=== PATIENT | female | born 1990 | race Caucasian/White ===

== ENCOUNTER 2020-02-15 10:55 | Inpatient (IN) | payer OTHER ==
[~2020-02-15] VITALS: Ht 170.2 cm; Wt 96.9 kg
[~2020-02-15 10:55] MED LIST: ABIL1TAB11 PO; AMLO25TA PO
[2020-02-15 12:14] LABS: HEMATOCRIT 44.4 % (36.0-47.0); HEMOGLOBIN 14.2 g/dl (12.0-15.5); MEAN CORPUSCULAR VOLUME 90.6 fl (80.0-96.0); PLATELET COUNT, AUTOMATED 285 10^3/uL (150-450); WHITE BLOOD COUNT 9.6 10^3/uL (4.0-10.0)
[2020-02-15 12:35] LABS: HCG, SERUM QUALITATIVE NEGATIVE (NEGATIVE)
[2020-02-15 12:53] LABS: ACETAMINOPHEN LEVEL < 2.0 UG/ML (10.0-30.0); ALT/SGPT 24 U/L (12-78); BILIRUBIN,DIRECT 0.2 MG/DL (0.0-0.2); BILIRUBIN,TOTAL 0.6 MG/DL (0.2-1.0); BLOOD UREA NITROGEN 7 MG/DL (7-18); CALCIUM LEVEL 9.6 MG/DL (8.5-10.1); CARBON DIOXIDE LEVEL 25 MEQ/L (21-32); CHLORIDE LEVEL 107 MEQ/L (98-107); CREATININE FOR GFR 0.76 MG/DL (0.55-1.30); ETHYL ALCOHOL (ETHANOL) < 0.003 % (0.000-0.010); GLOMERULAR FILTRATION RATE > 60.0 (>60); GLUCOSE, FASTING 93 MG/DL (70-100); POTASSIUM SERUM 4.1 MEQ/L (3.5-5.1); SALICYLATE LEVEL < 1.7 MG/DL (5.0-30.0); SODIUM LEVEL 141 MEQ/L (136-145); THYROID STIMULATING HORMONE 0.834 uIU/ML (0.358-3.740); TOTAL PROTEIN 7.3 GM/DL (6.4-8.2)
[2020-02-15] MEDS ORDERED: LORazepam 2 MG TAB PO STA (13:01)
[2020-02-15 14:03] LABS: AMPHETAMINES LEVEL URINE NEGATIVE (NEGATIVE); BARBITURATES URINE NEGATIVE (NEGATIVE); BENZODIAZEPINES URINE POSITIVE (NEGATIVE); CANNABINOIDS URINE POSITIVE (NEGATIVE); COCAINE METABOLITE URINE NEGATIVE (NEGATIVE); METHADONE URINE NEGATIVE (NEGATIVE); OPIATES URINE NEGATIVE (NEGATIVE); PHENCYCLIDINE URINE NEGATIVE (NEGATIVE)
[2020-02-15] MEDS ORDERED: MOM 30ML SUSPENSION UDC PO PRN (15:00)
[2020-02-15] MEDS ORDERED: MAALOX 30 ML SUSP *UDC PO PRN (15:00)
[2020-02-15] MEDS ORDERED: AMLO2.5T3 PO (15:38)
[2020-02-15] MEDS ORDERED: ABIL1TAB11 PO (15:38)
[2020-02-15 17:31] VITALS: BP 134/78
[2020-02-15] MEDS: traZODone 50 MG TAB PO PRN (21:11)
[2020-02-15] MEDS: OLANZapine ORAL DISINTEGRATING TAB 5MG PO PRN (21:11)
[2020-02-16] MEDS: OLANZapine ORAL DISINTEGRATING TAB 5MG PO PRN (07:48)
--- NOTE | 2020-02-16 10:06 | MHHPEPDOC ---
[facility] History & Physical History and Physical DATE OF ADMISSION: Feb 15, 2020 at 15:00 HPI: Patients attempted to be seen today, however, she is still quite distorted. Shes nearly catatonic and is unable to respond to many discussions. She primarily is unable to communicate in single words. She was admitted overnight after reportedly making suicidal statements, but she had poor memory of the reported events. She appears to have decompensated quite a bit. No notable history of suicide attempts. Family history unclear at this time. Social history had been living with mother. No known substance use problems at this time. Unable to obtain other information. MEDICAL HISTORY: The patient has a medical history significant for its two previous submissions last several weeks ago when she was started on Abilify for psychotic illness. Objective Speech: Broken and sparse. Slowed speaking. Repetitive words. Judgement: Poor. Insight: Poor. 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 Will discontinue Abilify, Zyprexa, and Haldol. Shes likely catatonic which could be causing her difficulties with catatonia. Well start Ativan 0.5 mg BID; recommend direct service professional provider to be cautious with neuroleptic as she resolves as it could provoke more catatonia. Low threshold for 1 to 1 sitter due to unusual behavior. Estimate length of stay is 3-5 days. Vital Signs Vital Signs Date Time Temp Pulse Resp B/P (MAP) Pulse Ox O2 Delivery O2 Flow Rate FiO2 02/15/20 17:31 97.2 86 16 134/78 (96) 97 Room Air Laboratory Data 24H Labs Laboratory Tests 2 02/15/20 11:53: Nucleated Red Blood Cells % (auto) 0.0, Anion Gap 9, Glomerular Filtration Rate > 60.0, Calcium Level 9.6, Total Bilirubin 0.6, Direct Bilirubin 0.2, Aspartate Amino Transf (AST/SGOT) 13, Alanine Aminotransferase (ALT/SGPT) 24, Alkaline Phosphatase 59, Total Protein 7.3, Albumin 4.0, Albumin/Globulin Ratio 1.2, Thyroid Stimulating Hormone (TSH) 0.834, Human Chorionic Gonadotropin, Qual NEGATIVE, Salicylates Level < 1.7L, Acetaminophen Level < 2.0L, Ethyl Alcohol Level < 0.003 02/15/20 13:21: Urine Opiates Screen NEGATIVE, Urine Methadone Screen NEGATIVE, Urine Barbiturates Screen NEGATIVE, Urine Phencyclidine Screen NEGATIVE, Urine Amphet amines Screen NEGATIVE, Urine Benzodiazepines Screen POSITIVEH, Urine Cocaine Metabolite Screen NEGATIVE, Urine Cannabinoids Screen POSITIVEH CBC/BMP Laboratory Tests 02/15/20 11:53 Medications Scheduled Amlodipine Besylate (Amlodipine Besylate) 2.5 Mg Tablet, 2.5 MG PO BID, (Reported) PATIENT STATES THIS IS MAKING HER JITTERY Aripiprazole (Abilify) 5 Mg Tablet, 5 MG PO QHS, (Reported) Allergies Coded Allergies: No Known Allergies (Verified , 06/18/04) DAYSI GAGE DO Feb 16, 2020 10:06
[2020-02-16] MEDS ORDERED: LORazepam 0.5 MG TAB PO ONE (13:45)
[2020-02-16 18:38] VITALS: BP 112/66
[2020-02-16] MEDS: LORazepam 0.5 MG TAB PO SCH (21:03)
[2020-02-17] MEDS: traZODone 50 MG TAB PO PRN ×2 (01:01→23:52)
[2020-02-17 07:06] VITALS: BP 133/84
[2020-02-17] MEDS: LORazepam 0.5 MG TAB PO SCH (09:08)
[2020-02-17] MEDS ORDERED: LORazepam 1 MG TAB PO ONE (13:00)
[2020-02-17 17:34] VITALS: BP 133/82
--- NOTE | 2020-02-17 17:45 | HPEPDOC ---
General Date of Admission Feb 15, 2020 at 15:00 Date of Service: Feb 16, 2020 Chief Complaint The patient is a 30-year-old female admitted with a reason for visit of Unspecified Psychotic Disorder. History of Present Illness Patient is a 29-year-old female with past medical history of anxiety, unspecified psychosis, hypertension [facility] for unspecified psychosis. She is being medically examined today. Patient is very anxious and suspicious and easily distracted. She was even afraid to go into the exam room. She was afraid of the stethoscope. She was continuously saying " Why do you need to know that" " Its very confusing". At one point when i asked about her mother she started crying and wanted me to call her. She would start a sentence then go to a different answer I needed to continuously cue her back to our topic. Impossible to get a relevant history. She said yes to all symptoms. She said she had congestion, and it was difficult to breathe when i asked if she had asthma she said yes. she said yes to back pain and bilateral hip pain which she said were her kidneys that were hurting. She said yes to abdominal pain but could not describe it further. She repeatedly asked to give her something to make her feel better. Home Medications Scheduled Amlodipine Besylate (Amlodipine Besylate) 2.5 Mg Tablet, 2.5 MG PO BID, (Reported) PATIENT STATES THIS IS MAKING HER JITTERY Aripiprazole (Abilify) 5 Mg Tablet, 5 MG PO QHS, (Reported) Allergies Coded Allergies: No Known Allergies (Verified , 06/18/04) Past Medical History Medical History Anxiety Unspecified psychosis hypertension Surgical History Anal fissure repair Family History Significant Family History: Renal disease father Social History * Smoker: quit less than 1 year Alcohol: Denies Drugs: marijuana A-FIB/CHADSVASC A-FIB History Current/History of A-Fib/PAF?: No Physical Examination General Exam: Positive: Alert, Cooperative, No Acute Distress, Other (Easily distracted, ) Eye Exam: Positive: PERRLA, Conjunctiva & lids normal, EOMI; Negative: Sclera icteric ENT Exam: Positive: Atraumatic, Mucous membr. moist/pink, Pharynx Normal Neck Exam: Positive: Supple; Negative: JVD, thyromegaly Chest Exam: Positive: Clear to auscultation, Normal air movement Heart Exam: Positive: Rate Normal, Regular Rhythm, Normal S1, Normal S2; Negative: Murmurs, Rubs Abdomen Exam: Positive: Normal bowel sounds, Soft; Negative: Tenderness, Hepatospenomegaly Extremity Exam: Positive: Normal pulses; Negative: Clubbing, Cyanosis, Edema Neuro Exam: Positive: Normal Speech, Strength at 5/5 X4 ext, Normal Tone Psych Exam: Positive: Anxiety Vital Signs Vital Signs Date Time Temp Pulse Resp B/P (MAP) Pulse Ox O2 Delivery O2 Flow Rate FiO2 02/16/20 18:38 97.7 86 18 112/66 (81) 02/15/20 17:31 97 Room Air Assessment/Plan Patient is a 29-year-old female with past medical history of anxiety, unspecified psychosis, hypertension was [facility] for unspecified psychosis. She is being medically examined today. Psychosis As per psychiatry No active medical issues will sign off. Plan / VTE VTE Prophylaxis Ordered?: No (freely ambulatory) SHELTON DAVIS MD Feb 17, 2020 05:49
[2020-02-17] MEDS: LORazepam 1 MG TAB PO SCH (23:52)
[2020-02-18 06:49] VITALS: BP 134/89
[2020-02-18] MEDS: LORazepam 1 MG TAB PO SCH ×3 (08:56→20:24)
[2020-02-18 18:44] VITALS: BP 118/76
[2020-02-18] MEDS: traZODone 50 MG TAB PO PRN (20:24)
[2020-02-18] MEDS: ACETAMINOPHEN TAB 650MG DOSE (2X325MG) PO PRN (21:43)
[2020-02-19 06:08] VITALS: BP 130/87
--- NOTE | 2020-02-19 07:39 | MHIPN ---
PSYCHIATRIC DATE: 02/17/2020 The patient states today "I could be doing better." She said she did not get much sleep. She is definitely confused. She told me that she has racing thoughts, and before I could say anything else she stood up and was holding her stomach and was walking toward me, and she kept repeating "Wait, wait. There is something wrong. Wait." At that point I could not get much more information from her, and staff had to help escort her out of the room, because she did not want to leave. MENTAL STATUS EXAMINATION: Unable to complete but definitely she is psychotic with poor insight and judgment. DIAGNOSIS: Unspecified psychotic disorder. TREATMENT PLAN: At this point, as I said, the patient is acutely psychotic, and I did order some Haldol 10 mg plus Ativan 1 mg dose to give the patient, because she was pretty agitated and distressed at the time, and she did take this willingly. [id number]
[2020-02-19] MEDS: LORazepam 1 MG TAB PO SCH ×3 (07:48→20:12)
[2020-02-19 16:05] VITALS: BP 126/75
[2020-02-19] MEDS ORDERED: OLANZapine ORAL DISINTEGRATING TAB 5MG PO PRN (16:45)
[2020-02-19 17:36] LABS: HEPATITIS B CORE ANTIBODY IGM NEGATIVE (NEGATIVE); HEPATITIS C VIRUS ABY INDEX 0.1 INDEX (<0.8); HIV 1&2 SCREEN CENTAUR NEGATIVE (NEGATIVE)
[2020-02-19 19:05] LABS: CHLAMYDIA DNA AMPLIFICATION NEGATIVE (NEGATIVE); GC DNA AMPLIFICATION NEGATIVE (NEGATIVE)
--- NOTE | 2020-02-19 20:11 | MHIPNPDOC ---
[facility] Progress Note Progress Note DATE OF SERVICE: 02/19/20 HISTORY: As per ED report: "Pt was brought to the ED by City Planning Aide(Aaron Freeman, ) after pt informed him today she needed help due to wanting to kill her Mother or herself. grain oilseed or pasture farm worker then took pt to the clinic where she saw a clinician and appeared confused and didn't remember making those threats. Pt has a hx of psychosis and last admitted 01/30/20 and d/c 02/08/20... Chief Complaint pt states, "I am confused and I need rest." Pt is refusing to speak to TW due to being too tired and confused. Pt appears bizarre at bedside, unable to focus. She denies hearing voices, yet is delayed in her responses. Pt is difficult to engage in conversation and mood fluctuates quite rapidly. Pt was recently admitted to [facility] on 01/29 after she was acting bizarre and running around the house naked and striking poses. Once she arrived to the ED she claimed she did not know what was going on and the ED staff was trying to kill her. Pt currently denies SI and HI, however asphalt worker is concerned pt is decompensating... VITAL SIGNS: See below. NEW TEST RESULTS: See below CURRENT MEDICATIONS: See below. MENTAL STATUS EXAMINATION: Patient is a 30-year old female, who is alert, dressed in hospital clothes, cooperative, very anxious, presents with attention seeking behavior. Speech: Is disorganized, difficult to understand, keeps repeating Wait, wait and then she tarts crying. Thought processes including: disorganized, she doesn't engage in a conversation. She cries and walks out saying she needs to use the telephone Thought content: delusional, Description of associations: loose. Description of abnormal or psychotic thoughts: she is delusional, disorganized, she denies SI/HI Judgment: poor Insight: poor. Orientation: Recent and remote memory: Unable to assess, patient is psychotic Attention span and concentration: Easily distracted Fund of knowledge: unable to assess, patient is psychotic Mood: anxious, sad, depressed Affect: congruent with mood, full, reactive. Labile DIAGNOSES: 1. Unspecified psychotic disorder ASSESSMENT: The patient was quite disorganized, she is psychotic. At one point she knelt on the floor, raised her arms as if she was praying, then she sat on the floor and safety aides came to tell her she couldn't lay on the floor, she kept saying, "No, wait, wait.... " and then she started crying just for a short period of time. When I saw her , she did not engage in a conversation with me, she was visibly upset, she kept telling me something about her and that she needed to talk to him. She was extremely anxious, she stepped out of the room and went to use the telephone, started taking to someone, I'm not sure it was her but she was very agitated on the phone. I had put orders for Abilify and Zyprexa but then, I read Dr. Pérez's notes where he says he thinks she was catatonic, therefore I discontinued the orders for Abilify and Zyprexa. She never took either one of those medications. She seems to have attention seeking behavior, she is very dramatic but she is psychotic. MANAGEMENT PLAN: As per Dr. Pérez TIME SPENT: 10 minutes. Vital Signs Vital Signs Date Time Temp Pulse Resp B/P (MAP) Pulse Ox O2 Delivery O2 Flow Rate FiO2 02/19/20 06:08 98.5 102 18 130/87 (101) 100 Room Air Current Medications Current Medications Medications (Trade) Dose Ordered Sig/Taurus Route PRN Reason Start Time Stop Time Status Last Admin Dose Admin Acetaminophen (Tylenol Tab) 650 mg Q6HP PRN PO HEADACHE or DISCOMFORT 02/15/20 15:00 02/18/20 21:43 Al Hydrox/Mg Hydrox/Simethicone (Mylanta) 30 ml Q4HP PRN PO HEARTBURN/INDIGESTION 02/15/20 15:00 Aripiprazole (AbiLIFY) 5 mg QHS PO 02/15/20 21:00 02/16/20 13:37 DC 02/15/20 20:49 Haloperidol (Haldol) 10 mg Q6HP PRN PO ANXIETY/AGITATION 02/16/20 10:15 02/16/20 13:37 DC 02/16/20 10:26 Home Med (Med Rec Complete!) ASDIRECTED XX 02/15/20 15:45 02/15/20 15:40 DC Lorazepam (Ativan) 0.5 mg BID PO 02/16/20 21:00 02/17/20 22:36 DC 02/17/20 09:08 Lorazepam (Ativan) 1 mg TID PO 02/17/20 21:00 02/19/20 15:14 Lorazepam (Ativan) 2 mg STAT STAT PO 02/15/20 13:01 02/15/20 13:02 DC 02/15/20 13:10 Magnesium Hydroxide (Milk Of Magnesia) 30 ml DAILYPRN PRN PO CONSTIPATION 02/15/20 15:00 Olanzapine (ZyPREXA ZYDIS) 5 mg Q4HP PRN PO ANXIETY/AGITATION 02/15/20 21:00 02/16/20 10:14 DC 02/16/20 07:48 Trazodone HCl (Desyrel) 50 mg QHSP PRN PO INSOMNIA 02/15/20 15:00 02/18/20 20:24 Allergies Coded Allergies: No Known Allergies (Verified , 06/18/04) JOYCE LINARES MD Feb 19, 2020 15:22
[2020-02-19] MEDS: traZODone 50 MG TAB PO PRN (20:12)
[2020-02-20] MEDS ORDERED: OLANZapine ORAL DISINTEGRATING TAB 5MG PO ONE (06:30)
[2020-02-20] MEDS ORDERED: LORazepam 1 MG TAB PO ONE (06:30)
[2020-02-20] MEDS: LORazepam 1 MG TAB PO SCH (09:06)
--- NOTE | 2020-02-20 10:40 | MHIPNPDOC ---
[facility] Progress Note Progress Note DATE OF SERVICE: 02/20/20 HPI: Carmela presents today for her psychotic disorder. She is currently sedated. She has been disorganized and aggressive through out the day, unable to be redirected. Objective Behavior: Pleasant. unable to engage. distorted. Speech: disorganized. Normal volume. poor tangible. Normal rate. Judgement: poor Affect: dysphoric Assessment F29 Unspecified psychosis not due to a substance or known physiological condition Plan Resumed 5 mg of Abilify with reduction of ativan due to reported sedation. Vital Signs Vital Signs Date Time Temp Pulse Resp B/P (MAP) Pulse Ox O2 Delivery O2 Flow Rate FiO2 02/19/20 16:05 98.0 100 20 126/75 (92) 02/19/20 06:08 100 Room Air Laboratory Data 24H Labs Laboratory Tests 2 02/19/20 15:35: Syphilis Serology NONREACTIVE, Hepatitis B Core IgM Antibody NEGATIVE, Hepatitis C Antibody Index 0.1, HIV Antigen/Antibody Combo Qual NEGATIVE 02/19/20 17:00: Chlamydia trachomatis DNA (FRANCISCO) NEGATIVE, Neisseria gonorrhoeae DNA (FRANCISCO) NEGATIVE, Trichomonas vaginalis (PCR) NOT DETECTED Current Medications Current Medications Medications (Trade) Dose Ordered Sig/Taurus Route PRN Reason Start Time Stop Time Status Last Admin Dose Admin Acetaminophen (Tylenol Tab) 650 mg Q6HP PRN PO HEADACHE or DISCOMFORT 02/15/20 15:00 02/18/20 21:43 Al Hydrox/Mg Hydrox/Simethicone (Mylanta) 30 ml Q4HP PRN PO HEARTBURN/INDIGESTION 02/15/20 15:00 Aripiprazole (AbiLIFY) 5 mg BID PO 02/19/20 21:00 Cancel Aripiprazole (AbiLIFY) 5 mg QHS PO 02/15/20 21:00 02/16/20 13:37 DC 02/15/20 20:49 Haloperidol (Haldol) 10 mg Q6HP PRN PO ANXIETY/AGITATION 02/16/20 10:15 02/16/20 13:37 DC 02/16/20 10:26 Home Med (Med Rec Complete!) ASDIRECTED XX 02/15/20 15:45 02/15/20 15:40 DC Lorazepam (Ativan) 0.5 mg BID PO 02/16/20 21:00 02/17/20 22:36 DC 02/17/20 09:08 Lorazepam (Ativan) 1 mg TID PO 02/17/20 21:00 02/20/20 09:06 Lorazepam (Ativan) 2 mg STAT STAT PO 02/15/20 13:01 02/15/20 13:02 DC 02/15/20 13:10 Magnesium Hydroxide (Milk Of Magnesia) 30 ml DAILYPRN PRN PO CONSTIPATION 02/15/20 15:00 Olanzapine (ZyPREXA ZYDIS) 5 mg Q4HP PRN PO ANXIETY/AGITATION 02/15/20 21:00 02/16/20 10:14 DC 02/16/20 07:48 Olanzapine (ZyPREXA ZYDIS) 5 mg Q6HP PRN PO ANXIETY/AGITATION 02/19/20 16:45 Cancel Trazodone HCl (Desyrel) 50 mg QHSP PRN PO INSOMNIA 02/15/20 15:00 02/19/20 20:12 Allergies Coded Allergies: No Known Allergies (Verified , 06/18/04) DAYSI GAGE DO Feb 20, 2020 10:40
[2020-02-20 16:28] VITALS: BP 114/67
[2020-02-20] MEDS: traZODone 50 MG TAB PO PRN (22:28)
[2020-02-21] VITALS (14 sets, daily range): BP systolic 138–183; BP diastolic 68–87
[2020-02-21] MEDS ORDERED: LORazepam 0.5 MG TAB PO ONE (04:15)
--- NOTE | 2020-02-21 10:38 | MHIPNPDOC ---
[facility] Progress Note Progress Note DATE OF SERVICE: 02/21/20 Subjective HPI: Patient met with multiple times throughout the day, she is quite distorted and disorganized. She was lashing out at various individuals yelling, screaming, and jumping down the hallways and throwing objects. She continues to be hysterical, running around in a fair daze state throughout the day. Objective Appearance: Hygiene fair. Thought Form: Tangential. Psychotic. Thought blocking present. Judgement: Poor. Insight: Poor. Assessment F29 Unspecified psychosis not due to a substance or known physiological cond ition Plan Continue Abilify and Ativan at this time, will likely need to increase. 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 Some treatment team members are concerned about behavioral problems, but it appears to be more the product of severe disorganization rather than a specific behavioral problem. Vital Signs Vital Signs Date Time Temp Pulse Resp B/P (MAP) Pulse Ox O2 Delivery O2 Flow Rate FiO2 02/20/20 16:28 97.9 99 18 114/67 (83) 02/19/20 06:08 100 Room Air Current Medications Current Medications Medications (Trade) Dose Ordered Sig/Taurus Route PRN Reason Start Time Stop Time Status Last Admin Dose Admin Acetaminophen (Tylenol Tab) 650 mg Q6HP PRN PO HEADACHE or DISCOMFORT 02/15/20 15:00 02/18/20 21:43 Al Hydrox/Mg Hydrox/Simethicone (Mylanta) 30 ml Q4HP PRN PO HEARTBURN/INDIGESTION 02/15/20 15:00 Aripiprazole (AbiLIFY) 5 mg BID PO 02/19/20 21:00 Cancel Aripiprazole (AbiLIFY) 5 mg QHS PO 02/20/20 21:00 02/20/20 22:28 Aripiprazole (AbiLIFY) 5 mg QHS PO 02/15/20 21:00 02/16/20 13:37 DC 02/15/20 20:49 Haloperidol (Haldol) 10 mg Q6HP PRN PO ANXIETY/AGITATION 02/16/20 10:15 02/16/20 13:37 DC 02/16/20 10:26 Home Med (Med Rec Complete!) ASDIRECTED XX 02/15/20 15:45 02/15/20 15:40 DC Lorazepam (Ativan) 0.5 mg BID PO 02/16/20 21:00 02/17/20 22:36 DC 02/17/20 09:08 Lorazepam (Ativan) 1 mg TID PO 02/17/20 21:00 02/20/20 11:45 DC 02/20/20 09:06 Lorazepam (Ativan) 2 mg STAT STAT PO 02/15/20 13:01 02/15/20 13:02 DC 02/15/20 13:10 Magnesium Hydroxide (Milk Of Magnesia) 30 ml DAILYPRN PRN PO CONSTIPATION 02/15/20 15:00 Olanzapine (ZyPREXA ZYDIS) 5 mg Q4HP PRN PO ANXIETY/AGITATION 02/15/20 21:00 02/16/20 10:14 DC 02/16/20 07:48 Olanzapine (ZyPREXA ZYDIS) 5 mg Q6HP PRN PO ANXIETY/AGITATION 02/19/20 16:45 Cancel Trazodone HCl (Desyrel) 50 mg QHSP PRN PO INSOMNIA 02/15/20 15:00 02/20/20 22:28 Allergies Coded Allergies: No Known Allergies (Verified , 06/18/04) DAYSI GAGE DO Feb 21, 2020 10:37
[2020-02-21] MEDS ORDERED: BENZTROPINE 0.5 MG TAB PO ONE (10:45)
[2020-02-21] MEDS ORDERED: diphenhydrAMINE 50MG/ML VIAL (J1200) IM STA ×2 (11:15→15:43)
[2020-02-21] MEDS ORDERED: chlorproMAZINE INJ 50MG/2ML AMP (J3230) IM STA ×2 (11:15→12:05)
--- NOTE | 2020-02-21 11:15 | MHIR ---
General Date: Feb 21, 2020 Time Initiated: 11:13 Restraint Documentation Order/Evaluation FACE TO FACE: yes PHYSICIAN ASSESSMENT: agitation, out of control REASON FOR RESTRAINT: Patient poses imminent danger of harming self or others: as above DE-ESCALATION INTERVENTIONS ATTEMPTED BEFORE USE OF RESTRAINTS:verbal and medication options [MECHANICAL AND/OR CHEMICAL] RESTRAINTS USED: 4 points and chemical sedation LENGTH OF TIME ORDERED IN RESTRAINTS: 240 minutes, less if in behavioral control WHEN TO DISCONTINUE RESTRAINTS: as above Post evaluation of restraint due in 24 hours. DAYSI GAGE DO Feb 21, 2020 11:15
[2020-02-21] MEDS ORDERED: HALOPERIDOL 5MG/ML VIAL (J1630 PER 1) IM STA (15:43)
[2020-02-21] MEDS ORDERED: LORazepam 2 MG/ML VIAL IM STA (15:43)
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
[2020-02-21 18:12] LABS: HSV IgM TYPES 1&2 <0.91 Ratio (0.00-0.90)
[2020-02-21] MEDS: traZODone 50 MG TAB PO PRN (21:27)
[2020-02-22 06:40] VITALS: BP 145/91
--- NOTE | 2020-02-22 08:15 | MHIPN ---
DATE: 02/18/2020 The patient today remains very psychotic. She has problems. She will start a sentence and will not even finish it, so cannot get much in the way of any information from her. MENTAL STATUS EXAMINATION: Unable to complete, because, as I said, you cannot really get much information from her. She is definitely psychotic, and insight and judgment are poor. DIAGNOSIS: Unspecified psychotic disorder. TREATMENT PLAN: The patient remains acutely psychotic. At this point she remains only on Ativan, as this is what she was placed on upon admission because of catatonia. When she gets really agitated, I have given her some Haldol as an as needed. JESÚS
[2020-02-22] MEDS ORDERED: OLANZapine ORAL DISINTEGRATING TAB 5MG PO ONE (10:45)
--- NOTE | 2020-02-22 11:12 | MHIPNPDOC ---
[facility] Progress Note Progress Note DATE OF SERVICE: 02/22/20 Subjective HPI: Patient met with multiple times throughout the day, she is quite distorted and disorganized. She was lashing out at various individuals yelling, screaming, and jumping down the hallways and throwing objects. She continues to be hysterical, running around in a fair daze state throughout the day. Objective Appearance: Hygiene fair. Thought Form: Tangential. Psychotic. Thought blocking present. Judgement: Poor. Insight: Poor. Assessment F29 Unspecified psychosis not due to a substance or known physiological cond ition Plan Continue Abilify and Ativan at this time, will likely need to increase. 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 Some treatment team members are concerned about behavioral problems, but it appears to be more the product of severe disorganization rather than a specific behavioral problem. Vital Signs Vital Signs Date Time Temp Pulse Resp B/P (MAP) Pulse Ox O2 Delivery O2 Flow Rate FiO2 02/22/20 06:40 98.0 100 18 145/91 (109) 97 Room Air Current Medications Current Medications Medications (Trade) Dose Ordered Sig/Taurus Route PRN Reason Start Time Stop Time Status Last Admin Dose Admin Acetaminophen (Tylenol Tab) 650 mg Q6HP PRN PO HEADACHE or DISCOMFORT 02/15/20 15:00 02/18/20 21:43 Al Hydrox/Mg Hydrox/Simethicone (Mylanta) 30 ml Q4HP PRN PO HEARTBURN/INDIGESTION 02/15/20 15:00 Aripiprazole (AbiLIFY) 5 mg BID PO 02/19/20 21:00 Cancel Aripiprazole (AbiLIFY) 5 mg QHS PO 02/20/20 21:00 02/21/20 21:27 Aripiprazole (AbiLIFY) 5 mg QHS PO 02/15/20 21:00 02/16/20 13:37 DC 02/15/20 20:49 Chlorpromazine HCl (Thorazine) 50 mg STAT STAT IM 02/21/20 11:15 02/21/20 11:17 DC 02/21/20 11:22 Chlorpromazine HCl (Thorazine) 100 mg STAT STAT IM 02/21/20 12:05 02/21/20 12:09 DC 02/21/20 12:12 Diphenhydramine HCl (Benadryl) 25 mg STAT STAT IM 02/21/20 11:15 02/21/20 11:17 DC 02/21/20 11:22 Diphenhydramine HCl (Benadryl) 50 mg STAT STAT IM 02/21/20 15:43 02/21/20 15:46 DC 02/21/20 15:49 Haloperidol (Haldol) 10 mg Q6HP PRN PO ANXIETY/AGITATION 02/16/20 10:15 02/16/20 13:37 DC 02/16/20 10:26 Haloperidol (Haldol) 10 mg STAT STAT IM 02/21/20 15:43 02/21/20 15:46 DC 02/21/20 15:49 Home Med (Med Rec Complete!) ASDIRECTED XX 02/15/20 15:45 02/15/20 15:40 DC Lorazepam (Ativan) 0.5 mg BID PO 02/16/20 21:00 02/17/20 22:36 DC 02/17/20 09:08 Lorazepam (Ativan) 1 mg TID PO 02/17/20 21:00 02/20/20 11:45 DC 02/20/20 09:06 Lorazepam (Ativan) 2 mg STAT STAT IM 02/21/20 15:43 02/21/20 15:46 DC 02/21/20 15:48 Lorazepam (Ativan) 2 mg STAT STAT PO 02/15/20 13:01 02/15/20 13:02 DC 02/15/20 13:10 Magnesium Hydroxide (Milk Of Magnesia) 30 ml DAILYPRN PRN PO CONSTIPATION 02/15/20 15:00 Olanzapine (ZyPREXA ZYDIS) 5 mg Q4HP PRN PO ANXIETY/AGITATION 02/15/20 21:00 02/16/20 10:14 DC 02/16/20 07:48 Olanzapine (ZyPREXA ZYDIS) 5 mg Q6HP PRN PO ANXIETY/AGITATION 02/19/20 16:45 Cancel Trazodone HCl (Desyrel) 50 mg QHSP PRN PO INSOMNIA 02/15/20 15:00 02/21/20 21:27 Allergies Coded Allergies: No Known Allergies (Verified , 06/18/04) DAYSI GAGE DO Feb 22, 2020 11:12
[2020-02-22 17:23] VITALS: BP 133/90
[2020-02-22] MEDS: traZODone 50 MG TAB PO PRN (21:07)
[2020-02-23 06:39] VITALS: BP 137/71
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
[2020-02-23] MEDS: haloperidoL 5 MG TAB PO SCH ×2 (10:33→20:51)
[2020-02-23 16:05] VITALS: BP 138/88
[2020-02-23] MEDS: traZODone 50 MG TAB PO PRN (20:51)
[2020-02-24] MEDS ORDERED: LORazepam 1 MG TAB PO STA (01:42)
[2020-02-24] MEDS ORDERED: OLANZapine ORAL DISINTEGRATING TAB 5MG PO STA (01:42)
[2020-02-24 05:59] VITALS: BP 143/81
[2020-02-24] MEDS: haloperidoL 5 MG TAB PO SCH ×2 (09:12→20:11)
[2020-02-24] MEDS: OLANZapine ORAL DISINTEGRATING TAB 5MG PO PRN (10:02)
[2020-02-24] MEDS: ACETAMINOPHEN TAB 650MG DOSE (2X325MG) PO PRN (10:06)
[2020-02-24 10:15] VITALS: BP 135/74
[2020-02-24] MEDS ORDERED: HALOPERIDOL 5MG/ML VIAL (J1630 PER 1) IM STA (10:21)
[2020-02-24] MEDS ORDERED: LORazepam 2 MG/ML VIAL IM STA (10:21)
[2020-02-24] MEDS ORDERED: diphenhydrAMINE 50MG/ML VIAL (J1200) IM STA (10:21)
[2020-02-24 10:30] VITALS: BP 129/70
--- NOTE | 2020-02-24 10:32 | MHIR ---
General Date: Feb 24, 2020 Time Initiated: 10:15 Restraint Documentation Order/Evaluation FACE TO FACE: Yes. PHYSICIAN ASSESSMENT: Pulling on restraints, agitated, manipulative as she was changing answers and then saying she was lying REASON FOR RESTRAINT: Patient poses imminent danger of harming self or others: Jumping on furniture, pushing staff, threatening other patients. DE-ESCALATION INTERVENTIONS ATTEMPTED BEFORE USE OF RESTRAINTS: Verbal redirection and PO medications [MECHANICAL AND/OR CHEMICAL] RESTRAINTS USED: 4 points and chemical sedation LENGTH OF TIME ORDERED IN RESTRAINTS: 240 minutes or less. WHEN TO DISCONTINUE RESTRAINTS: When the patient is no longer a threat to themselves or others. Post evaluation of restraint due in 24 hours. BETH ABRAHAM DO Feb 24, 2020 10:32
[2020-02-24 16:20] VITALS: BP 119/67
--- NOTE | 2020-02-24 16:23 | MHIPNPDOC ---
[facility] Progress Note Progress Note DATE OF SERVICE: 02/24/20 HISTORY: As per ED reports: "As per ED report: "Pt was brought to the ED by [employer](Aaron Freeman, ) after pt informed him today she needed help due to wanting to kill her Mother or herself. social staff worker then took pt to the clinic where she saw a clinician and appeared confused and didn't remember making those threats. Pt has a hx of psychosis and last admitted 01/30/20 and d/c 02/08/20... Chief Complaint pt states, "I am confused and I need rest." Pt is refusing to speak to TW due to being too tired and confused. Pt appears bizarre at bedside, unable to focus. She denies hearing voices, yet is delayed in her responses. Pt is difficult to engage in conversation and mood fluctuates quite rapidly. Pt was recently admitted to [facility] on 01/29 after she was acting bizarre and running around the house naked and striking poses. Once she arrived to the ED she claime d she did not know what was going on and the ED staff was trying to kill her. Pt currently denies SI and HI, however track repair worker is concerned pt is decompensating..." VITAL SIGNS: See below. NEW TEST RESULTS: See below CURRENT MEDICATIONS: See below. MENTAL STATUS EXAMINATION: Patient is a 30-year old female, who is alert, dressed in hospital clothes, uncooperative Speech: Is disorganized, she mumbles, is not engaging in a conversation at this time Thought processes including: disorganized Thought content: Delusional, she is not talking to me, she is mumbling, not making eye contact. Description of associations: loose. Description of abnormal or psychotic thoughts: she is delusional, disorganized, she seems to be responding to internal stimuli Judgment: poor Insight: poor. Orientation: Recent and remote memory: Unable to assess, patient is psychotic Attention span and concentration: Easily distracted, she is not paying attention to me when I speak to her Fund of knowledge: unable to assess, patient is psychotic Mood: anxious, sad, depressed Affect: congruent with mood, full, reactive. Labile DIAGNOSES: 1. Unspecified psychotic disorder ASSESSMENT:The patient had to be restrained this morning because she was not responding to re direction. She was pushing staff, attempting to grab them, climbing on furniture, threatening her peers. Staff contacted me at 10:15 a.m because she was getting coded. I ordered 10 mgs of Haldol, 2 mgs of Ativan and 50 mgs of Benadryl. She was let off the restraints around 12:30 PM and she was stable, her VS were all the time within normal limits but she is still psychotic and difficult to engage with. MANAGEMENT PLAN: As per Dr. Pérez TIME SPENT: 20 minutes. Vital Signs Vital Signs Date Time Temp Pulse Resp B/P (MAP) Pulse Ox O2 Delivery O2 Flow Rate FiO2 02/24/20 10:30 97.8 83 16 129/70 95 02/24/20 10:15 Room Air Current Medications Current Medications Medications (Trade) Dose Ordered Sig/Taurus Route PRN Reason Start Time Stop Time Status Last Admin Dose Admin Acetaminophen (Tylenol Tab) 650 mg Q6HP PRN PO HEADACHE or DISCOMFORT 02/15/20 15:00 02/24/20 10:06 Al Hydrox/Mg Hydrox/Simethicone (Mylanta) 30 ml Q4HP PRN PO HEARTBURN/INDIGESTION 02/15/20 15:00 Aripiprazole (AbiLIFY) 5 mg BID PO 02/19/20 21:00 Cancel Aripiprazole (AbiLIFY) 5 mg QHS PO 02/20/20 21:00 02/23/20 10:20 DC 02/22/20 21:07 Aripiprazole (AbiLIFY) 5 mg QHS PO 02/15/20 21:00 02/16/20 13:37 DC 02/15/20 20:49 Chlorpromazine HCl (Thorazine) 50 mg STAT STAT IM 02/21/20 11:15 02/21/20 11:17 DC 02/21/20 11:22 Chlorpromazine HCl (Thorazine) 100 mg STAT STAT IM 02/21/20 12:05 02/21/20 12:09 DC 02/21/20 12:12 Diphenhydramine HCl (Benadryl) 25 mg STAT STAT IM 02/21/20 11:15 02/21/20 11:17 DC 02/21/20 11:22 Diphenhydramine HCl (Benadryl) 50 mg STAT STAT IM 02/21/20 15:43 02/21/20 15:46 DC 02/21/20 15:49 Diphenhydramine HCl (Benadryl) 50 mg STAT STAT IM 02/24/20 10:21 02/24/20 10:27 DC 02/24/20 10:38 Haloperidol (Haldol) 5 mg BID PO 02/23/20 09:00 02/24/20 09:12 Haloperidol (Haldol) 10 mg Q6HP PRN PO ANXIETY/AGITATION 02/16/20 10:15 02/16/20 13:37 DC 02/16/20 10:26 Haloperidol (Haldol) 10 mg STAT STAT IM 02/21/20 15:43 02/21/20 15:46 DC 02/21/20 15:49 Haloperidol (Haldol) 10 mg STAT STAT IM 02/24/20 10:21 02/24/20 10:27 DC 02/24/20 10:38 Home Med (Med Rec Complete!) ASDIRECTED XX 02/15/20 15:45 02/15/20 15:40 DC Lorazepam (Ativan) 0.5 mg BID PO 02/16/20 21:00 02/17/20 22:36 DC 02/17/20 09:08 Lorazepam (Ativan) 1 mg STAT STAT PO 02/24/20 01:42 02/24/20 01:43 DC 02/24/20 01:45 Lorazepam (Ativan) 1 mg TID PO 02/17/20 21:00 02/20/20 11:45 DC 02/20/20 09:06 Lorazepam (Ativan) 2 mg STAT STAT IM 02/21/20 15:43 02/21/20 15:46 DC 02/21/20 15:48 Lorazepam (Ativan) 2 mg STAT STAT IM 02/24/20 10:21 02/24/20 10:27 DC 02/24/20 10:38 Lorazepam (Ativan) 2 mg STAT STAT PO 02/15/20 13:01 02/15/20 13:02 DC 02/15/20 13:10 Magnesium Hydroxide (Milk Of Magnesia) 30 ml DAILYPRN PRN PO CONSTIPATION 02/15/20 15:00 Olanzapine (ZyPREXA ZYDIS) 5 mg Q4HP PRN PO ANXIETY/AGITATION 02/15/20 21:00 02/16/20 10:14 DC 02/16/20 07:48 Olanzapine (ZyPREXA ZYDIS) 5 mg Q6HP PRN PO ANXIETY/AGITATION 02/24/20 01:45 02/24/20 10:02 Olanzapine (ZyPREXA ZYDIS) 5 mg Q6HP PRN PO ANXIETY/AGITATION 02/19/20 16:45 Cancel Olanzapine (ZyPREXA ZYDIS) 10 mg STAT STAT PO 02/24/20 01:42 02/24/20 01:43 DC 02/24/20 01:45 Trazodone HCl (Desyrel) 50 mg QHSP PRN PO INSOMNIA 02/15/20 15:00 02/23/20 20:51 Allergies Coded Allergies: No Known Allergies (Verified , 06/18/04) JOYCE LINARES MD Feb 24, 2020 16:08
[2020-02-24] MEDS: traZODone 50 MG TAB PO PRN (20:11)
[2020-02-25 06:03] VITALS: BP 125/78
[2020-02-25] MEDS: haloperidoL 5 MG TAB PO SCH ×2 (08:42→21:53)
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
[2020-02-25] MEDS ORDERED: diphenhydrAMINE 50MG/ML VIAL (J1200) IM STA (11:21)
[2020-02-25] MEDS ORDERED: HALOPERIDOL 5MG/ML VIAL (J1630 PER 1) IM STA (11:21)
[2020-02-25] MEDS ORDERED: LORazepam 2 MG/ML VIAL IM STA (11:21)
[2020-02-25 11:45] VITALS: BP 131/70
[2020-02-25 12:00] VITALS: BP 136/76
[2020-02-25 12:15] VITALS: BP 136/73
[2020-02-25 12:30] VITALS: BP 133/71
[2020-02-25 16:19] VITALS: BP 110/63
[2020-02-26] MEDS ORDERED: HALOPERIDOL 5MG/ML VIAL (J1630 PER 1) IM STA (02:05)
[2020-02-26] MEDS ORDERED: LORazepam 2 MG/ML VIAL IM STA (02:05)
[2020-02-26] MEDS ORDERED: diphenhydrAMINE 50MG/ML VIAL (J1200) IM STA (02:05)
[2020-02-26 06:25] VITALS: BP 128/80
[2020-02-26] MEDS: haloperidoL 5 MG TAB PO SCH (08:17)
[2020-02-26] MEDS: OLANZapine ORAL DISINTEGRATING TAB 5MG PO PRN ×2 (10:16→16:48)
--- NOTE | 2020-02-26 11:09 | MHIPNPDOC ---
[facility] Progress Note Progress Note DATE OF SERVICE: 02/26/20 Subjective HPI: Carmela presents today for evaluation. Patient remains fairly disorganized and bizarre. She continues to have episodes of running around and yelling for no reason. There's some concern still among the treatment team that this is behavioral and is done for attention. Nurses report that the patient is very specific about asking for Benzos and is very much interested in getting them. The patient reported that she wanted to leave and asked specifically how she might request a court hearing. Patient became mocking and fairly demeaning quickly. Patient refused to hand the paper she filled out to the nurse, refused to sign it, crumpled it up and threw it against the wall, attempted to kick it, and kicked the wall accidentally. The patient continued to be fairly attention-seeking. Objective Speech: Normal rate. Normal volume. Repeats the phrase help me. Thought Form: Disorganized, Tangential. Judgement: Poor. Insight: Poor. Assessment F29 Unspecified psychosis not due to a substance or known physiological condition Plan Continue Haldol at this time. However, it is unclear whether her presenting problem is behavioral and there is some concern that this could specifically be done for medications, or maybe the results of a personality disorder. Monitor patient to determine if there is unusual information about her behavior. did not seem to be aware of any prior unusual behavior. Vital Signs Vital Signs Date Time Temp Pulse Resp B/P (MAP) Pulse Ox O2 Delivery O2 Flow Rate FiO2 02/26/20 06:25 98.0 88 14 128/80 (96) Room Air 02/25/20 12:30 99 Current Medications Current Medications Medications (Trade) Dose Ordered Sig/Taurus Route PRN Reason Start Time Stop Time Status Last Admin Dose Admin Acetaminophen (Tylenol Tab) 650 mg Q6HP PRN PO HEADACHE or DISCOMFORT 02/15/20 15:00 02/24/20 10:06 Al Hydrox/Mg Hydrox/Simethicone (Mylanta) 30 ml Q4HP PRN PO HEARTBURN/INDIGESTION 02/15/20 15:00 Aripiprazole (AbiLIFY) 5 mg BID PO 02/19/20 21:00 Cancel Aripiprazole (AbiLIFY) 5 mg QHS PO 02/20/20 21:00 02/23/20 10:20 DC 02/22/20 21:07 Aripiprazole (AbiLIFY) 5 mg QHS PO 02/15/20 21:00 02/16/20 13:37 DC 02/15/20 20:49 Chlorpromazine HCl (Thorazine) 50 mg STAT STAT IM 02/21/20 11:15 02/21/20 11:17 DC 02/21/20 11:22 Chlorpromazine HCl (Thorazine) 100 mg STAT STAT IM 02/21/20 12:05 02/21/20 12:09 DC 02/21/20 12:12 Diphenhydramine HCl (Benadryl) 25 mg STAT STAT IM 02/21/20 11:15 02/21/20 11:17 DC 02/21/20 11:22 Diphenhydramine HCl (Benadryl) 50 mg STAT STAT IM 02/21/20 15:43 02/21/20 15:46 DC 02/21/20 15:49 Diphenhydramine HCl (Benadryl) 50 mg STAT STAT IM 02/24/20 10:21 02/24/20 10:27 DC 02/24/20 10:38 Diphenhydramine HCl (Benadryl) 50 mg STAT STAT IM 02/25/20 11:21 02/25/20 11:23 DC 02/25/20 11:25 Diphenhydramine HCl (Benadryl) 50 mg STAT STAT IM 02/26/20 02:05 02/26/20 02:07 DC 02/26/20 02:12 Haloperidol (Haldol) 5 mg BID PO 02/23/20 09:00 02/26/20 08:17 Haloperidol (Haldol) 10 mg Q6HP PRN PO ANXIETY/AGITATION 02/16/20 10:15 02/16/20 13:37 DC 02/16/20 10:26 Haloperidol (Haldol) 10 mg STAT STAT IM 02/21/20 15:43 02/21/20 15:46 DC 02/21/20 15:49 Haloperidol (Haldol) 10 mg STAT STAT IM 02/24/20 10:21 02/24/20 10:27 DC 02/24/20 10:38 Haloperidol (Haldol) 10 mg STAT STAT IM 02/25/20 11:21 11/15/20 11:23 DC 02/25/20 11:25 Haloperidol (Haldol) 10 mg STAT STAT IM 02/26/20 02:05 02/26/20 02:07 DC 02/26/20 02:11 Home Med (Med Rec Complete!) ASDIRECTED XX 02/15/20 15:45 02/15/20 15:40 DC Lorazepam (Ativan) 0.5 mg BID PO 02/16/20 21:00 02/17/20 22:36 DC 02/17/20 09:08 Lorazepam (Ativan) 1 mg STAT STAT PO 02/24/20 01:42 02/24/20 01:43 DC 02/24/20 01:45 Lorazepam (Ativan) 1 mg TID PO 02/17/20 21:00 02/20/20 11:45 DC 02/20/20 09:06 Lorazepam (Ativan) 2 mg STAT STAT IM 02/21/20 15:43 02/21/20 15:46 DC 02/21/20 15:48 Lorazepam (Ativan) 2 mg STAT STAT IM 02/24/20 10:21 02/24/20 10:27 DC 02/24/20 10:38 Lorazepam (Ativan) 2 mg STAT STAT IM 02/25/20 11:21 02/25/20 11:23 DC 02/25/20 11:25 Lorazepam (Ativan) 2 mg STAT STAT IM 02/26/20 02:05 02/26/20 02:07 DC 02/26/20 02:11 Lorazepam (Ativan) 2 mg STAT STAT PO 02/15/20 13:01 02/15/20 13:02 DC 02/15/20 13:10 Magnesium Hydroxide (Milk Of Magnesia) 30 ml DAILYPRN PRN PO CONSTIPATION 02/15/20 15:00 Olanzapine (ZyPREXA ZYDIS) 5 mg Q4HP PRN PO ANXIETY/AGITATION 02/15/20 21:00 02/16/20 10:14 DC 02/16/20 07:48 Olanzapine (ZyPREXA ZYDIS) 5 mg Q6HP PRN PO ANXIETY/AGITATION 02/24/20 01:45 02/26/20 10:16 Olanzapine (ZyPREXA ZYDIS) 5 mg Q6HP PRN PO ANXIETY/AGITATION 02/19/20 16:45 Cancel Olanzapine (ZyPREXA ZYDIS) 10 mg STAT STAT PO 02/24/20 01:42 02/24/20 01:43 DC 02/24/20 01:45 Trazodone HCl (Desyrel) 50 mg QHSP PRN PO INSOMNIA 02/15/20 15:00 02/24/20 20:11 Allergies Coded Allergies: No Known Allergies (Verified , 06/18/04) DAYSI GAGE DO Feb 26, 2020 11:09
[2020-02-26] MEDS: ACETAMINOPHEN TAB 650MG DOSE (2X325MG) PO PRN (16:48)
[2020-02-26 17:49] VITALS: BP 135/77
[2020-02-27] MEDS: ACETAMINOPHEN TAB 650MG DOSE (2X325MG) PO PRN ×2 (06:35→13:19)
[2020-02-27 06:45] VITALS: BP 140/69
[2020-02-27] MEDS ORDERED: BENZTROPINE MESYLATE 2MG/2ML VIAL IM ONE (09:15)
[2020-02-27] MEDS ORDERED: diphenhydrAMINE 50MG/ML VIAL (J1200) IM STA (11:26)
[2020-02-27] MEDS ORDERED: LORazepam 2 MG/ML VIAL IM STA (11:26)
[2020-02-27] MEDS: OLANZapine ORAL DISINTEGRATING TAB 5MG PO PRN ×2 (13:19→20:42)
[2020-02-27] MEDS: traZODone 50 MG TAB PO PRN (20:41)
[2020-02-28 06:31] VITALS: BP 110/56
[2020-02-28] MEDS: OLANZapine ORAL DISINTEGRATING TAB 5MG PO PRN ×2 (08:16→17:16)
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
[2020-02-28] MEDS: ACETAMINOPHEN TAB 650MG DOSE (2X325MG) PO PRN (11:58)
[2020-02-28] MEDS ORDERED: diphenhydrAMINE 50MG CAP PO ONE (14:30)
[2020-02-28 18:01] VITALS: BP 115/72
[2020-02-28] MEDS: traZODone 50 MG TAB PO PRN (20:31)
[2020-02-29 06:25] VITALS: BP 104/58
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
[2020-02-29] MEDS ORDERED: chlorproMAZINE INJ 50MG/2ML AMP (J3230) IM STA (10:48)
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
--- NOTE | 2020-02-29 12:54 | MHIPN ---
DATE: 02/28/20 VITAL SIGNS: Blood pressure 110/56, pulse 61, temperature 97.8. CHIEF COMPLAINT: She is anxious. SUBJECTIVE: I am assigned to her care today. Her doctor is still away. She feels anxious and says she was not sure how last night went though later indicates she slept several hours. Appetite is okay. MENTAL STATUS EXAM: She is neat, guarded. She is mildly anxious. The anxiety has escalated somewhat. She has a hard time maintaining boundaries but she responds to direction. Somewhat demonstrative. Shaking her arms, says she is drying her nails. Coherent. No psychomotor retardation. She does not appear sedated. Affect is somewhat labile as well. No evidence of any thoughts of harming herself or anyone else. At present no evidence of any psychosis. Cognition is grossly intact. Judgment and insight remain compromised. ASSESSMENT: * Unspecified psychotic disorder. * Would consider a concomitant anxiety disorder at the very least given her patterns. I am informed by staff that she was given Haldol this afternoon to help with anxiety as well as Benadryl, Haldol 10 mg, Benadryl 50 mg and improved quite considerably afterwards. PLAN: * Would continue with Haldol at 10 mg twice a day. I have the option of using olanzapine ___ Zyprexa as needed. * Continue observation. * Some of her anxiety tends to vary depending on the surrounding situation and is somewhat demonstrative but labile. Judgment and insight are not stable enough at present. * Further recommendations will be made depending on the clinical picture. She is to be seen by the assigned clinician tomorrow. JESÚS
[2020-02-29 16:23] VITALS: BP 133/73
[2020-02-29] MEDS: chlorproMAZINE 25 MG TABLET PO SCH (20:50)
[2020-02-29] MEDS: traZODone 50 MG TAB PO PRN (20:50)
[2020-03-01] MEDS: OLANZapine ORAL DISINTEGRATING TAB 5MG PO PRN (06:15)
[2020-03-01 06:26] VITALS: BP 122/79
[2020-03-01] MEDS: chlorproMAZINE 25 MG TABLET PO SCH ×3 (09:18→20:58)
--- NOTE | 2020-03-01 09:44 | MHIPNPDOC ---
[facility] Progress Note Progress Note DATE OF SERVICE: 03/01/20 Subjective Copy HPI: Carmela presents today for multiple episodes of agitation. She recently was coded when she came out of the restraints. She still remains somewhat distorted, yelling and screaming Help. but being highly attention-seeking as well. Little is gained from interview as she continually yells and screams. MEDICATIONS: She was actually much improved with the Thorazine 150. Objective Copy Affect: Dysphoric. Speech: Pressured speech. Disorganized speech. Yells Help me. . Hyperverbal at times and then nearly muted other times. Judgement: Poor judgement. Insight: Poor insight. Assessment Copy F29 Unspecified psychosis not due to a substance or known physiological condition Plan Copy Increase Thorazine to 150 mg TID as it appears to be helping her quite a bit. Vital Signs Vital Signs Date Time Temp Pulse Resp B/P (MAP) Pulse Ox O2 Delivery O2 Flow Rate FiO2 03/01/20 06:26 96.6 120 14 122/79 (93) Room Air 02/28/20 06:31 96 Current Medications Current Medications Medications (Trade) Dose Ordered Sig/Taurus Route PRN Reason Start Time Stop Time Status Last Admin Dose Admin Acetaminophen (Tylenol Tab) 650 mg Q6HP PRN PO HEADACHE or DISCOMFORT 02/15/20 15:00 02/28/20 11:58 Al Hydrox/Mg Hydrox/Simethicone (Mylanta) 30 ml Q4HP PRN PO HEARTBURN/INDIGESTION 02/15/20 15:00 Aripiprazole (AbiLIFY) 5 mg BID PO 02/19/20 21:00 Cancel Aripiprazole (AbiLIFY) 5 mg QHS PO 02/20/20 21:00 02/23/20 10:20 DC 02/22/20 21:07 Aripiprazole (AbiLIFY) 5 mg QHS PO 02/15/20 21:00 02/16/20 13:37 DC 02/15/20 20:49 Chlorpromazine HCl (Thorazine) 50 mg STAT STAT IM 02/21/20 11:15 02/21/20 11:17 DC 02/21/20 11:22 Chlorpromazine HCl (Thorazine) 100 mg BID PO 02/29/20 21:00 03/01/20 09:18 Chlorpromazine HCl (Thorazine) 100 mg STAT STAT IM 02/21/20 12:05 02/21/20 12:09 DC 02/21/20 12:12 Chlorpromazine HCl (Thorazine) 150 mg STAT STAT IM 02/29/20 10:48 02/29/20 10:53 DC 02/29/20 11:09 Diphenhydramine HCl (Benadryl) 25 mg STAT STAT IM 02/21/20 11:15 02/21/20 11:17 DC 02/21/20 11:22 Diphenhydramine HCl (Benadryl) 50 mg STAT STAT IM 02/21/20 15:43 02/21/20 15:46 DC 02/21/20 15:49 Diphenhydramine HCl (Benadryl) 50 mg STAT STAT IM 02/24/20 10:21 02/24/20 10:27 DC 02/24/20 10:38 Diphenhydramine HCl (Benadryl) 50 mg STAT STAT IM 02/25/20 11:21 02/25/20 11:23 DC 02/25/20 11:25 Diphenhydramine HCl (Benadryl) 50 mg STAT STAT IM 02/26/20 02:05 02/26/20 02:07 DC 02/26/20 02:12 Diphenhydramine HCl (Benadryl) 50 mg STAT STAT IM 02/27/20 11:26 02/27/20 11:28 DC 02/27/20 11:43 Haloperidol (Haldol) 5 mg BID PO 02/23/20 09:00 02/26/20 13:23 DC 02/26/20 08:17 Haloperidol (Haldol) 10 mg BID PO 02/26/20 21:00 02/29/20 11:04 DC 02/28/20 20:31 Haloperidol (Haldol) 10 mg Q6HP PRN PO ANXIETY/AGITATION 02/16/20 10:15 02/16/20 13:37 DC 02/16/20 10:26 Haloperidol (Haldol) 10 mg STAT STAT IM 02/21/20 15:43 02/21/20 15:46 DC 02/21/20 15:49 Haloperidol (Haldol) 10 mg STAT STAT IM 02/24/20 10:21 02/24/20 10:27 DC 02/24/20 10:38 Haloperidol (Haldol) 10 mg STAT STAT IM 02/25/20 11:21 02/25/20 11:23 DC 02/25/20 11:25 Haloperidol (Haldol) 10 mg STAT STAT IM 02/26/20 02:05 02/26/20 02:07 DC 02/26/20 02:11 Home Med (Med Rec Complete!) ASDIRECTED XX 02/15/20 15:45 02/15/20 15:40 DC Lorazepam (Ativan) 0.5 mg BID PO 02/16/20 21:00 02/17/20 22:36 DC 02/17/20 09:08 Lorazepam (Ativan) 1 mg STAT STAT PO 02/24/20 01:42 02/24/20 01:43 DC 02/24/20 01:45 Lorazepam (Ativan) 1 mg TID PO 02/17/20 21:00 02/20/20 11:45 DC 02/20/20 09:06 Lorazepam (Ativan) 2 mg STAT STAT IM 02/21/20 15:43 02/21/20 15:46 DC 02/21/20 15:48 Lorazepam (Ativan) 2 mg STAT STAT IM 02/24/20 10:21 02/24/20 10:27 DC 02/24/20 10:38 Lorazepam (Ativan) 2 mg STAT STAT IM 02/25/20 11:21 02/25/20 11:23 DC 02/25/20 11:25 Lorazepam (Ativan) 2 mg STAT STAT IM 02/26/20 02:05 02/26/20 02:07 DC 02/26/20 02:11 Lorazepam (Ativan) 2 mg STAT STAT IM 02/27/20 11:26 02/27/20 11:28 DC 02/27/20 11:43 Lorazepam (Ativan) 2 mg STAT STAT PO 02/15/20 13:01 02/15/20 13:02 DC 02/15/20 13:10 Magnesium Hydroxide (Milk Of Magnesia) 30 ml DAILYPRN PRN PO CONSTIPATION 02/15/20 15:00 02/27/20 18:06 Olanzapine (ZyPREXA ZYDIS) 5 mg Q4HP PRN PO ANXIETY/AGITATION 02/15/20 21:00 02/16/20 10:14 DC 02/16/20 07:48 Olanzapine (ZyPREXA ZYDIS) 5 mg Q6HP PRN PO ANXIETY/AGITATION 02/24/20 01:45 03/01/20 06:15 Olanzapine (ZyPREXA ZYDIS) 5 mg Q6HP PRN PO ANXIETY/AGITATION 02/19/20 16:45 Cancel Olanzapine (ZyPREXA ZYDIS) 10 mg STAT STAT PO 02/24/20 01:42 02/24/20 01:43 DC 02/24/20 01:45 Trazodone HCl (Desyrel) 50 mg QHSP PRN PO INSOMNIA 02/15/20 15:00 02/29/20 20:50 Allergies Coded Allergies: No Known Allergies (Verified , 06/18/04) DAYSI GAGE DO Mar 01, 2020 09:44
[2020-03-01] MEDS ORDERED: SODIUM CHLORIDE 0.9% NASAL GEL 15GM (AYR) PRN (10:15)
--- NOTE | 2020-03-01 12:04 | MHIR ---
General Date: Mar 01, 2020 Time Initiated: 12:03 Restraint Documentation Order/Evaluation FACE TO FACE: yes PHYSICIAN ASSESSMENT: slamming objects, aggressive, yelling REASON FOR RESTRAINT: Patient poses imminent danger of harming self or others: yelling throwing objects and slamming bed DE-ESCALATION INTERVENTIONS ATTEMPTED BEFORE USE OF RESTRAINTS: verbal deescalation, removal from milieu [MECHANICAL AND/OR CHEMICAL] RESTRAINTS USED: Thorazine 150mg IM once LENGTH OF TIME ORDERED IN RESTRAINTS: 240 minutes. WHEN TO DISCONTINUE RESTRAINTS: when in behavioral control Post evaluation of restraint due in 24 hours. DAYSI GAGE DO Mar 01, 2020 12:04
[2020-03-01] MEDS ORDERED: chlorproMAZINE INJ 50MG/2ML AMP (J3230) As Ordered ONE (12:06)
[2020-03-01 12:30] VITALS: BP 136/77
[2020-03-01] MEDS ORDERED: chlorproMAZINE INJ 50MG/2ML AMP (J3230) IM STA (12:39)
[2020-03-01 13:00] VITALS: BP 122/79
[2020-03-01 13:15] VITALS: BP 122/79
[2020-03-01 13:30] VITALS: BP 136/77
[2020-03-02 06:26] VITALS: BP 121/61
[2020-03-02] MEDS: chlorproMAZINE 25 MG TABLET PO SCH ×3 (08:20→20:34)
[2020-03-02] MEDS: OLANZapine ORAL DISINTEGRATING TAB 5MG PO PRN ×2 (08:21→18:35)
[2020-03-02] MEDS: ACETAMINOPHEN TAB 650MG DOSE (2X325MG) PO PRN (11:52)
[2020-03-02 16:00] VITALS: BP 132/81
[2020-03-03 06:44] VITALS: BP 109/65
[2020-03-03] MEDS: chlorproMAZINE 25 MG TABLET PO SCH ×3 (08:29→22:20)
[2020-03-03] MEDS: OLANZapine ORAL DISINTEGRATING TAB 5MG PO PRN ×2 (10:26→18:27)
[2020-03-03 18:39] VITALS: BP 129/79
[2020-03-04 06:50] VITALS: BP 144/72
[2020-03-04] MEDS: chlorproMAZINE 25 MG TABLET PO SCH ×3 (09:05→22:02)
--- NOTE | 2020-03-04 09:39 | MHIPNPDOC ---
[facility] Progress Note Progress Note DATE OF SERVICE: 03/04/20 HISTORY: The patient is met with today, she reports that she is doing better, nursing staff have generally endorsed that she appears to be doing quite well, she did have a moment this morning where she had thrown a phone against the wall, but was able to be redirected. She was able to have a more lucid conversation with me and discussed her wants for discharge, but reports that the Thorazine has caused her some minor dry mouth. She otherwise appears to be making some progress, she reports that she definitely can become confused at times but appears to making progress. VITAL SIGNS: See below. NEW TEST RESULTS: None today. CURRENT MEDICATIONS: See below. MENTAL STATUS EXAMINATION: General: Fair hygiene Speech: Improved Thought processes: More linear Thought content: [Future orientated] Abstract reasoning, and computation: Improved Description of associations: Improved Description of abnormal or psychotic thoughts: No endorsement of bizarre ideation, denies SI Judgment: Improved Insight: Improved Orientation: Improved Recent and remote memory: [Intact] Attention span and concentration: [Intact] Fund of knowledge: [Adequate] Mood: "Better" Affect: More reactive DIAGNOSES: 1. Unspecified psychotic disorder. 2. . 3. . ASSESSMENT: The patient appears to be making some solid improvement on Thorazine, some minor dry mouth is expected, it's more likely she has a psychotic disorder than a behavioral issue she appears to resolved quite well with a higher dose of Thorazine. MANAGEMENT PLAN: We'll continue Thorazine 100 mg 3 times a day, we'll begin looking at discharge planning. TIME SPENT: 15 minutes. Vital Signs Vital Signs Date Time Temp Pulse Resp B/P (MAP) Pulse Ox O2 Delivery O2 Flow Rate FiO2 03/04/20 06:50 98.2 101 20 144/72 (96) 97 Room Air Current Medications Current Medications Medications (Trade) Dose Ordered Sig/Taurus Route PRN Reason Start Time Stop Time Status Last Admin Dose Admin Acetaminophen (Tylenol Tab) 650 mg Q6HP PRN PO HEADACHE or DISCOMFORT 02/15/20 15:00 03/02/20 11:52 Al Hydrox/Mg Hydrox/Simethicone (Mylanta) 30 ml Q4HP PRN PO HEARTBURN/INDIGESTION 02/15/20 15:00 03/02/20 20:34 Aripiprazole (AbiLIFY) 5 mg BID PO 02/19/20 21:00 Cancel Aripiprazole (AbiLIFY) 5 mg QHS PO 02/20/20 21:00 02/23/20 10:20 DC 02/22/20 21:07 Aripiprazole (AbiLIFY) 5 mg QHS PO 02/15/20 21:00 02/16/20 13:37 DC 02/15/20 20:49 Chlorpromazine HCl (Thorazine) 50 mg STAT STAT IM 02/21/20 11:15 02/21/20 11:17 DC 02/21/20 11:22 Chlorpromazine HCl (Thorazine) 100 mg BID PO 02/29/20 21:00 03/01/20 13:30 DC 03/01/20 09:18 Chlorpromazine HCl (Thorazine) 100 mg STAT STAT IM 02/21/20 12:05 02/21/20 12:09 DC 02/21/20 12:12 Chlorpromazine HCl (Thorazine) 100 mg TID PO 03/01/20 16:00 03/04/20 09:05 Chlorpromazine HCl (Thorazine) 150 mg STAT STAT IM 02/29/20 10:48 02/29/20 10:53 DC 02/29/20 11:09 Chlorpromazine HCl (Thorazine) 150 mg STAT STAT IM 03/01/20 12:39 03/01/20 12:42 DC 03/01/20 12:46 Diphenhydramine HCl (Benadryl) 25 mg STAT STAT IM 02/21/20 11:15 02/21/20 11:17 DC 02/21/20 11:22 Diphenhydramine HCl (Benadryl) 50 mg STAT STAT IM 02/21/20 15:43 02/21/20 15:46 DC 02/21/20 15:49 Diphenhydramine HCl (Benadryl) 50 mg STAT STAT IM 02/24/20 10:21 02/24/20 10:27 DC 02/24/20 10:38 Diphenhydramine HCl (Benadryl) 50 mg STAT STAT IM 02/25/20 11:21 02/25/20 11:23 DC 02/25/20 11:25 Diphenhydramine HCl (Benadryl) 50 mg STAT STAT IM 02/26/20 02:05 02/26/20 02:07 DC 02/26/20 02:12 Diphenhydramine HCl (Benadryl) 50 mg STAT STAT IM 02/27/20 11:26 02/27/20 11:28 DC 02/27/20 11:43 Haloperidol (Haldol) 5 mg BID PO 02/23/20 09:00 02/26/20 13:23 DC 02/26/20 08:17 Haloperidol (Haldol) 10 mg BID PO 02/26/20 21:00 02/29/20 11:04 DC 02/28/20 20:31 Haloperidol (Haldol) 10 mg Q6HP PRN PO ANXIETY/AGITATION 02/16/20 10:15 02/16/20 13:37 DC 02/16/20 10:26 Haloperidol (Haldol) 10 mg STAT STAT IM 02/21/20 15:43 02/21/20 15:46 DC 02/21/20 15:49 Haloperidol (Haldol) 10 mg STAT STAT IM 02/24/20 10:21 02/24/20 10:27 DC 02/24/20 10:38 Haloperidol (Haldol) 10 mg STAT STAT IM 02/25/20 11:21 02/25/20 11:23 DC 02/25/20 11:25 Haloperidol (Haldol) 10 mg STAT STAT IM 02/26/20 02:05 02/26/20 02:07 DC 02/26/20 02:11 Home Med (Med Rec Complete!) ASDIRECTED XX 02/15/20 15:45 02/15/20 15:40 DC Lorazepam (Ativan) 0.5 mg BID PO 02/16/20 21:00 02/17/20 22:36 DC 02/17/20 09:08 Lorazepam (Ativan) 1 mg STAT STAT PO 02/24/20 01:42 02/24/20 01:43 DC 02/24/20 01:45 Lorazepam (Ativan) 1 mg TID PO 02/17/20 21:00 02/20/20 11:45 DC 02/20/20 09:06 Lorazepam (Ativan) 2 mg STAT STAT IM 02/21/20 15:43 02/21/20 15:46 DC 02/21/20 15:48 Lorazepam (Ativan) 2 mg STAT STAT IM 02/24/20 10:21 02/24/20 10:27 DC 02/24/20 10:38 Lorazepam (Ativan) 2 mg STAT STAT IM 02/25/20 11:21 02/25/20 11:23 DC 02/25/20 11:25 Lorazepam (Ativan) 2 mg STAT STAT IM 02/26/20 02:05 02/26/20 02:07 DC 02/26/20 02:11 Lorazepam (Ativan) 2 mg STAT STAT IM 02/27/20 11:26 02/27/20 11:28 DC 02/27/20 11:43 Lorazepam (Ativan) 2 mg STAT STAT PO 02/15/20 13:01 02/15/20 13:02 DC 02/15/20 13:10 Magnesium Hydroxide (Milk Of Magnesia) 30 ml DAILYPRN PRN PO CONSTIPATION 02/15/20 15:00 02/27/20 18:06 Olanzapine (ZyPREXA ZYDIS) 5 mg Q4HP PRN PO ANXIETY/AGITATION 02/15/20 21:00 02/16/20 10:14 DC 02/16/20 07:48 Olanzapine (ZyPREXA ZYDIS) 5 mg Q6HP PRN PO ANXIETY/AGITATION 02/24/20 01:45 03/03/20 18:27 Olanzapine (ZyPREXA ZYDIS) 5 mg Q6HP PRN PO ANXIETY/AGITATION 02/19/20 16:45 Cancel Olanzapine (ZyPREXA ZYDIS) 10 mg STAT STAT PO 02/24/20 01:42 02/24/20 01:43 DC 02/24/20 01:45 Sodium Chloride ([place] Saline Nasal Gel) APPLY SMALL CHRISTIAN... BID PRN NA NASAL DRYNESS 03/01/20 10:15 03/01/20 14:51 Trazodone HCl (Desyrel) 50 mg QHSP PRN PO INSOMNIA 02/15/20 15:00 02/29/20 20:50 Allergies Coded Allergies: No Known Allergies (Verified , 06/18/04) DAYSI GAGE DO Mar 04, 2020 09:39
[2020-03-04] MEDS: OLANZapine ORAL DISINTEGRATING TAB 5MG PO PRN (10:25)
[2020-03-04 16:44] VITALS: BP 110/80
[2020-03-04] MEDS: traZODone 50 MG TAB PO PRN (22:02)
[2020-03-05 06:25] VITALS: BP 112/58
[2020-03-05] MEDS: chlorproMAZINE 25 MG TABLET PO SCH ×3 (08:05→22:07)
--- NOTE | 2020-03-05 09:51 | MHIPNPDOC ---
[facility] Progress Note Progress Note DATE OF SERVICE: 03/05/20 HISTORY: the patient is met with today, she reports that she is doing much better on the Thorazine, she reports she is feeling much improved and that she is excited about the potential being discharged. She has been particularly good today conversing coherently and articulately today. She is had no major behavioral problems tolerating the medications well. VITAL SIGNS: See below. NEW TEST RESULTS: none. CURRENT MEDICATIONS: See below. MENTAL STATUS EXAMINATION: General: [Well dressed with good hygiene] Speech: [Spontaneous and fluid] Thought processes: [Linear and logical] Thought content: [Future orientated] Abstract reasoning, and computation: [Intact] Description of associations: [Intact] Description of abnormal or psychotic thoughts:[Denies any suicidal or homicidal ideation. Denies any auditory or visual hallucinations. Does not appear to be responding to internal stimuli. Does not appear to be endorsing any bizarre or paranoid ideation.] Judgment: [fair] Insight: [fair] Orientation: [Alert and orientated 3] Recent and remote memory: [Intact] Attention span and concentration: improved, still some thought blocking present Fund of knowledge: [Adequate] Mood: ["okay"] Affect: much improved, more euthymic DIAGNOSES: 1., Unspecified psychotic disorder. 2. . 3. . ASSESSMENT: patient making wonderful progress, will hopefully have her more stable and potentially able to be discharged back to home, will undertake more advanced safety planning in order to make sure that her chances of returning are lower as her compliance could be an issue with oral medications. MANAGEMENT PLAN: continue Thorazine 100 mg TID. TIME SPENT: 15 minutes. Vital Signs Vital Signs Date Time Temp Pulse Resp B/P (MAP) Pulse Ox O2 Delivery O2 Flow Rate FiO2 03/05/20 06:25 97.2 64 16 112/58 (76) 98 03/04/20 06:50 Room Air Current Medications Current Medications Medications (Trade) Dose Ordered Sig/Taurus Route PRN Reason Start Time Stop Time Status Last Admin Dose Admin Acetaminophen (Tylenol Tab) 650 mg Q6HP PRN PO HEADACHE or DISCOMFORT 02/15/20 15:00 03/02/20 11:52 Al Hydrox/Mg Hydrox/Simethicone (Mylanta) 30 ml Q4HP PRN PO HEARTBURN/INDIGESTION 02/15/20 15:00 03/02/20 20:34 Aripiprazole (AbiLIFY) 5 mg BID PO 02/19/20 21:00 Cancel Aripiprazole (AbiLIFY) 5 mg QHS PO 02/20/20 21:00 02/23/20 10:20 DC 02/22/20 21:07 Aripiprazole (AbiLIFY) 5 mg QHS PO 02/15/20 21:00 02/16/20 13:37 DC 02/15/20 20:49 Chlorpromazine HCl (Thorazine) 50 mg STAT STAT IM 02/21/20 11:15 02/21/20 11:17 DC 02/21/20 11:22 Chlorpromazine HCl (Thorazine) 100 mg BID PO 02/29/20 21:00 03/01/20 13:30 DC 03/01/20 09:18 Chlorpromazine HCl (Thorazine) 100 mg STAT STAT IM 02/21/20 12:05 02/21/20 12:09 DC 02/21/20 12:12 Chlorpromazine HCl (Thorazine) 100 mg TID PO 03/01/20 16:00 03/05/20 08:05 Chlorpromazine HCl (Thorazine) 150 mg STAT STAT IM 02/29/20 10:48 02/29/20 10:53 DC 02/29/20 11:09 Chlorpromazine HCl (Thorazine) 150 mg STAT STAT IM 03/01/20 12:39 03/01/20 12:42 DC 03/01/20 12:46 Diphenhydramine HCl (Benadryl) 25 mg STAT STAT IM 02/21/20 11:15 02/21/20 11:17 DC 02/21/20 11:22 Diphenhydramine HCl (Benadryl) 50 mg STAT STAT IM 02/21/20 15:43 02/21/20 15:46 DC 02/21/20 15:49 Diphenhydramine HCl (Benadryl) 50 mg STAT STAT IM 02/24/20 10:21 02/24/20 10:27 DC 02/24/20 10:38 Diphenhydramine HCl (Benadryl) 50 mg STAT STAT IM 02/25/20 11:21 02/25/20 11:23 DC 02/25/20 11:25 Diphenhydramine HCl (Benadryl) 50 mg STAT STAT IM 02/26/20 02:05 02/26/20 02:07 DC 02/26/20 02:12 Diphenhydramine HCl (Benadryl) 50 mg STAT STAT IM 02/27/20 11:26 02/27/20 11:28 DC 02/27/20 11:43 Haloperidol (Haldol) 5 mg BID PO 02/23/20 09:00 02/26/20 13:23 DC 02/26/20 08:17 Haloperidol (Haldol) 10 mg BID PO 02/26/20 21:00 02/29/20 11:04 DC 02/28/20 20:31 Haloperidol (Haldol) 10 mg Q6HP PRN PO ANXIETY/AGITATION 02/16/20 10:15 02/16/20 13:37 DC 02/16/20 10:26 Haloperidol (Haldol) 10 mg STAT STAT IM 02/21/20 15:43 02/21/20 15:46 DC 02/21/20 15:49 Haloperidol (Haldol) 10 mg STAT STAT IM 02/24/20 10:21 02/24/20 10:27 DC 02/24/20 10:38 Haloperidol (Haldol) 10 mg STAT STAT IM 02/25/20 11:21 02/25/20 11:23 DC 02/25/20 11:25 Haloperidol (Haldol) 10 mg STAT STAT IM 02/26/20 02:05 02/26/20 02:07 DC 02/26/20 02:11 Home Med (Med Rec Complete!) ASDIRECTED XX 02/15/20 15:45 02/15/20 15:40 DC Lorazepam (Ativan) 0.5 mg BID PO 02/16/20 21:00 02/17/20 22:36 DC 02/17/20 09:08 Lorazepam (Ativan) 1 mg STAT STAT PO 02/24/20 01:42 02/24/20 01:43 DC 02/24/20 01:45 Lorazepam (Ativan) 1 mg TID PO 02/17/20 21:00 02/20/20 11:45 DC 02/20/20 09:06 Lorazepam (Ativan) 2 mg STAT STAT IM 02/21/20 15:43 02/21/20 15:46 DC 02/21/20 15:48 Lorazepam (Ativan) 2 mg STAT STAT IM 02/24/20 10:21 02/24/20 10:27 DC 02/24/20 10:38 Lorazepam (Ativan) 2 mg STAT STAT IM 02/25/20 11:21 02/25/20 11:23 DC 02/25/20 11:25 Lorazepam (Ativan) 2 mg STAT STAT IM 02/26/20 02:05 02/26/20 02:07 DC 02/26/20 02:11 Lorazepam (Ativan) 2 mg STAT STAT IM 02/27/20 11:26 02/27/20 11:28 DC 02/27/20 11:43 Lorazepam (Ativan) 2 mg STAT STAT PO 02/15/20 13:01 02/15/20 13:02 DC 02/15/20 13:10 Magnesium Hydroxide (Milk Of Magnesia) 30 ml DAILYPRN PRN PO CONSTIPATION 02/15/20 15:00 02/27/20 18:06 Olanzapine (ZyPREXA ZYDIS) 5 mg Q4HP PRN PO ANXIETY/AGITATION 02/15/20 21:00 02/16/20 10:14 DC 02/16/20 07:48 Olanzapine (ZyPREXA ZYDIS) 5 mg Q6HP PRN PO ANXIETY/AGITATION 02/24/20 01:45 03/04/20 10:25 Olanzapine (ZyPREXA ZYDIS) 5 mg Q6HP PRN PO ANXIETY/AGITATION 02/19/20 16:45 Cancel Olanzapine (ZyPREXA ZYDIS) 10 mg STAT STAT PO 02/24/20 01:42 02/24/20 01:43 DC 02/24/20 01:45 Sodium Chloride ([place] Saline Nasal Gel) APPLY SMALL CHRISTIAN... BID PRN NA NASAL DRYNESS 03/01/20 10:15 03/01/20 14:51 Trazodone HCl (Desyrel) 50 mg QHSP PRN PO INSOMNIA 02/15/20 15:00 03/04/20 22:02 Allergies Coded Allergies: No Known Allergies (Verified , 06/18/04) DAYSI GAGE 24, 2020 09:51
[2020-03-05] MEDS: OLANZapine ORAL DISINTEGRATING TAB 5MG PO PRN (12:05)
[2020-03-05 16:07] VITALS: BP 126/70
[2020-03-06 06:22] VITALS: BP 124/61
[2020-03-06] MEDS: chlorproMAZINE 25 MG TABLET PO SCH (08:14)
--- NOTE | 2020-03-06 10:44 | MHDSPDOC ---
[facility] Discharge Summary Discharge Summary DATE OF ADMISSION: Feb 15, 2020 at 15:00 DATE OF DISCHARGE: Mar 06, 2020 at 14:05 DISCHARGE DIAGNOSES: Unspecified psychotic disorder. CONSULTANTS INVOLVED:[ None (basic hospitalist screening)] REASON FOR ADMISSION & TREATMENT AND PROGRESS ON THE UNIT : The patient was admitted to the inpatient mental health unit with a resurgence of for psychotic symptoms, she was initially tried on the Abilify, which had little effect. She was in tried on Zyprexa and and subsequently Haldol with no effects,. She did was bizarre and disorganized generally. She was then tried on Thorazine, as this was noted to be helpful during multiple restraint episodes. She was increased to a total of 100 TID with a positive effects. 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 However, she made good progress and return to close to a normal mental status exam doing much better her anxiety was still somewhat present but much improved. She was engaging groups had coherent and articulate discussions by the end. DISCHARGE ASSESSMENT[improved] Legal status considerations: The patient at the time of discharge did not meet criteria for involuntary admission/extension due to having a improved mental status exam, improved insight into the situation, They are engaged in the discharge process, as well as being friendly and amenable in behavioral control and havent been engaging in any observed concerning behavior or ideation recently. They decline voluntary extension/admission at this time and must be discharged in good broderick, as Im unable to make a case for holding the patient against their will. They may have historical risk factors of admissions and other interactions with psychiatry however, those are not modifiable from a clinical perspective. The patient will need to be discharged in good broderick. MENTAL STATUS EXAMINATION ON DISCHARGE: General: [Well dressed with good hygiene] Speech: [Spontaneous and fluid] Thought processes: [Linear and logical] Thought content: [Future orientated] Abstract reasoning, and computation: [Intact] Description of associations: [Intact] Description of abnormal or psychotic thoughts:[Denies any suicidal or homicidal ideation. Denies any auditory or visual hallucinations. Does not appear to be responding to internal stimuli. Does not appear to be endorsing any bizarre or paranoid ideation.] Judgment: [fair] Insight: [fair] Orientation: [Alert and orientated 3] Recent and remote memory: [Intact] Attention span and concentration: [Intact] Fund of knowledge: [Adequate] Mood: ["okay"] Affect: appropriately reactive PLAN/FOLLOWUP ARRANGEMENTS: Follow up appointments made (PCP and MH in 5 days of D/C date) and safety plan completed. Safety Planning aspects completed prior to discharge [Medication supplies limited to 7 days with 4 refills to prevent accumulation to OD] [Family contact completed, educated on safe practices, instructed on removal and mitigation of dangerous means] [RN reviewed crisis hotline information and other aspects to empower patient to access care in interim before next appointment.] The amount of time spent in the coordination of care for this patient was approximately 30 minutes. Vital Signs/I&Os Vital Signs Date Time Temp Pulse Resp B/P (MAP) Pulse Ox O2 Delivery O2 Flow Rate FiO2 03/06/20 06:22 98.0 73 14 124/61 (82) 98 Room Air Medications Scheduled Amlodipine Besylate (Amlodipine Besylate) 2.5 Mg Tablet, 2.5 MG PO BID, (Reported) PATIENT STATES THIS IS MAKING HER JITTERY Chlorpromazine HCl (Chlorpromazine HCl) 100 Mg Tablet, 100 MG PO TID for thought for 7 Days, #21 Allergies Coded Allergies: No Known Allergies (Verified , 06/18/04) DAYSI GAGE DO Mar 06, 2020 10:44
[2020-03-06] MEDS: OLANZapine ORAL DISINTEGRATING TAB 5MG PO PRN (12:31)
[2020-03-06] MEDS ORDERED: CHLO100T22 PO (13:04)
--- NOTE | 2020-03-06 19:26 | ECGEPIP ---
[facility] Test Date: 2020-03-05 Pat Name: PADDY SELF Department: Room: [place] [address] Gender: Female Manager Sap: LORRIE : 1990 Requested By: DAYSI GAGE Order Number: [id number] Reading MD: Jose Guadalupe Fried Measurements Intervals [place] Rate: 78 P: 43 NM: 171 QRS: 79 QRSD: 101 T: 43 QT: 378 QTc: 431 Interpretive Statements SINUS RHYTHM WITH SINUS ARRHYTHMIA NO CHANGE COMPARED TO 02/01/20 Electronically Signed on 03-06-2020 19:26:08 EST by Jose Guadalupe Fried
== END 2020-03-06 14:05 | disposition home or self-care (01) | DRG 751 ==
LOC: M ED 10:55 → M ED INP 15:00 → M PSY 16:21
PROVIDERS: ADMIT Psychiatry & Neurology Addiction Medicine; ATTEND Psychiatry & Neurology Addiction Medicine
DX: F29 Unspecified psychosis not due to a substance or known physiological condition (principal); I10 Essential (primary) hypertension; Z79.899 Other long term (current) drug therapy; Z87.891 Personal history of nicotine dependence; Z78.1 Physical restraint status

== ENCOUNTER 2022-03-08 01:01 | Inpatient (IN) | payer MEDICAID, OTHER ==
[~2022-03-08] VITALS: Ht 167.6 cm; Wt 100.3 kg
[~2022-03-08 01:01] MED LIST changes: +AMLO2.5T3 PO; +BENZ0.5T23 PO; +CHLO100T22 PO
[2022-03-08 01:40] LABS: HEMATOCRIT 43.1 % (36.0-47.0); HEMOGLOBIN 14.7 g/dl (12.0-15.5); MEAN CORPUSCULAR HEMOGLOBIN 30.8 pg (27.0-33.0); MEAN CORPUSCULAR HGB CONC 34.1 g/dl (32.0-36.5); MEAN CORPUSCULAR VOLUME 90.4 fl (80.0-96.0); PLATELET COUNT, AUTOMATED 407 10^3/uL (150-450); RED BLOOD COUNT 4.77 10^6/uL (4.00-5.40); WHITE BLOOD COUNT 11.6 10^3/uL (4.0-10.0)
[2022-03-08 02:02] LABS: HCG, SERUM QUALITATIVE NEGATIVE (NEGATIVE)
[2022-03-08 02:12] LABS: ACETAMINOPHEN LEVEL < 2.0 UG/ML (10.0-20.0); ALBUMIN 4.7 G/DL (3.2-5.2); ALKALINE PHOSPHATASE 92 U/L (46-116); ALT/SGPT 34 U/L (7.0-40); AST/SGOT 31 U/L (<34); BILIRUBIN,DIRECT 0.4 MG/DL (<0.4); BILIRUBIN,TOTAL 1.2 MG/DL (0.3-1.2); BLOOD UREA NITROGEN 9 MG/DL (9-23); CALCIUM LEVEL 9.9 MG/DL (8.5-10.1); CARBON DIOXIDE LEVEL 20 MMOL/L (20-31); CHLORIDE LEVEL 107 MMOL/L (98-107); ETHYL ALCOHOL (ETHANOL) 0.003 % (0.000-0.010); GLOMERULAR FILTRATION RATE > 60.0 (>60); GLUCOSE, FASTING 120 MG/DL (60-100); POTASSIUM SERUM 3.1 MMOL/L (3.5-5.1); SALICYLATE LEVEL < 3.0 MG/DL (<30); SODIUM LEVEL 142 MMOL/L (136-145); THYROID STIMULATING HORMONE 0.845 uIU/ML (0.55-4.78); TOTAL PROTEIN 7.3 G/DL (5.7-8.2)
[2022-03-08 02:18] LABS: RSV AMPLIFICATION NEGATIVE (NEGATIVE)
[2022-03-08] MEDS ORDERED: diphenhydrAMINE 50MG/ML VIAL IM ONE (02:20)
[2022-03-08] MEDS ORDERED: MIDAZOLAM INJ 2MG/2ML VIAL (J2250 PER 1MG) IM ONE (02:20)
[2022-03-08] MEDS ORDERED: HALOPERIDOL 5MG/ML VIAL (J1630 PER 1) IM ONE (02:20)
[2022-03-08] MEDS ORDERED: POTASSIUM CHLORIDE 10MEQ SR TABLET PO ONE (09:00)
[2022-03-08] MEDS ORDERED: HOME MED LIST COMPLETE! XX SCH (09:10)
[2022-03-08 10:39] LABS: AMPHETAMINES LEVEL URINE NEGATIVE (NEGATIVE); BARBITURATES URINE NEGATIVE (NEGATIVE); BENZODIAZEPINES URINE POSITIVE (NEGATIVE); COCAINE METABOLITE URINE NEGATIVE (NEGATIVE); METHADONE URINE NEGATIVE (NEGATIVE); OPIATES URINE NEGATIVE (NEGATIVE); PHENCYCLIDINE URINE NEGATIVE (NEGATIVE)
[2022-03-08 10:46] LABS: CANNABINOIDS URINE POSITIVE (NEGATIVE)
[2022-03-08] MEDS ORDERED: LORazepam 2 MG TAB PO STA (13:23)
[2022-03-09] MEDS ORDERED: LORazepam 2 MG/ML VIAL IV STA (02:03)
[2022-03-09] MEDS ORDERED: LORazepam 2 MG/ML VIAL IM STA ×2 (02:06→19:42)
[2022-03-09] MEDS ORDERED: LORazepam 1 MG TAB PO STA ×2 (08:12→15:10)
[2022-03-09] MEDS ORDERED: OLANZapine INTRAMUSCULAR 10MG VIAL IM ONE (19:45)
[2022-03-09] MEDS ORDERED: MAALOX 30 ML SUSP *UDC PO PRN (21:55)
[2022-03-09] MEDS ORDERED: MOM 30ML SUSPENSION UDC PO PRN (21:55)
[2022-03-09 23:55] VITALS: BP 128/69
[2022-03-10] MEDS: traZODone 50 MG TAB PO PRN ×2 (00:01→20:34)
[2022-03-10] MEDS: PALIPERIDONE 3MG ER TAB (INVEGA) PO SCH ×2 (11:30→20:34)
[2022-03-10] MEDS: OLANZapine ORAL DISINTEGRATING TAB 5MG PO PRN ×2 (11:31→20:34)
[2022-03-10 14:23] LABS: HEPATITIS B SURFACE ANTIBODY NEGATIVE (POSITIVE)
[2022-03-10 14:35] LABS: HEPATITIS B SURFACE ANTIGEN NEGATIVE (NEGATIVE)
[2022-03-10 14:48] LABS: HIV 1&2 SCREEN CENTAUR NEGATIVE (NEGATIVE)
[2022-03-10 18:45] VITALS: BP 148/88
[2022-03-10] MEDS: NICOTINE POLACRILEX 2 MG GUM PO PRN (20:34)
[2022-03-11 06:09] VITALS: BP 133/89
[2022-03-11] MEDS: PALIPERIDONE 3MG ER TAB (INVEGA) PO SCH ×2 (08:24→20:08)
[2022-03-11] MEDS: OLANZapine ORAL DISINTEGRATING TAB 5MG PO PRN ×2 (12:09→20:08)
[2022-03-11] MEDS: ACETAMINOPHEN TAB 650MG DOSE (2X325MG) PO PRN ×2 (12:28→20:09)
[2022-03-11] MEDS: NICOTINE POLACRILEX 2 MG GUM PO PRN (13:02)
[2022-03-11] MEDS: hydrOXYzine 50 MG TAB PO PRN (20:08)
[2022-03-11] MEDS: traZODone 100 MG TAB PO PRN (20:08)
[2022-03-12 06:36] VITALS: BP 150/64
[2022-03-12] MEDS: PALIPERIDONE 3MG ER TAB (INVEGA) PO SCH ×2 (09:03→19:47)
[2022-03-12] MEDS: OLANZapine ORAL DISINTEGRATING TAB 5MG PO PRN ×2 (12:20→19:47)
[2022-03-12] MEDS: hydrOXYzine 50 MG TAB PO PRN (17:12)
[2022-03-12 18:11] VITALS: BP 138/80
[2022-03-12] MEDS: traZODone 100 MG TAB PO PRN (20:57)
[2022-03-13] MEDS: ACETAMINOPHEN TAB 650MG DOSE (2X325MG) PO PRN (05:10)
[2022-03-13] MEDS: hydrOXYzine 50 MG TAB PO PRN ×2 (05:10→15:16)
[2022-03-13 05:36] VITALS: BP 128/78
[2022-03-13] MEDS: PALIPERIDONE 3MG ER TAB (INVEGA) PO SCH ×2 (08:24→20:12)
[2022-03-13] MEDS ORDERED: LORazepam 1 MG TAB PO ONE (09:50)
[2022-03-13] MEDS: DIVALPROEX 250MG *ER* TAB PO SCH ×2 (10:28→20:12)
[2022-03-13 12:07] LABS: ALBUMIN 4.5 G/DL (3.2-5.2); ALKALINE PHOSPHATASE 89 U/L (46-116); ALT/SGPT 32 U/L (7.0-40); AST/SGOT 19 U/L (<34); BILIRUBIN,TOTAL 0.5 MG/DL (0.3-1.2); BLOOD UREA NITROGEN 9 MG/DL (9-23); CALCIUM LEVEL 10.1 MG/DL (8.5-10.1); CARBON DIOXIDE LEVEL 26 MMOL/L (20-31); CHLORIDE LEVEL 102 MMOL/L (98-107); CREATININE FOR GFR 0.75 MG/DL (0.55-1.30); GLOMERULAR FILTRATION RATE > 60.0 (>60); GLUCOSE, FASTING 91 MG/DL (60-100); POTASSIUM SERUM 4.4 MMOL/L (3.5-5.1); SODIUM LEVEL 137 MMOL/L (136-145); TOTAL PROTEIN 7.1 G/DL (5.7-8.2)
[2022-03-13 18:05] VITALS: BP 130/94
[2022-03-13] MEDS: OLANZapine ORAL DISINTEGRATING TAB 5MG PO PRN (18:27)
[2022-03-13] MEDS: traZODone 100 MG TAB PO PRN (20:12)
[2022-03-14] MEDS: hydrOXYzine 50 MG TAB PO PRN ×3 (00:01→20:03)
[2022-03-14] MEDS ORDERED: OLANZapine ORAL DISINTEGRATING TAB 5MG PO ONE (01:00)
[2022-03-14] MEDS: DIVALPROEX 250MG *ER* TAB PO SCH ×2 (08:14→20:04)
[2022-03-14] MEDS: PALIPERIDONE 3MG ER TAB (INVEGA) PO SCH ×2 (08:14→20:03)
[2022-03-14] MEDS: OLANZapine ORAL DISINTEGRATING TAB 5MG PO PRN (11:57)
[2022-03-14] MEDS ORDERED: BENZTROPINE 2 MG TAB PO ONE (12:30)
[2022-03-14 18:07] VITALS: BP 120/70
[2022-03-14] MEDS: traZODone 100 MG TAB PO PRN (20:03)
[2022-03-15] MEDS: OLANZapine ORAL DISINTEGRATING TAB 5MG PO PRN ×2 (00:18→20:06)
[2022-03-15] MEDS: ACETAMINOPHEN TAB 650MG DOSE (2X325MG) PO PRN (00:19)
[2022-03-15 06:13] VITALS: BP 136/79
[2022-03-15] MEDS: hydrOXYzine 50 MG TAB PO PRN ×2 (06:28→18:03)
[2022-03-15] MEDS: PALIPERIDONE 3MG ER TAB (INVEGA) PO SCH ×2 (08:40→20:06)
[2022-03-15] MEDS: DIVALPROEX 250MG *ER* TAB PO SCH ×2 (08:40→20:06)
[2022-03-15 15:27] LABS: GC DNA AMPLIFICATION NEGATIVE (NEGATIVE)
[2022-03-15 18:00] VITALS: BP 127/63
[2022-03-15] MEDS: traZODone 100 MG TAB PO PRN (20:06)
[2022-03-16] MEDS: hydrOXYzine 50 MG TAB PO PRN (01:09)
[2022-03-16 06:28] VITALS: BP 156/82
[2022-03-16] MEDS: OLANZapine ORAL DISINTEGRATING TAB 5MG PO PRN (08:02)
[2022-03-16] MEDS: PALIPERIDONE 3MG ER TAB (INVEGA) PO SCH (08:02)
[2022-03-16] MEDS: DIVALPROEX 250MG *ER* TAB PO SCH (08:03)
[2022-03-16] MEDS ORDERED: HYDR50TA70 PO (09:07)
[2022-03-16] MEDS ORDERED: DEPA250T2 PO (09:07)
[2022-03-16] MEDS ORDERED: PALI1TAB2 PO (09:08)
[2022-03-16] MEDS ORDERED: TRAZ-257 PO (09:08)
[2022-03-16] MEDS ORDERED: BENZ-52 PO (09:09)
[2022-03-17] MEDS ORDERED: INVE6TAB3 PO ×2 (10:22→10:24)
== END 2022-03-16 11:18 | disposition home or self-care (01) | DRG 753 ==
LOC: M ED 01:01 → M ED INP 03-09 21:54 → M PSY 03-09 23:51
PROVIDERS: ADMIT Psychiatry & Neurology Psychiatry; ATTEND Psychiatry & Neurology Psychiatry
DX: F31.9 Bipolar disorder, unspecified (principal); F17.200 Nicotine dependence, unspecified, uncomplicated; J45.909 Unspecified asthma, uncomplicated; K58.9 Irritable bowel syndrome, unspecified; F90.9 Attention-deficit hyperactivity disorder, unspecified type; Z56.0 Unemployment, unspecified

== ENCOUNTER 2022-07-06 13:48 | Emergency (ER) | payer MEDICAID, OTHER ==
[~2022-07-06] VITALS: Ht 170.2 cm; Wt 107.9 kg
[~2022-07-06 13:48] MED LIST changes: +BENZ1TAB5 PO; +DEPA250T2 PO; +HYDR50TA70 PO; +INVE6TAB3 PO; +PALI1TAB2 PO; +TRAZ-257 PO
[2022-07-06 18:20] VITALS: BP 115/60
[2022-07-06 18:36] LABS: BASO % 0.4 % (0.0-1.0); EOS # 0.3 10^3/uL (0.0-0.5); EOS % 3.9 % (0.0-3.0); HEMATOCRIT 39.8 % (36.0-47.0); HEMOGLOBIN 13.6 g/dl (12.0-15.5); LYMPH # 1.9 10^3/uL (1.5-5.0); LYMPH % 24.6 % (24.0-44.0); MEAN CORPUSCULAR HEMOGLOBIN 31.5 pg (27.0-33.0); MEAN CORPUSCULAR HGB CONC 34.2 g/dl (32.0-36.5); MEAN CORPUSCULAR VOLUME 92.1 fl (80.0-96.0); MONO # 0.5 10^3/uL (0.0-0.8); MONO % 6.1 % (2.0-8.0); NEUTROPHILS # 5.1 10^3/uL (1.5-8.5); NEUTROPHILS % 64.6 % (36.0-66.0); PLATELET COUNT, AUTOMATED 242 10^3/uL (150-450); RED BLOOD COUNT 4.32 10^6/uL (4.00-5.40); WHITE BLOOD COUNT 7.9 10^3/uL (4.0-10.0)
[2022-07-06 18:50] LABS: ALBUMIN 3.7 G/DL (3.2-5.2); ALKALINE PHOSPHATASE 72 U/L (46-116); ALT/SGPT 14 U/L (7.0-40); AST/SGOT < 8 U/L (<34); BILIRUBIN,DIRECT < 0.1 MG/DL (<0.4); BILIRUBIN,TOTAL 0.2 MG/DL (0.3-1.2); BLOOD UREA NITROGEN 12 MG/DL (9-23); CARBON DIOXIDE LEVEL 30 MMOL/L (20-31); CHLORIDE LEVEL 104 MMOL/L (98-107); CREATININE FOR GFR 0.75 MG/DL (0.55-1.30); GLOMERULAR FILTRATION RATE > 60.0 (>60); GLUCOSE, FASTING 90 MG/DL (60-100); POTASSIUM SERUM 4.4 MMOL/L (3.5-5.1); SODIUM LEVEL 141 MMOL/L (136-145); TOTAL PROTEIN 6.3 G/DL (5.7-8.2)
[2022-07-06] MEDS ORDERED: KETOROLAC 30 MG/ML 1ML VIAL IV ONE (18:50)
[2022-07-06] MEDS ORDERED: ISOVUE-370 76% 100ML VIAL As Ordered ONE (18:56)
[2022-07-06 19:18] LABS: ERYTHROCYTE SEDIMENTATION RATE 7 mm/hr (0-20)
[2022-07-06] MEDS ORDERED: AMPICILLIN SOD/SULBACTAM SOD 3 GM in D5W MINI-BAG PLUS 100 ML IV ONE (19:25)
[2022-07-06] MEDS ORDERED: MORPHINE 4 MG/ML 1ML VIAL IV ONE (19:50)
[2022-07-06] MEDS ORDERED: AMOX875T2 PO (20:29)
== END 2022-07-06 20:37 | disposition home or self-care (01) ==
LOC: M ED 13:48
DX: L03.211 Cellulitis of face (principal); R68.84 Jaw pain; I10 Essential (primary) hypertension; R51.9 Headache, unspecified; F41.9 Anxiety disorder, unspecified; F32.A Depression, unspecified; F98.8 Other specified behavioral and emotional disorders with onset usually occurring in childhood and adolescence; F17.210 Nicotine dependence, cigarettes, uncomplicated
CPT/HCPCS: 70491; 80048; 80076; 81001; 85025; 85652; 86140; 87040; 96365; 96375; 99283; J0295; J1885; Q9967

== ENCOUNTER 2022-08-26 12:24 | Inpatient (IN) | payer OTHER ==
[~2022-08-26 12:24] MED LIST changes: +AMOX875T2 PO; +BENZ0.5T2 PO; -BENZ0.5T23 PO
[2022-08-26 13:35] LABS: HEMATOCRIT 40.6 % (36.0-47.0); HEMOGLOBIN 13.8 g/dl (12.0-15.5); MEAN CORPUSCULAR HEMOGLOBIN 30.9 pg (27.0-33.0); MEAN CORPUSCULAR VOLUME 90.8 fl (80.0-96.0); PLATELET COUNT, AUTOMATED 315 10^3/uL (150-450); RED BLOOD COUNT 4.47 10^6/uL (4.00-5.40)
[2022-08-26 14:01] LABS: AMPHETAMINES LEVEL URINE NEGATIVE (NEGATIVE); BARBITURATES URINE NEGATIVE (NEGATIVE); BENZODIAZEPINES URINE NEGATIVE (NEGATIVE); COCAINE METABOLITE URINE NEGATIVE (NEGATIVE); METHADONE URINE NEGATIVE (NEGATIVE); OPIATES URINE NEGATIVE (NEGATIVE); PHENCYCLIDINE URINE NEGATIVE (NEGATIVE)
[2022-08-26 14:03] LABS: VALPROIC ACID (DEPAKOTE) 45.2 UG/ML (50.0-100.0)
[2022-08-26 14:04] LABS: ETHYL ALCOHOL (ETHANOL) < 0.003 % (0.000-0.010)
[2022-08-26 14:05] LABS: ACETAMINOPHEN LEVEL < 2.0 UG/ML (10.0-20.0); SALICYLATE LEVEL < 3.0 MG/DL (<30)
[2022-08-26 14:07] LABS: HCG, SERUM QUALITATIVE NEGATIVE (NEGATIVE)
[2022-08-26 14:09] LABS: CANNABINOIDS URINE POSITIVE (NEGATIVE)
[2022-08-26] MEDS ORDERED: hydrOXYzine 50 MG TAB PO STA (14:13)
[2022-08-26 14:35] LABS: ALBUMIN 4.1 G/DL (3.2-5.2); ALKALINE PHOSPHATASE 77 U/L (46-116); ALT/SGPT 17 U/L (7.0-40); AST/SGOT 21 U/L (<34); BILIRUBIN,DIRECT 0.3 MG/DL (<0.4); BILIRUBIN,TOTAL 0.9 MG/DL (0.3-1.2); BLOOD UREA NITROGEN 8 MG/DL (9-23); CALCIUM LEVEL 9.4 MG/DL (8.5-10.1); CARBON DIOXIDE LEVEL 24 MMOL/L (20-31); CHLORIDE LEVEL 105 MMOL/L (98-107); CREATININE FOR GFR 0.71 MG/DL (0.55-1.30); GLOMERULAR FILTRATION RATE > 60.0 (>60); GLUCOSE, FASTING 88 MG/DL (60-100); POTASSIUM SERUM 4.1 MMOL/L (3.5-5.1); SODIUM LEVEL 137 MMOL/L (136-145); THYROID STIMULATING HORMONE 0.447 uIU/ML (0.55-4.78); TOTAL PROTEIN 6.7 G/DL (5.7-8.2)
[2022-08-26] MEDS ORDERED: DIVA500T94 PO (18:51)
[2022-08-26] MEDS ORDERED: AMOX875T2 PO (18:51)
[2022-08-26] MEDS ORDERED: RISP-9 PO (18:51)
[2022-08-26] MEDS ORDERED: HOME MED LIST COMPLETE! XX SCH (18:55)
[2022-08-26] MEDS ORDERED: MAALOX 30 ML SUSP *UDC PO PRN (22:10)
[2022-08-26] MEDS ORDERED: MOM 30ML SUSPENSION UDC PO PRN (22:10)
[2022-08-26] MEDS: LORazepam 1 MG TAB PO PRN (23:31)
[2022-08-26] MEDS: traZODone 50 MG TAB PO PRN (23:31)
[2022-08-26 23:36] VITALS: BP 142/90
[2022-08-27] MEDS: LORazepam 1 MG TAB PO PRN ×2 (06:19→12:15)
[2022-08-27] MEDS ORDERED: DIVALPROEX 250MG *ER* TAB PO SCH (09:00)
[2022-08-27] MEDS: DIVALPROEX 500 MG TAB PO SCH ×2 (12:39→21:13)
[2022-08-27] MEDS: PALIPERIDONE 3MG ER TAB (INVEGA) PO SCH ×2 (12:39→21:13)
[2022-08-27 17:30] VITALS: BP 138/85
[2022-08-27] MEDS: traZODone 50 MG TAB PO PRN (21:12)
[2022-08-28] MEDS: ACETAMINOPHEN TAB 650MG DOSE (2X325MG) PO PRN (01:00)
[2022-08-28] MEDS: OLANZapine ORAL DISINTEGRATING TAB 5MG PO PRN ×3 (01:48→21:41)
[2022-08-28] MEDS: LORazepam 1 MG TAB PO PRN ×4 (01:48→22:21)
[2022-08-28 06:38] VITALS: BP 116/58
[2022-08-28] MEDS: PALIPERIDONE 3MG ER TAB (INVEGA) PO SCH ×2 (08:40→21:38)
[2022-08-28] MEDS: DIVALPROEX 500 MG TAB PO SCH ×2 (08:40→21:38)
[2022-08-28] MEDS: guaiFENesin ER 600 MG TAB PO PRN (14:12)
[2022-08-28 17:59] VITALS: BP 150/85
[2022-08-28] MEDS: ALBUTEROL 90 MCG/ACT 8GM HFA INHALER INH PRN (21:36)
[2022-08-28] MEDS: traZODone 50 MG TAB PO PRN (22:20)
[2022-08-29] MEDS: ALBUTEROL 90 MCG/ACT 8GM HFA INHALER INH PRN ×3 (05:58→18:48)
[2022-08-29 06:23] VITALS: BP 148/74
[2022-08-29] MEDS: DIVALPROEX 500 MG TAB PO SCH ×2 (09:18→20:08)
[2022-08-29] MEDS: PALIPERIDONE 3MG ER TAB (INVEGA) PO SCH ×2 (09:18→20:08)
[2022-08-29] MEDS: LORazepam 1 MG TAB PO PRN ×3 (09:35→23:53)
[2022-08-29] MEDS: guaiFENesin ER 600 MG TAB PO PRN (11:52)
[2022-08-29] MEDS: OLANZapine ORAL DISINTEGRATING TAB 5MG PO PRN (17:47)
[2022-08-29 18:00] VITALS: BP 144/76
[2022-08-29] MEDS: traZODone 50 MG TAB PO PRN (21:05)
[2022-08-30] MEDS: ALBUTEROL 90 MCG/ACT 8GM HFA INHALER INH PRN ×2 (02:54→16:19)
[2022-08-30 06:10] VITALS: BP 128/73
[2022-08-30] MEDS: OLANZapine ORAL DISINTEGRATING TAB 5MG PO PRN ×2 (06:46→16:20)
[2022-08-30] MEDS: LORazepam 1 MG TAB PO PRN ×3 (07:23→21:00)
[2022-08-30] MEDS: PALIPERIDONE 3MG ER TAB (INVEGA) PO SCH ×2 (09:01→20:58)
[2022-08-30] MEDS: DIVALPROEX 500 MG TAB PO SCH ×2 (09:01→21:00)
[2022-08-30 17:53] VITALS: BP 140/82
[2022-08-30] MEDS: traZODone 50 MG TAB PO PRN (20:57)
[2022-08-31 07:04] VITALS: BP 156/87
[2022-08-31] MEDS: PALIPERIDONE 3MG ER TAB (INVEGA) PO SCH ×2 (09:26→20:58)
[2022-08-31] MEDS: DIVALPROEX 500 MG TAB PO SCH ×2 (09:27→20:58)
[2022-08-31] MEDS: ALBUTEROL 90 MCG/ACT 8GM HFA INHALER INH PRN (09:30)
[2022-08-31] MEDS: guaiFENesin ER 600 MG TAB PO PRN (11:16)
[2022-08-31] MEDS: OLANZapine ORAL DISINTEGRATING TAB 5MG PO PRN ×2 (11:17→19:50)
[2022-08-31 16:25] VITALS: BP 133/79
[2022-08-31] MEDS ORDERED: traZODone 50 MG TAB PO SCH (21:00)
[2022-08-31] MEDS: ACETAMINOPHEN TAB 650MG DOSE (2X325MG) PO PRN (21:01)
[2022-09-01] MEDS: LORazepam 1 MG TAB PO PRN ×2 (01:36→13:11)
[2022-09-01] MEDS: ALBUTEROL 90 MCG/ACT 8GM HFA INHALER INH PRN ×2 (01:53→11:23)
[2022-09-01] MEDS: guaiFENesin ER 600 MG TAB PO PRN (06:02)
[2022-09-01 07:02] VITALS: BP 130/84
[2022-09-01] MEDS: DIVALPROEX 500 MG TAB PO SCH (07:42)
[2022-09-01] MEDS: PALIPERIDONE 3MG ER TAB (INVEGA) PO SCH (07:42)
[2022-09-01] MEDS ORDERED: PALIPERIDONE PAL 234MG/1.5ML INJ (INVEGA)(FREE PSY INPT ONLY) IM ONE (09:25)
[2022-09-01] MEDS ORDERED: INVE234I IM (09:39)
[2022-09-01] MEDS ORDERED: TRAZ300T2 PO (09:39)
[2022-09-01] MEDS ORDERED: PALI1TAB2 PO (09:39)
[2022-09-01] MEDS ORDERED: DEPA1TAB3 PO (09:39)
[2022-09-01] MEDS ORDERED: ALBU6.7H6 INH (09:42)
== END 2022-09-01 15:24 | disposition home or self-care (01) | DRG 753 ==
LOC: M ED 12:24 → M ED INP 22:10 → M PSY 23:09
PROVIDERS: ADMIT Psychiatry & Neurology Psychiatry; ATTEND Student in an Organized Health Care Education/Training Program
DX: F31.9 Bipolar disorder, unspecified (principal); Z91.198 Patient's noncompliance with other medical treatment and regimen for other reason; F17.200 Nicotine dependence, unspecified, uncomplicated; Z79.899 Other long term (current) drug therapy; F19.10 Other psychoactive substance abuse, uncomplicated; G47.00 Insomnia, unspecified

== ENCOUNTER → 2022-11-23 | Outpatient (REF) | payer OTHER, MEDICAID ==
[~2022-11-23] MED LIST changes: +ALBU6.7H6 INH; +DEPA1TAB3 PO; +DIVA500T94 PO; +INVE234I IM; +RISP-9 PO; +TRAZ300T2 PO
[2022-11-23 18:57] LABS: CHOLESTEROL LEVEL 226 MG/DL (<200); CHOLESTEROL RISK RATIO 4.07 (<5); HDL CHOLESTEROL 55.5 MG/DL (>40); LDL CHOLESTEROL 117.7 MG/DL (<100); NON-HDL-C 170.5 MG/DL; THYROID STIMULATING HORMONE 1.424 uIU/ML (0.55-4.78); TOTAL 25(OH) VITAMIN D 21.9 NG/ML (20.0-100.0); TRIGLYCERIDES LEVEL 264 MG/DL (<150)
[2022-11-23 18:59] LABS: HCG, SERUM QUALITATIVE NEGATIVE (NEGATIVE)
== END ==
LOC: M LAB REF 16:43
PROVIDERS: ATTEND Nurse Practitioner Family
DX: E55.9 Vitamin D deficiency, unspecified (principal); Z79.3 Long term (current) use of hormonal contraceptives; E66.9 Obesity, unspecified

== ENCOUNTER 2022-12-04 21:46 | Inpatient (IN) | payer MEDICAID, OTHER ==
[~2022-12-04] VITALS: Ht 167.6 cm; Wt 109.1 kg
[2022-12-04] MEDS ORDERED: LORazepam 0.5 MG TAB PO ONE (22:20)
[2022-12-04 23:18] LABS: HEMATOCRIT 39.6 % (36.0-47.0); HEMOGLOBIN 13.3 g/dl (12.0-15.5); MEAN CORPUSCULAR HEMOGLOBIN 30.1 pg (27.0-33.0); MEAN CORPUSCULAR HGB CONC 33.6 g/dl (32.0-36.5); MEAN CORPUSCULAR VOLUME 89.6 fl (80.0-96.0); PLATELET COUNT, AUTOMATED 306 10^3/uL (150-450); RED BLOOD COUNT 4.42 10^6/uL (4.00-5.40); WHITE BLOOD COUNT 10.2 10^3/uL (4.0-10.0)
[2022-12-04 23:41] LABS: ETHYL ALCOHOL (ETHANOL) < 0.003 % (0.000-0.010); VALPROIC ACID (DEPAKOTE) 24.2 UG/ML (50.0-100.0)
[2022-12-04 23:42] LABS: ACETAMINOPHEN LEVEL < 2.0 UG/ML (10.0-20.0); SALICYLATE LEVEL < 3.0 MG/DL (<30)
[2022-12-04 23:43] LABS: ALBUMIN 3.6 G/DL (3.2-5.2); ALKALINE PHOSPHATASE 76 U/L (46-116); ALT/SGPT 21 U/L (7.0-40); AST/SGOT 17 U/L (<34); BILIRUBIN,DIRECT 0.2 MG/DL (<0.4); BILIRUBIN,TOTAL 0.5 MG/DL (0.3-1.2); BLOOD UREA NITROGEN 7 MG/DL (9-23); CALCIUM LEVEL 9.5 MG/DL (8.5-10.1); CARBON DIOXIDE LEVEL 24 MMOL/L (20-31); CHLORIDE LEVEL 107 MMOL/L (98-107); CREATININE FOR GFR 0.78 MG/DL (0.55-1.30); GLOMERULAR FILTRATION RATE > 60.0 (>60); GLUCOSE, FASTING 86 MG/DL (60-100); POTASSIUM SERUM 3.8 MMOL/L (3.5-5.1); SODIUM LEVEL 139 MMOL/L (136-145); TOTAL PROTEIN 6.5 G/DL (5.7-8.2)
[2022-12-04 23:44] LABS: THYROID STIMULATING HORMONE 1.751 uIU/ML (0.55-4.78)
[2022-12-05 00:16] LABS: HCG, SERUM QUALITATIVE NEGATIVE (NEGATIVE)
[2022-12-05 01:14] LABS: AMPHETAMINES LEVEL URINE NEGATIVE (NEGATIVE); BARBITURATES URINE NEGATIVE (NEGATIVE); BENZODIAZEPINES URINE NEGATIVE (NEGATIVE)
[2022-12-05 01:15] LABS: COCAINE METABOLITE URINE NEGATIVE (NEGATIVE); METHADONE URINE NEGATIVE (NEGATIVE); OPIATES URINE NEGATIVE (NEGATIVE); PHENCYCLIDINE URINE NEGATIVE (NEGATIVE)
[2022-12-05 01:16] LABS: CANNABINOIDS URINE POSITIVE (NEGATIVE)
[2022-12-05] MEDS ORDERED: QUET50TA4 PO (03:17)
[2022-12-05] MEDS ORDERED: med rec comment (03:18)
[2022-12-05] MEDS ORDERED: HOME MED LIST COMPLETE! XX SCH (03:20)
[2022-12-05] MEDS ORDERED: LORazepam 0.5 MG TAB PO STA (03:47)
[2022-12-05] MEDS ORDERED: OLANZapine ORAL DISINTEGRATING TAB 5MG PO ONE (04:00)
[2022-12-05 06:39] VITALS: BP 128/80; TEMP 99.4; O2SAT 98
[2022-12-05] MEDS ORDERED: OLANZapine ORAL DISINTEGRATING TAB 5MG PO STA (07:29)
[2022-12-05] MEDS ORDERED: LORazepam 1 MG TAB PO STA (07:29)
[2022-12-05] MEDS ORDERED: diazePAM 10 MG TAB PO STA (11:28)
[2022-12-05] MEDS: DIVALPROEX 500MG *ER* TAB PO SCH (11:51)
[2022-12-05] MEDS: PALIPERIDONE 6MG ER TAB (INVEGA) PO SCH (11:51)
[2022-12-05] MEDS ORDERED: diazePAM 5MG TABLET PO STA (12:20)
[2022-12-05] MEDS: ACETAMINOPHEN TAB 650MG DOSE (2X325MG) PO PRN (13:52)
[2022-12-05] MEDS: diphenhydrAMINE 25MG CAP PO PRN (14:02)
[2022-12-05 14:55] VITALS: BP 125/83; TEMP 96.6; O2SAT 96
[2022-12-05] MEDS: IBUPROFEN 400MG TAB PO PRN (18:56)
[2022-12-05] MEDS ORDERED: diphenhydrAMINE 50MG/ML VIAL IM STA (22:38)
[2022-12-05] MEDS ORDERED: HALOPERIDOL 5MG/ML 1ML VIAL IM STA (22:38)
[2022-12-05] MEDS ORDERED: LORazepam 2 MG/ML 1ML VIAL IM STA (22:38)
[2022-12-06] MEDS: diphenhydrAMINE 25MG CAP PO PRN (09:40)
[2022-12-06] MEDS: PALIPERIDONE 6MG ER TAB (INVEGA) PO SCH (09:40)
[2022-12-06] MEDS: DIVALPROEX 500MG *ER* TAB PO SCH (09:40)
[2022-12-06] MEDS ORDERED: diphenhydrAMINE 50MG/ML VIAL IM ONE (11:50)
[2022-12-06] MEDS ORDERED: HALOPERIDOL 5MG/ML 1ML VIAL IM ONE (11:50)
[2022-12-06] MEDS ORDERED: LORazepam 2 MG/ML 1ML VIAL IM ONE (11:50)
[2022-12-06 17:00] VITALS: BP 139/93; TEMP 95.7
[2022-12-06] MEDS: DIVALPROEX 250MG *ER* TAB PO SCH (20:49)
[2022-12-06] MEDS ORDERED: LORazepam 1 MG TAB PO ONE (21:00)
[2022-12-06] MEDS ORDERED: diphenhydrAMINE 50MG CAP PO ONE (21:00)
[2022-12-06] MEDS: NICOTINE 21MG/24HR 1 EA TRANSDERMAL TD PRN (21:35)
[2022-12-06] MEDS: traZODone 50 MG TAB PO PRN (21:35)
[2022-12-07] MEDS: MOM 30ML SUSPENSION UDC PO PRN (06:44)
[2022-12-07] MEDS: PALIPERIDONE 6MG ER TAB (INVEGA) PO SCH (09:33)
[2022-12-07] MEDS: DIVALPROEX 500MG *ER* TAB PO SCH (09:33)
[2022-12-07] MEDS ORDERED: diphenhydrAMINE 50MG/ML VIAL IV STA (15:11)
[2022-12-07] MEDS ORDERED: LORazepam 2 MG/ML 1ML VIAL IM STA (15:11)
[2022-12-07] MEDS ORDERED: HALOPERIDOL 5MG/ML 1ML VIAL IM STA (15:11)
[2022-12-07] MEDS ORDERED: diphenhydrAMINE 50MG/ML VIAL IM STA (15:20)
[2022-12-07 16:12] VITALS: BP 141/86; TEMP 97.9; O2SAT 95
[2022-12-07] MEDS: DIVALPROEX 250MG *ER* TAB PO SCH (21:26)
[2022-12-08] MEDS: PALIPERIDONE 6MG ER TAB (INVEGA) PO SCH (07:57)
[2022-12-08] MEDS: DIVALPROEX 500MG *ER* TAB PO SCH (07:57)
[2022-12-08] MEDS: NICOTINE 21MG/24HR 1 EA TRANSDERMAL TD PRN (07:58)
[2022-12-08] MEDS: diphenhydrAMINE 25MG CAP PO PRN ×2 (09:47→18:01)
[2022-12-08] MEDS: ACETAMINOPHEN TAB 650MG DOSE (2X325MG) PO PRN ×2 (09:52→19:38)
[2022-12-08] MEDS: IBUPROFEN 400MG TAB PO PRN (13:29)
[2022-12-08 16:27] VITALS: BP 158/96; TEMP 97.6; O2SAT 97
[2022-12-08 18:41] VITALS: BP 140/90
[2022-12-08] MEDS: traZODone 50 MG TAB PO PRN (20:00)
[2022-12-08] MEDS: DIVALPROEX 250MG *ER* TAB PO SCH (20:00)
[2022-12-09] MEDS: diphenhydrAMINE 25MG CAP PO PRN ×2 (07:56→20:27)
[2022-12-09] MEDS: DIVALPROEX 500MG *ER* TAB PO SCH ×2 (07:58→20:26)
[2022-12-09] MEDS: PALIPERIDONE 6MG ER TAB (INVEGA) PO SCH (07:58)
[2022-12-09] MEDS: NICOTINE 21MG/24HR 1 EA TRANSDERMAL TD PRN (08:26)
[2022-12-09] MEDS ORDERED: PALIPERIDONE 3MG ER TAB (INVEGA) PO SCH (09:00)
[2022-12-09] MEDS ORDERED: ALPRAZolam 0.5 MG TAB PO ONE (11:55)
[2022-12-09 16:30] VITALS: BP 146/82; TEMP 97.6; O2SAT 99
[2022-12-09] MEDS: MOM 30ML SUSPENSION UDC PO PRN (19:33)
[2022-12-09] MEDS: traZODone 50 MG TAB PO PRN (23:07)
[2022-12-10 06:10] VITALS: BP 128/68; TEMP 96.8; O2SAT 96
[2022-12-10] MEDS: PALIPERIDONE 3MG ER TAB (INVEGA) PO SCH (08:21)
[2022-12-10] MEDS: DIVALPROEX 500MG *ER* TAB PO SCH ×2 (08:21→20:32)
[2022-12-10] MEDS: NICOTINE 21MG/24HR 1 EA TRANSDERMAL TD PRN (08:22)
[2022-12-10] MEDS: diphenhydrAMINE 25MG CAP PO PRN ×2 (08:56→19:24)
[2022-12-10] MEDS: ACETAMINOPHEN TAB 650MG DOSE (2X325MG) PO PRN (10:38)
[2022-12-10] MEDS ORDERED: ALPRAZolam 0.5 MG TAB PO ONE (10:55)
[2022-12-10 17:52] VITALS: BP 127/76; TEMP 96.7; O2SAT 98
[2022-12-10] MEDS: MOM 30ML SUSPENSION UDC PO PRN (18:14)
[2022-12-10] MEDS: traZODone 50 MG TAB PO PRN (20:58)
[2022-12-11] MEDS: ACETAMINOPHEN TAB 650MG DOSE (2X325MG) PO PRN ×2 (04:27→20:25)
[2022-12-11 06:24] VITALS: BP 129/72; TEMP 97.3; O2SAT 100
[2022-12-11] MEDS: DIVALPROEX 500MG *ER* TAB PO SCH ×2 (09:08→20:26)
[2022-12-11] MEDS: PALIPERIDONE 3MG ER TAB (INVEGA) PO SCH (09:08)
[2022-12-11] MEDS: NICOTINE 21MG/24HR 1 EA TRANSDERMAL TD PRN (09:09)
[2022-12-11] MEDS: diphenhydrAMINE 25MG CAP PO PRN ×2 (10:40→20:25)
[2022-12-11] MEDS: MAALOX 30 ML SUSP *UDC PO PRN (16:52)
[2022-12-11 18:54] VITALS: BP 126/70; TEMP 97.5
[2022-12-11] MEDS: traZODone 50 MG TAB PO PRN (20:53)
[2022-12-12] MEDS: ACETAMINOPHEN TAB 650MG DOSE (2X325MG) PO PRN ×2 (05:35→20:01)
[2022-12-12 06:52] VITALS: BP 144/76; TEMP 96.7; O2SAT 98
[2022-12-12] MEDS: PALIPERIDONE 3MG ER TAB (INVEGA) PO SCH (07:56)
[2022-12-12] MEDS: DIVALPROEX 500MG *ER* TAB PO SCH ×2 (07:56→20:01)
[2022-12-12] MEDS: NICOTINE 21MG/24HR 1 EA TRANSDERMAL TD PRN (07:57)
[2022-12-12] MEDS: MAALOX 30 ML SUSP *UDC PO PRN ×2 (09:56→20:00)
[2022-12-12] MEDS: diphenhydrAMINE 25MG CAP PO PRN (15:03)
[2022-12-12 18:07] VITALS: BP 142/73; TEMP 96.9; O2SAT 99
[2022-12-12] MEDS: traZODone 50 MG TAB PO PRN (20:01)
[2022-12-13] MEDS: diphenhydrAMINE 25MG CAP PO PRN ×3 (02:44→19:34)
[2022-12-13] MEDS: ACETAMINOPHEN TAB 650MG DOSE (2X325MG) PO PRN ×2 (04:28→15:14)
[2022-12-13] MEDS: MOM 30ML SUSPENSION UDC PO PRN (05:12)
[2022-12-13 06:37] VITALS: BP_SYST 140; BP_SYST 162; BP_DIAS 70; BP_DIAS 94; TEMP 96.5; O2SAT 97
[2022-12-13] MEDS: DIVALPROEX 500MG *ER* TAB PO SCH ×2 (08:18→20:20)
[2022-12-13] MEDS: PALIPERIDONE 3MG ER TAB (INVEGA) PO SCH (08:18)
[2022-12-13] MEDS: NICOTINE 21MG/24HR 1 EA TRANSDERMAL TD PRN (08:20)
[2022-12-13 18:41] VITALS: BP 148/91; TEMP 98.3; O2SAT 99
[2022-12-13] MEDS: IBUPROFEN 400MG TAB PO PRN (19:35)
[2022-12-13] MEDS: traZODone 50 MG TAB PO PRN (20:20)
[2022-12-14] MEDS: ACETAMINOPHEN TAB 650MG DOSE (2X325MG) PO PRN ×3 (03:18→20:32)
[2022-12-14 06:39] VITALS: BP 149/85; TEMP 97; O2SAT 98
[2022-12-14] MEDS: DIVALPROEX 500MG *ER* TAB PO SCH ×2 (08:00→20:03)
[2022-12-14] MEDS: diphenhydrAMINE 25MG CAP PO PRN ×2 (08:00→18:08)
[2022-12-14] MEDS: OLANZapine 10 MG TAB PO SCH (08:17)
[2022-12-14] MEDS: PALIPERIDONE 6MG ER TAB (INVEGA) PO SCH (08:17)
[2022-12-14] MEDS: NICOTINE 21MG/24HR 1 EA TRANSDERMAL TD PRN (13:18)
[2022-12-14] MEDS: MAALOX 30 ML SUSP *UDC PO PRN (15:15)
[2022-12-14 17:11] VITALS: BP 132/74; TEMP 97
[2022-12-14] MEDS: traZODone 50 MG TAB PO PRN (21:48)
[2022-12-15 06:42] VITALS: TEMP 97; O2SAT 99
[2022-12-15] MEDS: DIVALPROEX 500MG *ER* TAB PO SCH ×2 (08:22→20:03)
[2022-12-15] MEDS: PALIPERIDONE 6MG ER TAB (INVEGA) PO SCH (08:22)
[2022-12-15] MEDS: OLANZapine 10 MG TAB PO SCH (08:22)
[2022-12-15] MEDS: diphenhydrAMINE 25MG CAP PO PRN ×2 (08:22→16:02)
[2022-12-15] MEDS ORDERED: ALBUTEROL 90 MCG/ACT 8GM HFA INHALER INH PRN (11:25)
[2022-12-15] MEDS: NICOTINE 21MG/24HR 1 EA TRANSDERMAL TD PRN (13:34)
[2022-12-15] MEDS: IBUPROFEN 400MG TAB PO PRN ×2 (14:00→22:38)
[2022-12-15 15:21] VITALS: BP 164/92; TEMP 97.3; O2SAT 96
[2022-12-15] MEDS: MIRTAZAPINE 15 MG TAB PO PRN (20:03)
[2022-12-15] MEDS: MAALOX 30 ML SUSP *UDC PO PRN (23:04)
[2022-12-16] MEDS: diphenhydrAMINE 25MG CAP PO PRN ×2 (00:10→20:48)
[2022-12-16] MEDS: ACETAMINOPHEN TAB 650MG DOSE (2X325MG) PO PRN (02:19)
[2022-12-16] MEDS: DIVALPROEX 500MG *ER* TAB PO SCH ×2 (08:20→20:48)
[2022-12-16] MEDS: PALIPERIDONE 3MG ER TAB (INVEGA) PO SCH (08:20)
[2022-12-16] MEDS: OLANZapine 10 MG TAB PO SCH (08:20)
[2022-12-16] MEDS: NICOTINE 21MG/24HR 1 EA TRANSDERMAL TD PRN (08:23)
[2022-12-16 10:51] VITALS: BP 132/79; TEMP 96.5; O2SAT 98
[2022-12-16 18:00] VITALS: BP 132/86; TEMP 98.2
[2022-12-16] MEDS: MOM 30ML SUSPENSION UDC PO PRN (20:49)
[2022-12-16] MEDS: MIRTAZAPINE 15 MG TAB PO PRN (20:49)
[2022-12-17] MEDS: diphenhydrAMINE 25MG CAP PO PRN ×2 (02:54→11:37)
[2022-12-17] MEDS: IBUPROFEN 400MG TAB PO PRN (02:54)
[2022-12-17] MEDS: MAALOX 30 ML SUSP *UDC PO PRN ×2 (02:54→17:03)
[2022-12-17 06:43] VITALS: BP 135/96; TEMP 96.8; O2SAT 99
[2022-12-17] MEDS: DIVALPROEX 500MG *ER* TAB PO SCH ×2 (08:21→20:40)
[2022-12-17] MEDS: PALIPERIDONE 3MG ER TAB (INVEGA) PO SCH (08:21)
[2022-12-17] MEDS: OLANZapine 10 MG TAB PO SCH (08:21)
[2022-12-17] MEDS: NICOTINE 21MG/24HR 1 EA TRANSDERMAL TD PRN (08:25)
[2022-12-17] MEDS: MOM 30ML SUSPENSION UDC PO PRN (11:37)
[2022-12-17 18:09] VITALS: BP 135/70; TEMP 97.7; O2SAT 100
[2022-12-17] MEDS: ACETAMINOPHEN TAB 650MG DOSE (2X325MG) PO PRN (20:39)
[2022-12-17] MEDS: MIRTAZAPINE 15 MG TAB PO PRN (20:40)
[2022-12-18] MEDS: PREPARATION H OINTMENT (HEMORRHOID) PR PRN ×3 (05:09→20:05)
[2022-12-18] MEDS: IBUPROFEN 400MG TAB PO PRN ×2 (05:12→16:00)
[2022-12-18 06:33] VITALS: BP 134/68; TEMP 97.8; O2SAT 95
[2022-12-18] MEDS: OLANZapine 10 MG TAB PO SCH (08:40)
[2022-12-18] MEDS: DIVALPROEX 500MG *ER* TAB PO SCH ×2 (08:40→20:07)
[2022-12-18] MEDS: NICOTINE 21MG/24HR 1 EA TRANSDERMAL TD PRN (08:41)
[2022-12-18] MEDS: diphenhydrAMINE 25MG CAP PO PRN (15:59)
[2022-12-18 16:05] VITALS: BP 134/63; TEMP 97.6; O2SAT 98
[2022-12-18] MEDS: MIRTAZAPINE 15 MG TAB PO PRN (20:06)
[2022-12-19] MEDS: diphenhydrAMINE 25MG CAP PO PRN (04:08)
[2022-12-19] MEDS: IBUPROFEN 400MG TAB PO PRN (05:27)
[2022-12-19 06:09] VITALS: BP 151/81; TEMP 97.5; O2SAT 98
[2022-12-19] MEDS: OLANZapine 10 MG TAB PO SCH (08:19)
[2022-12-19] MEDS: DIVALPROEX 500MG *ER* TAB PO SCH ×2 (08:19→20:16)
[2022-12-19] MEDS: NICOTINE 21MG/24HR 1 EA TRANSDERMAL TD PRN (08:19)
[2022-12-19 18:00] VITALS: BP 131/80; TEMP 97.3
[2022-12-19] MEDS: PREPARATION H OINTMENT (HEMORRHOID) PR PRN (20:15)
[2022-12-19] MEDS: MIRTAZAPINE 15 MG TAB PO PRN (20:16)
[2022-12-20] MEDS: diphenhydrAMINE 25MG CAP PO PRN ×2 (01:59→12:52)
[2022-12-20] MEDS: ACETAMINOPHEN TAB 650MG DOSE (2X325MG) PO PRN (02:25)
[2022-12-20 05:56] VITALS: BP 133/71; TEMP 98; O2SAT 98
[2022-12-20] MEDS: NICOTINE 21MG/24HR 1 EA TRANSDERMAL TD PRN (08:03)
[2022-12-20] MEDS: OLANZapine 10 MG TAB PO SCH (08:03)
[2022-12-20] MEDS: DIVALPROEX 500MG *ER* TAB PO SCH ×2 (08:03→20:02)
[2022-12-20] MEDS: MAALOX 30 ML SUSP *UDC PO PRN (12:52)
[2022-12-20 18:00] VITALS: BP 139/74; TEMP 97
[2022-12-20] MEDS: MIRTAZAPINE 15 MG TAB PO PRN (20:02)
[2022-12-21] MEDS: diphenhydrAMINE 25MG CAP PO PRN (02:27)
[2022-12-21] MEDS: PREPARATION H OINTMENT (HEMORRHOID) PR PRN (03:06)
[2022-12-21] MEDS: ACETAMINOPHEN TAB 650MG DOSE (2X325MG) PO PRN (05:09)
[2022-12-21 06:37] VITALS: BP 137/70; TEMP 98.3; O2SAT 98
[2022-12-21] MEDS: DIVALPROEX 500MG *ER* TAB PO SCH ×2 (08:12→20:15)
[2022-12-21] MEDS: OLANZapine 10 MG TAB PO SCH (08:12)
[2022-12-21] MEDS: NICOTINE 21MG/24HR 1 EA TRANSDERMAL TD PRN (11:05)
[2022-12-21 16:20] VITALS: BP 125/68; TEMP 97.1; O2SAT 98
[2022-12-21] MEDS: MOM 30ML SUSPENSION UDC PO PRN (20:14)
[2022-12-21] MEDS: IBUPROFEN 400MG TAB PO PRN (20:15)
[2022-12-21] MEDS: MIRTAZAPINE 15 MG TAB PO PRN (20:16)
[2022-12-22] MEDS: diphenhydrAMINE 25MG CAP PO PRN ×2 (03:13→18:53)
[2022-12-22] MEDS ORDERED: hydrOXYzine 50 MG TAB PO ONE (04:30)
[2022-12-22 07:14] VITALS: BP 152/74; TEMP 97.8; O2SAT 98
[2022-12-22] MEDS: OLANZapine 10 MG TAB PO SCH (08:07)
[2022-12-22] MEDS: DIVALPROEX 500MG *ER* TAB PO SCH ×2 (08:08→20:22)
[2022-12-22] MEDS: VITAMIN D 1,000 INTERNATIONAL UNITS TABLET PO SCH (09:17)
[2022-12-22] MEDS: hydrOXYzine 50 MG TAB PO SCH ×2 (10:09→20:22)
[2022-12-22] MEDS: NICOTINE 21MG/24HR 1 EA TRANSDERMAL TD PRN (18:53)
[2022-12-22] MEDS: MIRTAZAPINE 15 MG TAB PO PRN (20:22)
[2022-12-22] MEDS ORDERED: QUEtiapine FUMARATE 25 MG TAB PO SCH (21:00)
[2022-12-23] MEDS: IBUPROFEN 400MG TAB PO PRN (03:34)
[2022-12-23 06:25] VITALS: BP 141/88; TEMP 96.1; O2SAT 93
[2022-12-23] MEDS: hydrOXYzine 50 MG TAB PO SCH ×2 (08:32→20:20)
[2022-12-23] MEDS: VITAMIN D 1,000 INTERNATIONAL UNITS TABLET PO SCH (08:32)
[2022-12-23] MEDS: DIVALPROEX 500MG *ER* TAB PO SCH ×2 (08:32→20:20)
[2022-12-23] MEDS: OLANZapine 10 MG TAB PO SCH (08:33)
[2022-12-23 16:30] VITALS: BP 127/72; TEMP 97.6; O2SAT 100
[2022-12-23] MEDS: MOM 30ML SUSPENSION UDC PO PRN (16:58)
[2022-12-23] MEDS: MIRTAZAPINE 15 MG TAB PO PRN (20:20)
[2022-12-23] MEDS ORDERED: QUEtiapine FUMARATE 100 MG TAB PO SCH (21:00)
[2022-12-24 06:18] VITALS: BP 138/79; TEMP 97.5; O2SAT 97
[2022-12-24] MEDS: hydrOXYzine 50 MG TAB PO SCH (08:06)
[2022-12-24] MEDS: VITAMIN D 1,000 INTERNATIONAL UNITS TABLET PO SCH (08:06)
[2022-12-24] MEDS: DIVALPROEX 500MG *ER* TAB PO SCH (08:07)
[2022-12-24] MEDS: OLANZapine 10 MG TAB PO SCH (08:07)
[2022-12-24] MEDS ORDERED: MIRT-11 PO (10:47)
[2022-12-24] MEDS ORDERED: DEPA500T2 PO (10:47)
[2022-12-24] MEDS ORDERED: OLAN15TA13 PO (10:47)
[2022-12-24] MEDS ORDERED: QUET100T2 PO (10:47)
[2022-12-24] MEDS ORDERED: NICO21PAT TD (10:47)
[2022-12-24] MEDS ORDERED: HYDR50TA70 PO (10:47)
[2022-12-25 11:59] LABS: GC DNA AMPLIFICATION NEGATIVE (NEGATIVE)
== END 2022-12-24 11:56 | disposition home or self-care (01) | DRG 753 ==
LOC: M ED 21:46 → M ED INP 12-05 02:55 → M PSY 12-05 03:33
PROVIDERS: ADMIT Student in an Organized Health Care Education/Training Program; ATTEND Student in an Organized Health Care Education/Training Program
DX: F31.9 Bipolar disorder, unspecified (principal); F90.9 Attention-deficit hyperactivity disorder, unspecified type; F60.89 Other specific personality disorders; J45.909 Unspecified asthma, uncomplicated; K58.9 Irritable bowel syndrome, unspecified; Z20.822 Contact with and (suspected) exposure to COVID-19; Z79.899 Other long term (current) drug therapy; Z83.3 Family history of diabetes mellitus

== ENCOUNTER 2023-01-28 19:00 | Inpatient (IN) | payer MEDICAID, OTHER ==
[~2023-01-28] VITALS: Ht 167.6 cm; Wt 109.9 kg
[~2023-01-28 19:00] MED LIST changes: +DEPA500T2 PO; +MIRT-11 PO; +NICO21PAT TD; +OLAN15TA13 PO; +QUET100T2 PO; +QUET50TA4 PO; +med rec comment
[2023-01-28] MEDS ORDERED: LORazepam 2 MG/ML 1ML VIAL IM STA (19:09)
[2023-01-28] MEDS ORDERED: OLANZapine ORAL DISINTEGRATING TAB 5MG PO ONE (20:00)
[2023-01-28] MEDS ORDERED: ALPRAZolam 0.5 MG TAB PO ONE (20:00)
[2023-01-28] MEDS ORDERED: MUPIROCIN 2% OINT 22 GM TUBE TOP ONE (20:00)
[2023-01-28 20:48] LABS: HEMATOCRIT 38.3 % (36.0-47.0); HEMOGLOBIN 12.9 g/dl (12.0-15.5); MEAN CORPUSCULAR HEMOGLOBIN 30.8 pg (27.0-33.0); MEAN CORPUSCULAR HGB CONC 33.7 g/dl (32.0-36.5); MEAN CORPUSCULAR VOLUME 91.4 fl (80.0-96.0); PLATELET COUNT, AUTOMATED 305 10^3/uL (150-450); RED BLOOD COUNT 4.19 10^6/uL (4.00-5.40); WHITE BLOOD COUNT 8.1 10^3/uL (4.0-10.0)
[2023-01-28] MEDS ORDERED: ACETAMINOPHEN TAB 650MG DOSE (2X325MG) PO PRN (22:55)
[2023-01-28] MEDS ORDERED: IBUPROFEN 400MG TAB PO PRN (22:55)
[2023-01-28] MEDS: diphenhydrAMINE 25MG CAP PO PRN (23:42)
[2023-01-29] MEDS: diphenhydrAMINE 25MG CAP PO PRN (00:24)
[2023-01-29] MEDS: traZODone 50 MG TAB PO PRN (00:29)
[2023-01-29] MEDS ORDERED: MED REC CURRENTLY UNOBTAINABLE XX SCH (00:45)
[2023-01-29] MEDS ORDERED: LORazepam 2 MG/ML 1ML VIAL IM STA ×4 (01:33→16:28)
[2023-01-29] MEDS ORDERED: diphenhydrAMINE 50MG/ML VIAL IM ONE (01:35)
[2023-01-29] MEDS ORDERED: HALOPERIDOL 5MG/ML 1ML VIAL IM ONE (02:00)
[2023-01-29] MEDS ORDERED: LORazepam 2 MG TAB PO ONE (02:00)
[2023-01-29] MEDS ORDERED: OLANZapine INTRAMUSCULAR 10MG VIAL IM ONE (06:40)
[2023-01-29 10:05] LABS: AMPHETAMINES LEVEL URINE NEGATIVE (NEGATIVE); BARBITURATES URINE NEGATIVE (NEGATIVE); BENZODIAZEPINES URINE NEGATIVE (NEGATIVE); CANNABINOIDS URINE POSITIVE (NEGATIVE)
[2023-01-29 10:06] LABS: COCAINE METABOLITE URINE NEGATIVE (NEGATIVE); OPIATES URINE NEGATIVE (NEGATIVE); PHENCYCLIDINE URINE NEGATIVE (NEGATIVE)
[2023-01-29 10:09] LABS: ETHYL ALCOHOL (ETHANOL) < 0.00 % (0.00-0.01); SALICYLATE LEVEL < 3.0 MG/DL (2.0-20.0)
[2023-01-29 10:10] LABS: BLOOD UREA NITROGEN 10 MG/DL (7-21); CALCIUM LEVEL 9.5 MG/DL (8.4-10.2); CARBON DIOXIDE LEVEL 20 MEQ/L (22-30); CHLORIDE LEVEL 105 MEQ/L (98-107); CREATININE FOR GFR 0.7 MG/DL (0.7-1.5); GLOMERULAR FILTRATION RATE > 60.0 (>60); GLUCOSE, FASTING 98 MG/DL (70-99); POTASSIUM SERUM 4.1 MEQ/L (3.6-5.0); SODIUM LEVEL 141 MEQ/L (134-153)
[2023-01-29 10:11] LABS: ALBUMIN 4.4 G/DL (3.9-5.0); ALKALINE PHOSPHATASE 85 U/L (35-104); ALT/SGPT 16 U/L (1-33); AST/SGOT 25 U/L (5-40); BILIRUBIN,DIRECT < 0.2 MG/DL (0.1-0.4); BILIRUBIN,TOTAL < 0.7 MG/DL (0.2-1.3); TOTAL PROTEIN 6.5 G/DL (6.3-8.2)
[2023-01-29] MEDS ORDERED: NICO1DIS12 TD (10:39)
[2023-01-29] MEDS ORDERED: ETON1VAG7 PV (10:39)
[2023-01-29] MEDS ORDERED: VITA200032 PO (10:39)
[2023-01-29] MEDS ORDERED: OLAN15TA13 PO (10:39)
[2023-01-29] MEDS ORDERED: ALBU8.5H INH (10:39)
[2023-01-29] MEDS ORDERED: HYDR50TA70 PO (10:39)
[2023-01-29] MEDS ORDERED: DIVA500T9 PO (10:39)
[2023-01-29] MEDS ORDERED: QUET100T2 PO (10:39)
[2023-01-29] MEDS ORDERED: METR-265 PO (10:39)
[2023-01-29] MEDS ORDERED: MIRT1TAB16 PO (10:39)
[2023-01-29] MEDS ORDERED: HOME MED LIST COMPLETE! XX SCH (10:40)
[2023-01-29] MEDS ORDERED: HALOPERIDOL 5MG/ML 1ML VIAL IM STA (16:28)
[2023-01-30] MEDS: traZODone 50 MG TAB PO PRN (01:48)
[2023-01-30] MEDS: diphenhydrAMINE 25MG CAP PO PRN ×2 (01:48→08:15)
[2023-01-30] MEDS: DIVALPROEX 500 MG TAB PO SCH ×2 (11:35→20:55)
[2023-01-30] MEDS: MUPIROCIN 2% OINT 22 GM TUBE TOP SCH ×2 (14:21→20:56)
[2023-01-30] MEDS: LORazepam 1 MG TAB PO PRN (14:55)
[2023-01-30] MEDS: NICOTINE 21MG/24HR 1 EA TRANSDERMAL TD SCH (15:53)
[2023-01-30 17:44] VITALS: BP 137/82; TEMP 97.5; O2SAT 98
[2023-01-30] MEDS: MOM 30ML SUSPENSION UDC PO PRN (18:14)
[2023-01-30] MEDS: QUEtiapine FUMARATE 100 MG TAB PO SCH (20:56)
[2023-01-31] MEDS: LORazepam 1 MG TAB PO PRN ×2 (07:01→14:39)
[2023-01-31] MEDS: diphenhydrAMINE 25MG CAP PO PRN ×3 (07:02→20:19)
[2023-01-31 07:21] VITALS: BP 106/70; TEMP 96.2; O2SAT 95
[2023-01-31] MEDS: DIVALPROEX 500 MG TAB PO SCH ×2 (09:43→20:19)
[2023-01-31] MEDS: NICOTINE 21MG/24HR 1 EA TRANSDERMAL TD SCH (09:43)
[2023-01-31] MEDS: MUPIROCIN 2% OINT 22 GM TUBE TOP SCH ×2 (09:49→21:00)
[2023-01-31 18:00] VITALS: BP 116/93; TEMP 97.4; O2SAT 100
[2023-01-31] MEDS: QUEtiapine FUMARATE 100 MG TAB PO SCH (20:19)
[2023-01-31] MEDS: MAALOX 30 ML SUSP *UDC PO PRN (20:21)
[2023-02-01 05:56] VITALS: BP 125/59; TEMP 97.4; O2SAT 98
[2023-02-01] MEDS: DIVALPROEX 500 MG TAB PO SCH (08:10)
[2023-02-01] MEDS: NICOTINE 21MG/24HR 1 EA TRANSDERMAL TD SCH (08:10)
[2023-02-01] MEDS: LORazepam 1 MG TAB PO PRN (08:10)
[2023-02-01] MEDS: MUPIROCIN 2% OINT 22 GM TUBE TOP SCH (08:11)
[2023-02-01] MEDS: MAALOX 30 ML SUSP *UDC PO PRN (11:16)
[2023-02-01] MEDS: MOM 30ML SUSPENSION UDC PO PRN (11:16)
[2023-02-01] MEDS: diphenhydrAMINE 25MG CAP PO PRN (11:16)
== END 2023-02-01 11:45 | disposition home or self-care (01) | DRG 753 ==
LOC: M ED 19:00 → M ED INP 22:54 → M PSY 01-29 19:20
PROVIDERS: ADMIT Student in an Organized Health Care Education/Training Program; ATTEND Student in an Organized Health Care Education/Training Program
DX: F31.2 Bipolar disorder, current episode manic severe with psychotic features (principal); F16.10 Hallucinogen abuse, uncomplicated; F12.10 Cannabis abuse, uncomplicated; J45.909 Unspecified asthma, uncomplicated; F17.210 Nicotine dependence, cigarettes, uncomplicated

== ENCOUNTER 2023-02-02 12:27 | Inpatient (IN) | payer OTHER ==
[~2023-02-02] VITALS: Ht 167.6 cm; Wt 120.0 kg
[~2023-02-02 12:27] MED LIST changes: +ALBU8.5H INH; +DIVA500T9 PO; +ETON1VAG7 PV; +METR-265 PO; +MIRT1TAB16 PO; +NICO1DIS12 TD; +VITA200032 PO
[2023-02-02] MEDS ORDERED: LORazepam 2 MG/ML 1ML VIAL IM STA ×2 (12:58→22:47)
[2023-02-02] MEDS ORDERED: diphenhydrAMINE 50MG/ML VIAL IM ONE (13:00)
[2023-02-02] MEDS ORDERED: HOME MED LIST COMPLETE! XX SCH (13:05)
[2023-02-02] MEDS ORDERED: diphenhydrAMINE 50MG/ML VIAL As Ordered ONE (13:08)
[2023-02-02] MEDS ORDERED: HALOPERIDOL 5MG/ML 1ML VIAL As Ordered ONE (13:08)
[2023-02-02] MEDS ORDERED: LORazepam 2 MG/ML 1ML VIAL As Ordered ONE (13:10)
[2023-02-02] MEDS ORDERED: HALOPERIDOL 5MG/ML 1ML VIAL IM ONE (13:15)
[2023-02-02 14:03] LABS: HEMATOCRIT 43.9 % (36.0-47.0); HEMOGLOBIN 15.5 g/dl (12.0-15.5); MEAN CORPUSCULAR HEMOGLOBIN 30.9 pg (27.0-33.0); MEAN CORPUSCULAR HGB CONC 35.3 g/dl (32.0-36.5); MEAN CORPUSCULAR VOLUME 87.6 fl (80.0-96.0); PLATELET COUNT, AUTOMATED 379 10^3/uL (150-450); RED BLOOD COUNT 5.01 10^6/uL (4.00-5.40); WHITE BLOOD COUNT 11.6 10^3/uL (4.0-10.0)
[2023-02-02 14:19] LABS: ETHYL ALCOHOL (ETHANOL) 0.006 % (0.000-0.010)
[2023-02-02 14:21] LABS: ALKALINE PHOSPHATASE 84 U/L (46-116); ALT/SGPT 30 U/L (7.0-40); AST/SGOT 22 U/L (<34); BILIRUBIN,DIRECT 0.2 MG/DL (<0.4); BILIRUBIN,TOTAL 0.5 MG/DL (0.3-1.2); BLOOD UREA NITROGEN 11 MG/DL (9-23); CALCIUM LEVEL 10.2 MG/DL (8.5-10.1); CARBON DIOXIDE LEVEL 22 MMOL/L (20-31); CHLORIDE LEVEL 105 MMOL/L (98-107); CREATININE FOR GFR 0.81 MG/DL (0.55-1.30); GLOMERULAR FILTRATION RATE > 60.0 (>60); GLUCOSE, FASTING 81 MG/DL (60-100); POTASSIUM SERUM 4.2 MMOL/L (3.5-5.1); SALICYLATE LEVEL < 3.0 MG/DL (<30); SODIUM LEVEL 141 MMOL/L (136-145)
[2023-02-02 14:23] LABS: THYROID STIMULATING HORMONE 0.734 uIU/ML (0.55-4.78)
[2023-02-02 14:31] LABS: AMPHETAMINES LEVEL URINE NEGATIVE (NEGATIVE); BARBITURATES URINE NEGATIVE (NEGATIVE); BENZODIAZEPINES URINE NEGATIVE (NEGATIVE); COCAINE METABOLITE URINE NEGATIVE (NEGATIVE); METHADONE URINE NEGATIVE (NEGATIVE); OPIATES URINE NEGATIVE (NEGATIVE); PHENCYCLIDINE URINE NEGATIVE (NEGATIVE)
[2023-02-02 14:34] LABS: CANNABINOIDS URINE POSITIVE (NEGATIVE)
[2023-02-02 14:41] LABS: HCG, SERUM QUALITATIVE NEGATIVE (NEGATIVE)
[2023-02-02] MEDS ORDERED: diphenhydrAMINE 25MG CAP PO ONE (18:45)
[2023-02-02] MEDS ORDERED: LORazepam 2 MG TAB PO ONE (18:45)
[2023-02-02] MEDS ORDERED: IBUPROFEN 400MG TAB PO PRN (18:50)
[2023-02-02] MEDS ORDERED: OLANZapine ORAL DISINTEGRATING TAB 5MG PO PRN (18:50)
[2023-02-02] MEDS ORDERED: HALOPERIDOL 5MG/ML 1ML VIAL IM STA (22:47)
[2023-02-02] MEDS ORDERED: LORazepam 2 MG TAB PO STA (22:56)
[2023-02-02] MEDS: QUEtiapine FUMARATE 100 MG TAB PO SCH (23:03)
[2023-02-02] MEDS: MUPIROCIN 2% OINT 22 GM TUBE TOP SCH (23:18)
[2023-02-02 23:26] VITALS: BP 129/71; TEMP 97.3; O2SAT 96
[2023-02-03] MEDS ORDERED: OLANZapine 10 MG TAB PO ONE (08:50)
[2023-02-03] MEDS: diphenhydrAMINE 25MG CAP PO PRN ×2 (08:59→17:59)
[2023-02-03] MEDS: MUPIROCIN 2% OINT 22 GM TUBE TOP SCH ×2 (09:00→20:03)
[2023-02-03] MEDS ORDERED: DIVALPROEX 500MG *ER* TAB PO ONE (10:05)
[2023-02-03] MEDS: ACETAMINOPHEN TAB 650MG DOSE (2X325MG) PO PRN ×2 (11:22→17:59)
[2023-02-03] MEDS ORDERED: ALBUTEROL 90 MCG/ACT 8GM HFA INHALER INH PRN (11:35)
[2023-02-03] MEDS ORDERED: NICOTINE 21MG/24HR 1 EA TRANSDERMAL TD PRN (11:35)
[2023-02-03] MEDS ORDERED: INFLUENZA QUADRIVALENT PF VACCINE 0.5ML SYRINGE IM.IMMUN ONE (12:00)
[2023-02-03 16:27] VITALS: BP 122/75; TEMP 97.4; O2SAT 100
[2023-02-03] MEDS: MOM 30ML SUSPENSION UDC PO PRN (18:43)
[2023-02-03] MEDS: MAALOX 30 ML SUSP *UDC PO PRN (18:43)
[2023-02-03] MEDS: DIVALPROEX 500MG *ER* TAB PO SCH (20:04)
[2023-02-03] MEDS: QUEtiapine FUMARATE 100 MG TAB PO SCH (20:04)
[2023-02-03] MEDS: OLANZapine 5 MG TAB PO SCH (20:04)
[2023-02-03] MEDS: metroNIDAZOLE (FLAGYL) 500MG TABLET PO SCH (21:32)
[2023-02-04] MEDS: diphenhydrAMINE 25MG CAP PO PRN ×2 (00:44→07:41)
[2023-02-04] MEDS: traZODone 50 MG TAB PO PRN ×2 (00:44→20:03)
[2023-02-04] MEDS: MAALOX 30 ML SUSP *UDC PO PRN ×2 (04:26→14:20)
[2023-02-04] MEDS: ACETAMINOPHEN TAB 650MG DOSE (2X325MG) PO PRN (05:20)
[2023-02-04 06:15] VITALS: BP 125/63; TEMP 97; O2SAT 98
[2023-02-04] MEDS: NICOTINE 21MG/24HR 1 EA TRANSDERMAL TD PRN (07:55)
[2023-02-04] MEDS: DIVALPROEX 500MG *ER* TAB PO SCH ×2 (08:55→20:03)
[2023-02-04] MEDS: metroNIDAZOLE (FLAGYL) 500MG TABLET PO SCH ×2 (08:56→20:02)
[2023-02-04] MEDS: MUPIROCIN 2% OINT 22 GM TUBE TOP SCH ×2 (08:57→20:03)
[2023-02-04 18:31] VITALS: BP 146/81; TEMP 96.6
[2023-02-04] MEDS: OLANZapine 5 MG TAB PO SCH (20:02)
[2023-02-04] MEDS: QUEtiapine FUMARATE 100 MG TAB PO SCH (20:03)
[2023-02-05] MEDS: diphenhydrAMINE 25MG CAP PO PRN (03:56)
[2023-02-05 06:12] VITALS: BP 152/90; TEMP 97; O2SAT 96
[2023-02-05] MEDS: DIVALPROEX 500MG *ER* TAB PO SCH (08:04)
[2023-02-05] MEDS: NICOTINE 21MG/24HR 1 EA TRANSDERMAL TD PRN (08:04)
[2023-02-05] MEDS: metroNIDAZOLE (FLAGYL) 500MG TABLET PO SCH (08:04)
[2023-02-05] MEDS: MUPIROCIN 2% OINT 22 GM TUBE TOP SCH (08:06)
[2023-02-05] MEDS ORDERED: QUET100T2 PO (09:10)
[2023-02-05] MEDS ORDERED: METR-265 PO (09:10)
[2023-02-05] MEDS: MOM 30ML SUSPENSION UDC PO PRN (09:36)
== END 2023-02-05 10:35 | disposition home or self-care (01) | DRG 753 ==
LOC: M ED 12:27 → M ED INP 18:46 → M PSY 22:46
PROVIDERS: ADMIT Student in an Organized Health Care Education/Training Program; ATTEND Student in an Organized Health Care Education/Training Program
DX: F31.9 Bipolar disorder, unspecified (principal); Z68.41 Body mass index [BMI] 40.0-44.9, adult; E66.01 Morbid (severe) obesity due to excess calories; F12.10 Cannabis abuse, uncomplicated; J45.909 Unspecified asthma, uncomplicated; F90.9 Attention-deficit hyperactivity disorder, unspecified type; F16.10 Hallucinogen abuse, uncomplicated; F17.290 Nicotine dependence, other tobacco product, uncomplicated; N76.0 Acute vaginitis; Z56.0 Unemployment, unspecified; Z79.899 Other long term (current) drug therapy

== ENCOUNTER 2023-02-08 07:24 | Emergency (ER) | payer OTHER ==
[2023-02-08 08:23] LABS: HEMATOCRIT 42.4 % (36.0-47.0); HEMOGLOBIN 14.1 g/dl (12.0-15.5); MEAN CORPUSCULAR HEMOGLOBIN 30.9 pg (27.0-33.0); MEAN CORPUSCULAR HGB CONC 33.3 g/dl (32.0-36.5); MEAN CORPUSCULAR VOLUME 92.8 fl (80.0-96.0); PLATELET COUNT, AUTOMATED 322 10^3/uL (150-450); RED BLOOD COUNT 4.57 10^6/uL (4.00-5.40)
[2023-02-08 08:41] LABS: AMPHETAMINES LEVEL URINE NEGATIVE (NEGATIVE); BARBITURATES URINE NEGATIVE (NEGATIVE); BENZODIAZEPINES URINE NEGATIVE (NEGATIVE); COCAINE METABOLITE URINE NEGATIVE (NEGATIVE)
[2023-02-08 08:42] LABS: METHADONE URINE NEGATIVE (NEGATIVE); OPIATES URINE NEGATIVE (NEGATIVE); PHENCYCLIDINE URINE NEGATIVE (NEGATIVE)
[2023-02-08 08:43] LABS: VALPROIC ACID (DEPAKOTE) 81.5 UG/ML (50.0-100.0)
[2023-02-08 08:44] LABS: ETHYL ALCOHOL (ETHANOL) < 0.003 % (0.000-0.010); HCG, SERUM QUALITATIVE NEGATIVE (NEGATIVE); SALICYLATE LEVEL < 3.0 MG/DL (<30)
[2023-02-08 08:46] LABS: ALKALINE PHOSPHATASE 83 U/L (46-116); ALT/SGPT 18 U/L (7.0-40); AST/SGOT 16 U/L (<34); BILIRUBIN,DIRECT 0.2 MG/DL (<0.4); BILIRUBIN,TOTAL 0.6 MG/DL (0.3-1.2); BLOOD UREA NITROGEN 18 MG/DL (9-23); CALCIUM LEVEL 9.2 MG/DL (8.5-10.1); CARBON DIOXIDE LEVEL 24 MMOL/L (20-31); CHLORIDE LEVEL 105 MMOL/L (98-107); CREATININE FOR GFR 1.14 MG/DL (0.55-1.30); GLOMERULAR FILTRATION RATE 58.4 (>60); GLUCOSE, FASTING 81 MG/DL (60-100); SODIUM LEVEL 142 MMOL/L (136-145); TOTAL PROTEIN 6.9 G/DL (5.7-8.2)
[2023-02-08 08:47] LABS: CANNABINOIDS URINE POSITIVE (NEGATIVE); THYROID STIMULATING HORMONE 3.167 uIU/ML (0.55-4.78)
[2023-02-08 13:55] VITALS: BP 155/81; TEMP 97.7; O2SAT 97
== END 2023-02-08 14:04 | disposition home or self-care (01) ==
LOC: M ED 07:24
DX: F31.9 Bipolar disorder, unspecified (principal); F12.90 Cannabis use, unspecified, uncomplicated; F16.10 Hallucinogen abuse, uncomplicated; J45.909 Unspecified asthma, uncomplicated; Z91.419 Personal history of unspecified adult abuse; Z83.3 Family history of diabetes mellitus; Z84.1 Family history of disorders of kidney and ureter; Z81.8 Family history of other mental and behavioral disorders; Z79.899 Other long term (current) drug therapy; F17.200 Nicotine dependence, unspecified, uncomplicated

== ENCOUNTER 2023-02-09 15:57 | Inpatient (IN) | payer OTHER ==
[~2023-02-09] VITALS: Ht 167.6 cm; Wt 113.5 kg
[2023-02-09] MEDS ORDERED: MED REC IN PROGRESS XX SCH ×2 (16:20→21:25)
[2023-02-09] MEDS ORDERED: OLANZapine ORAL DISINTEGRATING TAB 5MG PO ONE ×2 (16:30→23:45)
[2023-02-09 16:57] LABS: HEMATOCRIT 38.9 % (36.0-47.0); HEMOGLOBIN 13.1 g/dl (12.0-15.5); MEAN CORPUSCULAR HGB CONC 33.7 g/dl (32.0-36.5); PLATELET COUNT, AUTOMATED 303 10^3/uL (150-450); RED BLOOD COUNT 4.23 10^6/uL (4.00-5.40); WHITE BLOOD COUNT 9.9 10^3/uL (4.0-10.0)
[2023-02-09 17:16] LABS: AMPHETAMINES LEVEL URINE NEGATIVE (NEGATIVE); BARBITURATES URINE NEGATIVE (NEGATIVE); BENZODIAZEPINES URINE NEGATIVE (NEGATIVE); COCAINE METABOLITE URINE NEGATIVE (NEGATIVE); METHADONE URINE NEGATIVE (NEGATIVE); OPIATES URINE NEGATIVE (NEGATIVE); PHENCYCLIDINE URINE NEGATIVE (NEGATIVE)
[2023-02-09 17:18] LABS: ETHYL ALCOHOL (ETHANOL) 0.004 % (0.000-0.010); VALPROIC ACID (DEPAKOTE) 69.3 UG/ML (50.0-100.0)
[2023-02-09 17:19] LABS: CANNABINOIDS URINE POSITIVE (NEGATIVE); SALICYLATE LEVEL < 3.0 MG/DL (<30)
[2023-02-09 17:22] LABS: THYROID STIMULATING HORMONE 1.095 uIU/ML (0.55-4.78)
[2023-02-09 17:24] LABS: ALBUMIN 3.3 G/DL (3.2-5.2); ALKALINE PHOSPHATASE 71 U/L (46-116); ALT/SGPT 15 U/L (7.0-40); AST/SGOT 17 U/L (<34); BILIRUBIN,DIRECT 0.1 MG/DL (<0.4); BILIRUBIN,TOTAL 0.3 MG/DL (0.3-1.2); BLOOD UREA NITROGEN 14 MG/DL (9-23); CALCIUM LEVEL 8.8 MG/DL (8.5-10.1); CARBON DIOXIDE LEVEL 25 MMOL/L (20-31); CHLORIDE LEVEL 107 MMOL/L (98-107); CREATININE FOR GFR 0.77 MG/DL (0.55-1.30); GLOMERULAR FILTRATION RATE > 60.0 (>60); GLUCOSE, FASTING 109 MG/DL (60-100); POTASSIUM SERUM 4.1 MMOL/L (3.5-5.1); SODIUM LEVEL 143 MMOL/L (136-145); TOTAL PROTEIN 6.1 G/DL (5.7-8.2)
[2023-02-09 17:43] LABS: HCG, SERUM QUALITATIVE NEGATIVE (NEGATIVE)
[2023-02-09] MEDS ORDERED: ACETAMINOPHEN TAB 650MG DOSE (2X325MG) PO ONE (19:40)
[2023-02-09] MEDS ORDERED: QUEtiapine FUMARATE 100 MG TAB PO ONE (20:10)
[2023-02-09] MEDS ORDERED: diphenhydrAMINE 50MG/ML VIAL IM STA (20:32)
[2023-02-09] MEDS ORDERED: QUEtiapine FUMARATE 100 MG TAB PO SCH (21:00)
[2023-02-09] MEDS ORDERED: OLANZapine 5 MG TAB PO SCH (21:00)
[2023-02-10] MEDS: DIVALPROEX 500MG *ER* TAB PO SCH ×3 (00:05→20:49)
[2023-02-10] MEDS: hydrOXYzine 50 MG TAB PO SCH ×3 (00:06→20:49)
[2023-02-10] MEDS: traZODone 50 MG TAB PO PRN ×2 (00:23→20:49)
[2023-02-10] MEDS: ACETAMINOPHEN TAB 650MG DOSE (2X325MG) PO PRN ×2 (06:57→15:32)
[2023-02-10] MEDS ORDERED: diphenhydrAMINE 50MG CAP PO ONE (08:15)
[2023-02-10] MEDS ORDERED: LORazepam 2 MG TAB PO ONE (08:15)
[2023-02-10] MEDS ORDERED: hydrOXYzine 50 MG TAB PO SCH (09:00)
[2023-02-10] MEDS: NICOTINE 21MG/24HR 1 EA TRANSDERMAL TD SCH (09:00)
[2023-02-10] MEDS ORDERED: DIVALPROEX 500MG *ER* TAB PO SCH (09:00)
[2023-02-10] MEDS ORDERED: HOME MED LIST COMPLETE! XX SCH (09:15)
[2023-02-10] MEDS: MOM 30ML SUSPENSION UDC PO PRN (15:32)
[2023-02-10] MEDS: diphenhydrAMINE 25MG CAP PO PRN ×2 (16:08→23:01)
[2023-02-10] MEDS: IBUPROFEN 400MG TAB PO PRN (16:09)
[2023-02-10] MEDS: OLANZapine ORAL DISINTEGRATING TAB 5MG PO PRN ×2 (16:09→23:01)
[2023-02-10] MEDS: QUEtiapine FUMARATE 100 MG TAB PO SCH (20:49)
[2023-02-10] MEDS: OLANZapine 5 MG TAB PO SCH (20:50)
[2023-02-10] MEDS ORDERED: LORazepam 2 MG/ML 1ML VIAL IM STA (23:48)
[2023-02-10] MEDS ORDERED: diphenhydrAMINE 50MG/ML VIAL IM STA (23:48)
[2023-02-10] MEDS ORDERED: HALOPERIDOL 5MG/ML 1ML VIAL IM STA (23:48)
[2023-02-11 00:15] VITALS: BP 110/64; TEMP 97.1; O2SAT 97
[2023-02-11] MEDS: NICOTINE 21MG/24HR 1 EA TRANSDERMAL TD SCH (09:25)
[2023-02-11] MEDS: DIVALPROEX 500MG *ER* TAB PO SCH ×2 (09:25→20:04)
[2023-02-11] MEDS: hydrOXYzine 50 MG TAB PO SCH ×2 (09:25→20:06)
[2023-02-11] MEDS ORDERED: TUBERCULIN PPD 5 UNITS/0.1 ML ID ONE (11:00)
[2023-02-11] MEDS: OLANZapine ORAL DISINTEGRATING TAB 5MG PO PRN ×2 (12:57→18:40)
[2023-02-11] MEDS: MOM 30ML SUSPENSION UDC PO PRN (12:58)
[2023-02-11] MEDS: diphenhydrAMINE 25MG CAP PO PRN (14:26)
[2023-02-11 16:15] VITALS: BP 130/80; TEMP 96.9; O2SAT 94
[2023-02-11] MEDS: OLANZapine 5 MG TAB PO SCH (20:06)
[2023-02-11] MEDS: QUEtiapine FUMARATE 100 MG TAB PO SCH (20:06)
[2023-02-12 06:24] VITALS: BP 133/79; TEMP 97.1; O2SAT 96
[2023-02-12] MEDS: OLANZapine ORAL DISINTEGRATING TAB 5MG PO PRN ×2 (07:36→17:36)
[2023-02-12] MEDS: NICOTINE 21MG/24HR 1 EA TRANSDERMAL TD SCH (08:08)
[2023-02-12] MEDS: hydrOXYzine 50 MG TAB PO SCH ×2 (08:08→20:26)
[2023-02-12] MEDS: DIVALPROEX 500MG *ER* TAB PO SCH ×2 (08:08→20:28)
[2023-02-12] MEDS: diphenhydrAMINE 25MG CAP PO PRN ×2 (11:00→20:26)
[2023-02-12] MEDS: MAALOX 30 ML SUSP *UDC PO PRN (14:27)
[2023-02-12 15:45] VITALS: BP 140/80; TEMP 96.9; O2SAT 99
[2023-02-12] MEDS: OLANZapine 5 MG TAB PO SCH (20:26)
[2023-02-12] MEDS: QUEtiapine FUMARATE 100 MG TAB PO SCH (20:27)
[2023-02-12] MEDS: IBUPROFEN 400MG TAB PO PRN (20:27)
[2023-02-13 05:59] VITALS: BP 143/64; TEMP 96.8; O2SAT 97
[2023-02-13] MEDS: OLANZapine ORAL DISINTEGRATING TAB 5MG PO PRN (06:47)
[2023-02-13] MEDS: hydrOXYzine 50 MG TAB PO SCH ×2 (08:16→20:00)
[2023-02-13] MEDS: DIVALPROEX 500MG *ER* TAB PO SCH ×2 (08:16→20:00)
[2023-02-13] MEDS: NICOTINE 21MG/24HR 1 EA TRANSDERMAL TD SCH (08:17)
[2023-02-13] MEDS ORDERED: PPD DOCUMENTATION ENTRY MISC XX ONE (11:00)
[2023-02-13] MEDS ORDERED: TUBERCULIN PPD 5 UNITS/0.1 ML ID ONE (15:00)
[2023-02-13 18:29] VITALS: BP 145/75; TEMP 97.9
[2023-02-13] MEDS: OLANZapine 5 MG TAB PO SCH (20:00)
[2023-02-13] MEDS: QUEtiapine FUMARATE 100 MG TAB PO SCH (20:00)
[2023-02-13] MEDS: MOM 30ML SUSPENSION UDC PO PRN (21:18)
[2023-02-13] MEDS: traZODone 50 MG TAB PO PRN (22:14)
[2023-02-14] MEDS: diphenhydrAMINE 25MG CAP PO PRN ×2 (03:15→12:44)
[2023-02-14 05:56] VITALS: BP 130/83; TEMP 97.3; O2SAT 96
[2023-02-14] MEDS: DIVALPROEX 500MG *ER* TAB PO SCH ×2 (08:55→20:34)
[2023-02-14] MEDS: OLANZapine ORAL DISINTEGRATING TAB 5MG PO PRN (08:55)
[2023-02-14] MEDS: hydrOXYzine 50 MG TAB PO SCH ×2 (08:55→20:35)
[2023-02-14] MEDS: NICOTINE 21MG/24HR 1 EA TRANSDERMAL TD SCH (08:56)
[2023-02-14] MEDS: MAALOX 30 ML SUSP *UDC PO PRN (15:57)
[2023-02-14 18:00] VITALS: BP 135/83; TEMP 97.3
[2023-02-14] MEDS: QUEtiapine FUMARATE 100 MG TAB PO SCH (20:34)
[2023-02-14] MEDS: traZODone 50 MG TAB PO PRN (20:34)
[2023-02-14] MEDS: OLANZapine 5 MG TAB PO SCH (20:35)
[2023-02-15] MEDS: OLANZapine ORAL DISINTEGRATING TAB 5MG PO PRN (05:51)
[2023-02-15 06:27] VITALS: BP 133/90; TEMP 97; O2SAT 97
[2023-02-15] MEDS: DIVALPROEX 500MG *ER* TAB PO SCH ×2 (08:31→19:55)
[2023-02-15] MEDS: NICOTINE 21MG/24HR 1 EA TRANSDERMAL TD SCH (08:31)
[2023-02-15] MEDS: hydrOXYzine 50 MG TAB PO SCH ×2 (08:31→19:55)
[2023-02-15] MEDS ORDERED: PPD DOCUMENTATION ENTRY MISC XX SCH (15:00)
[2023-02-15 15:59] VITALS: BP 118/64; TEMP 98; O2SAT 100
[2023-02-15] MEDS: MOM 30ML SUSPENSION UDC PO PRN (19:55)
[2023-02-15] MEDS: OLANZapine 5 MG TAB PO SCH (19:55)
[2023-02-15] MEDS: traZODone 50 MG TAB PO PRN (19:55)
[2023-02-15] MEDS: QUEtiapine FUMARATE 100 MG TAB PO SCH (19:55)
[2023-02-16 06:15] VITALS: BP 117/56; TEMP 98.5; O2SAT 97
[2023-02-16] MEDS: OLANZapine ORAL DISINTEGRATING TAB 5MG PO PRN ×2 (06:45→17:12)
[2023-02-16] MEDS: diphenhydrAMINE 25MG CAP PO PRN (06:45)
[2023-02-16] MEDS: hydrOXYzine 50 MG TAB PO SCH ×2 (07:35→21:22)
[2023-02-16] MEDS: DIVALPROEX 500MG *ER* TAB PO SCH ×2 (07:35→21:24)
[2023-02-16] MEDS: VITAMIN D 1,000 INTERNATIONAL UNITS TABLET PO SCH (07:35)
[2023-02-16] MEDS: NICOTINE 21MG/24HR 1 EA TRANSDERMAL TD SCH (08:46)
[2023-02-16] MEDS ORDERED: diphenhydrAMINE 50MG CAP PO ONE (09:25)
[2023-02-16 16:10] VITALS: BP 123/85; TEMP 98.2; O2SAT 96
[2023-02-16] MEDS: QUEtiapine FUMARATE 100 MG TAB PO SCH (21:23)
[2023-02-16] MEDS: OLANZapine 5 MG TAB PO SCH (21:23)
[2023-02-17 06:21] VITALS: BP 134/74; TEMP 97.9; O2SAT 97
[2023-02-17] MEDS: NICOTINE 21MG/24HR 1 EA TRANSDERMAL TD SCH ×2 (08:19→09:51)
[2023-02-17] MEDS: DIVALPROEX 500MG *ER* TAB PO SCH (08:20)
[2023-02-17] MEDS: hydrOXYzine 50 MG TAB PO SCH (08:20)
[2023-02-17] MEDS: VITAMIN D 1,000 INTERNATIONAL UNITS TABLET PO SCH (08:20)
[2023-02-17] MEDS: MOM 30ML SUSPENSION UDC PO PRN (08:21)
[2023-02-17] MEDS: OLANZapine ORAL DISINTEGRATING TAB 5MG PO PRN (08:21)
[2023-02-17] MEDS ORDERED: NICO21PAT TD (09:41)
[2023-02-17] MEDS ORDERED: SERO50TA PO (09:41)
[2023-02-17] MEDS ORDERED: BENZ0.5T2 PO (09:42)
== END 2023-02-17 12:31 | disposition home or self-care (01) | DRG 753 ==
LOC: M ED 15:57 → M ED INP 23:11 → M PSY 23:57
PROVIDERS: ADMIT Student in an Organized Health Care Education/Training Program; ATTEND Student in an Organized Health Care Education/Training Program
DX: F31.0 Bipolar disorder, current episode hypomanic (principal); Z68.41 Body mass index [BMI] 40.0-44.9, adult; E66.01 Morbid (severe) obesity due to excess calories; Z78.1 Physical restraint status; F60.3 Borderline personality disorder; F12.10 Cannabis abuse, uncomplicated; F15.10 Other stimulant abuse, uncomplicated; Z56.0 Unemployment, unspecified; J45.909 Unspecified asthma, uncomplicated; F16.10 Hallucinogen abuse, uncomplicated; F17.200 Nicotine dependence, unspecified, uncomplicated

== ENCOUNTER 2023-04-16 21:49 | Emergency (ER) | payer MEDICAID, OTHER ==
[~2023-04-16] VITALS: Ht 170.2 cm; Wt 107.6 kg
[~2023-04-16 21:49] MED LIST changes: +SERO50TA PO
[2023-04-16 22:38] LABS: HEMATOCRIT 43.2 % (36.0-47.0); HEMOGLOBIN 14.9 g/dl (12.0-15.5); MEAN CORPUSCULAR HEMOGLOBIN 30.4 pg (27.0-33.0); MEAN CORPUSCULAR HGB CONC 34.5 g/dl (32.0-36.5); MEAN CORPUSCULAR VOLUME 88.2 fl (80.0-96.0); PLATELET COUNT, AUTOMATED 385 10^3/uL (150-450); WHITE BLOOD COUNT 18.6 10^3/uL (4.0-10.0)
[2023-04-16] MEDS ORDERED: LORazepam 1 MG TAB PO STA (22:47)
[2023-04-16 23:05] LABS: AMPHETAMINES LEVEL URINE NEGATIVE (NEGATIVE); BARBITURATES URINE NEGATIVE (NEGATIVE); BENZODIAZEPINES URINE NEGATIVE (NEGATIVE); COCAINE METABOLITE URINE NEGATIVE (NEGATIVE); HCG, SERUM QUALITATIVE NEGATIVE (NEGATIVE); METHADONE URINE NEGATIVE (NEGATIVE); OPIATES URINE NEGATIVE (NEGATIVE); PHENCYCLIDINE URINE NEGATIVE (NEGATIVE)
[2023-04-16 23:06] LABS: CANNABINOIDS URINE POSITIVE (NEGATIVE); ETHYL ALCOHOL (ETHANOL) 0.004 % (0.000-0.010)
[2023-04-16 23:07] LABS: SALICYLATE LEVEL < 3.0 MG/DL (<30)
[2023-04-16 23:08] LABS: ALBUMIN 4.1 G/DL (3.2-5.2); ALKALINE PHOSPHATASE 74 U/L (46-116); ALT/SGPT 17 U/L (7.0-40); AST/SGOT 20 U/L (<34); BILIRUBIN,DIRECT 0.2 MG/DL (<0.4); BILIRUBIN,TOTAL 0.6 MG/DL (0.3-1.2); BLOOD UREA NITROGEN 11 MG/DL (9-23); CALCIUM LEVEL 9.7 MG/DL (8.5-10.1); CARBON DIOXIDE LEVEL 23 MMOL/L (20-31); CHLORIDE LEVEL 108 MMOL/L (98-107); CREATININE FOR GFR 0.76 MG/DL (0.55-1.30); GLOMERULAR FILTRATION RATE > 60.0 (>60); GLUCOSE, FASTING 100 MG/DL (60-100); POTASSIUM SERUM 3.9 MMOL/L (3.5-5.1); SODIUM LEVEL 141 MMOL/L (136-145); TOTAL PROTEIN 7.2 G/DL (5.7-8.2)
[2023-04-16 23:11] LABS: THYROID STIMULATING HORMONE 1.912 uIU/ML (0.55-4.78)
[2023-04-16 23:41] VITALS: BP 133/84; TEMP 97.9; O2SAT 98
== END 2023-04-16 23:40 | disposition home or self-care (01) ==
LOC: M ED 21:49
DX: F41.9 Anxiety disorder, unspecified (principal); I10 Essential (primary) hypertension; J45.909 Unspecified asthma, uncomplicated; Z79.51 Long term (current) use of inhaled steroids; Z79.899 Other long term (current) drug therapy

== ENCOUNTER 2023-05-01 00:52 | Emergency (ER) | payer MEDICAID, OTHER ==
[~2023-05-01] VITALS: Ht 167.6 cm; Wt 100.0 kg
[2023-05-01] MEDS ORDERED: LORazepam 2 MG TAB PO ONE ×2 (03:00→04:40)
[2023-05-01 03:01] LABS: HEMATOCRIT 38.2 % (36.0-47.0); HEMOGLOBIN 12.7 g/dl (12.0-15.5); MEAN CORPUSCULAR HEMOGLOBIN 30.5 pg (27.0-33.0); MEAN CORPUSCULAR HGB CONC 33.2 g/dl (32.0-36.5); MEAN CORPUSCULAR VOLUME 91.6 fl (80.0-96.0); PLATELET COUNT, AUTOMATED 301 10^3/uL (150-450); RED BLOOD COUNT 4.17 10^6/uL (4.00-5.40)
[2023-05-01 03:23] LABS: AMPHETAMINES LEVEL URINE NEGATIVE (NEGATIVE); BARBITURATES URINE NEGATIVE (NEGATIVE); BENZODIAZEPINES URINE NEGATIVE (NEGATIVE); COCAINE METABOLITE URINE NEGATIVE (NEGATIVE); METHADONE URINE NEGATIVE (NEGATIVE); OPIATES URINE NEGATIVE (NEGATIVE); PHENCYCLIDINE URINE NEGATIVE (NEGATIVE)
[2023-05-01 03:26] LABS: SALICYLATE LEVEL < 3.0 MG/DL (<30)
[2023-05-01 03:27] LABS: ALBUMIN 3.2 G/DL (3.2-5.2); ALKALINE PHOSPHATASE 72 U/L (46-116); ALT/SGPT 22 U/L (7.0-40); AST/SGOT 25 U/L (<34); BILIRUBIN,DIRECT 0.1 MG/DL (<0.4); BILIRUBIN,TOTAL 0.3 MG/DL (0.3-1.2); BLOOD UREA NITROGEN 9 MG/DL (9-23); CALCIUM LEVEL 8.4 MG/DL (8.5-10.1); CARBON DIOXIDE LEVEL 25 MMOL/L (20-31); CHLORIDE LEVEL 108 MMOL/L (98-107); GLOMERULAR FILTRATION RATE > 60.0 (>60); GLUCOSE, FASTING 106 MG/DL (60-100); SODIUM LEVEL 139 MMOL/L (136-145); TOTAL PROTEIN 5.7 G/DL (5.7-8.2)
[2023-05-01 03:28] LABS: CANNABINOIDS URINE POSITIVE (NEGATIVE)
[2023-05-01 03:29] LABS: THYROID STIMULATING HORMONE 1.432 uIU/ML (0.55-4.78)
[2023-05-01 03:42] LABS: HCG, SERUM QUALITATIVE NEGATIVE (NEGATIVE)
[2023-05-01] MEDS ORDERED: LORazepam 2 MG/ML 1ML VIAL IM ONE (04:50)
[2023-05-01] MEDS ORDERED: diphenhydrAMINE 50MG/ML VIAL IM ONE (04:50)
[2023-05-01] MEDS ORDERED: HALOPERIDOL 5MG/ML 1ML VIAL IM ONE (04:50)
[2023-05-01] MEDS ORDERED: MED REC IN PROGRESS XX SCH (08:15)
[2023-05-01] MEDS ORDERED: CLON0.5T2 PO (10:48)
[2023-05-01] MEDS ORDERED: NICO21DI37 TD (10:48)
[2023-05-01] MEDS ORDERED: QUET50TA4 PO (10:48)
[2023-05-01] MEDS ORDERED: MIRT-10 PO (10:48)
[2023-05-01] MEDS ORDERED: RISP-9 PO (10:48)
[2023-05-01] MEDS ORDERED: BENZ0.5T2 PO (10:48)
[2023-05-01] MEDS ORDERED: HOME MED LIST COMPLETE! XX SCH (10:55)
[2023-05-01] MEDS ORDERED: DIVALPROEX 500MG *ER* TAB PO ONE (11:30)
[2023-05-01] MEDS ORDERED: DIVALPROEX 500 MG TAB PO ONE (11:45)
[2023-05-01 13:00] VITALS: BP 128/84; TEMP 97; O2SAT 99
[2023-05-01] MEDS ORDERED: clonazePAM 1 MG TAB PO ONE (13:15)
== END 2023-05-01 13:38 | disposition home or self-care (01) ==
LOC: M ED 00:52
DX: F41.9 Anxiety disorder, unspecified (principal); F17.210 Nicotine dependence, cigarettes, uncomplicated; Z79.899 Other long term (current) drug therapy
CPT/HCPCS: 80048; 80076; 80143; 80307; 82077; 84443; 84703; 85027; 87635; 96372; 99284; J1200; J1630; J2060

== ENCOUNTER 2023-05-25 07:03 | Emergency (ER) | payer OTHER ==
[~2023-05-25] VITALS: Ht 167.6 cm; Wt 107.3 kg
[~2023-05-25 07:03] MED LIST changes: +CLON0.5T2 PO; +MIRT-10 PO; +NICO21DI37 TD
[2023-05-25] MEDS ORDERED: VENTAER (07:24)
[2023-05-25 10:23] LABS: BASO % 0.3 % (0.0-1.0); EOS # 0.2 10^3/uL (0.0-0.5); EOS % 1.4 % (0.0-3.0); HEMATOCRIT 37.2 % (36.0-47.0); LYMPH # 1.9 10^3/uL (1.5-5.0); LYMPH % 17.9 % (24.0-44.0); MEAN CORPUSCULAR HEMOGLOBIN 30.5 pg (27.0-33.0); MEAN CORPUSCULAR HGB CONC 32.3 g/dl (32.0-36.5); MEAN CORPUSCULAR VOLUME 94.7 fl (80.0-96.0); MONO # 0.6 10^3/uL (0.0-0.8); MONO % 5.5 % (2.0-8.0); NEUTROPHILS % 74.5 % (36.0-66.0); PLATELET COUNT, AUTOMATED 271 10^3/uL (150-450); RED BLOOD COUNT 3.93 10^6/uL (4.00-5.40); WHITE BLOOD COUNT 10.7 10^3/uL (4.0-10.0)
[2023-05-25 10:52] LABS: ALBUMIN 3.1 G/DL (3.2-5.2); ALKALINE PHOSPHATASE 78 U/L (46-116); ALT/SGPT 15 U/L (7.0-40); AST/SGOT 11 U/L (<34); BILIRUBIN,DIRECT < 0.1 MG/DL (<0.4); BILIRUBIN,TOTAL 0.2 MG/DL (0.3-1.2); TOTAL PROTEIN 5.4 G/DL (5.7-8.2)
[2023-05-25] MEDS ORDERED: AMOX875T PO (11:58)
[2023-05-25] MEDS ORDERED: FLON1SPR NARES (11:58)
[2023-05-25 12:22] VITALS: BP 119/70; TEMP 97.4; O2SAT 99
== END 2023-05-25 12:22 | disposition home or self-care (01) ==
LOC: EDBD 07:03 → M ED 07:03
DX: J01.90 Acute sinusitis, unspecified (principal); I10 Essential (primary) hypertension; R51.9 Headache, unspecified; K58.9 Irritable bowel syndrome, unspecified; F31.9 Bipolar disorder, unspecified; Z79.899 Other long term (current) drug therapy; Z79.51 Long term (current) use of inhaled steroids

== ENCOUNTER 2023-06-16 04:33 | Emergency (ER) | payer OTHER ==
[~2023-06-16 04:33] MED LIST changes: +AMOX875T PO; +FLON1SPR NARES; +RISP-106 PO; -RISP-9 PO; +VENTAER INH
[2023-06-16] MEDS: LORazepam 2 MG TAB PO STA (04:57)
[2023-06-16 05:06] VITALS: TEMP 97.6
[2023-06-16] MEDS: ACETAMINOPHEN TAB 650MG DOSE (2X325MG) PO ONE (06:04)
[2023-06-16] MEDS ORDERED: CLON0.5T2 PO (06:31)
[2023-06-16] MEDS ORDERED: DIVA500T9 PO (06:31)
[2023-06-16 06:38] VITALS: BP 122/74; O2SAT 99
[2023-06-17] MEDS ORDERED: CLON1TAB8 PO (14:54)
[2023-06-17] MEDS ORDERED: DEPA1TAB3 PO (14:54)
== END 2023-06-16 06:39 | disposition home or self-care (01) ==
LOC: M ED 04:33
DX: F41.0 Panic disorder [episodic paroxysmal anxiety] (principal); Z91.148 Patient's other noncompliance with medication regimen for other reason; F32.A Depression, unspecified; F90.9 Attention-deficit hyperactivity disorder, unspecified type; F17.210 Nicotine dependence, cigarettes, uncomplicated; F10.10 Alcohol abuse, uncomplicated; F16.20 Hallucinogen dependence, uncomplicated; Z79.51 Long term (current) use of inhaled steroids; Z79.899 Other long term (current) drug therapy

== ENCOUNTER 2023-06-17 07:43 | Inpatient (IN) | payer OTHER ==
[~2023-06-17] VITALS: Ht 170.2 cm; Wt 109.1 kg
[2023-06-17] MEDS: NS 1,000 ML IV ONE (08:15)
[2023-06-17] MEDS: LORazepam 2 MG/ML 1ML VIAL IV STA ×3 (11:03→16:41)
[2023-06-17] MEDS: OLANZapine ORAL DISINTEGRATING TAB 5MG PO ONE (13:14)
[2023-06-17] MEDS ORDERED: CLON1TAB8 PO (14:54)
[2023-06-17] MEDS ORDERED: DEPA1TAB3 PO (14:54)
[2023-06-17] MEDS ORDERED: HOME MED LIST COMPLETE! XX SCH (14:55)
[2023-06-17 17:53] LABS: HEMATOCRIT 38.8 % (36.0-47.0); HEMOGLOBIN 13.3 g/dl (12.0-15.5); MEAN CORPUSCULAR HEMOGLOBIN 31.1 pg (27.0-33.0); MEAN CORPUSCULAR HGB CONC 34.3 g/dl (32.0-36.5); MEAN CORPUSCULAR VOLUME 90.7 fl (80.0-96.0); PLATELET COUNT, AUTOMATED 264 10^3/uL (150-450); RED BLOOD COUNT 4.28 10^6/uL (4.00-5.40); WHITE BLOOD COUNT 8.5 10^3/uL (4.0-10.0)
[2023-06-17 18:18] LABS: AMPHETAMINES LEVEL URINE NEGATIVE (NEGATIVE)
[2023-06-17 18:19] LABS: BARBITURATES URINE NEGATIVE (NEGATIVE); BENZODIAZEPINES URINE NEGATIVE (NEGATIVE); COCAINE METABOLITE URINE NEGATIVE (NEGATIVE); METHADONE URINE NEGATIVE (NEGATIVE); OPIATES URINE NEGATIVE (NEGATIVE); PHENCYCLIDINE URINE NEGATIVE (NEGATIVE)
[2023-06-17 18:20] LABS: CANNABINOIDS URINE POSITIVE (NEGATIVE)
[2023-06-17 18:22] LABS: ETHYL ALCOHOL (ETHANOL) < 0.003 % (0.000-0.010)
[2023-06-17 18:23] LABS: ALBUMIN 3.4 G/DL (3.2-5.2); ALKALINE PHOSPHATASE 57 U/L (46-116); ALT/SGPT 20 U/L (7.0-40); AST/SGOT 12 U/L (<34); BILIRUBIN,DIRECT 0.3 MG/DL (<0.4); BLOOD UREA NITROGEN 10 MG/DL (9-23); CALCIUM LEVEL 8.3 MG/DL (8.5-10.1); CARBON DIOXIDE LEVEL 24 MMOL/L (20-31); CHLORIDE LEVEL 110 MMOL/L (98-107); CREATININE FOR GFR 0.65 MG/DL (0.55-1.30); GLOMERULAR FILTRATION RATE > 60.0 (>60); GLUCOSE, FASTING 87 MG/DL (60-100); SALICYLATE LEVEL < 3.0 MG/DL (<30); SODIUM LEVEL 139 MMOL/L (136-145); TOTAL PROTEIN 5.8 G/DL (5.7-8.2)
[2023-06-17] MEDS ORDERED: traZODone 50 MG TAB PO PRN (18:25)
[2023-06-17] MEDS ORDERED: MOM 30ML SUSPENSION UDC PO PRN (18:25)
[2023-06-17] MEDS ORDERED: MAALOX 30 ML SUSP *UDC PO PRN (18:25)
[2023-06-17 18:26] LABS: THYROID STIMULATING HORMONE 0.484 uIU/ML (0.55-4.78)
[2023-06-17] MEDS: diphenhydrAMINE 50MG/ML VIAL IM ONE (20:32)
[2023-06-17] MEDS: HALOPERIDOL 5MG/ML 1ML VIAL IM ONE (20:32)
[2023-06-17] MEDS: LORazepam 2 MG/ML 1ML VIAL IM ONE (20:35)
[2023-06-17 22:16] VITALS: BP 136/75; TEMP 98.8; O2SAT 98
[2023-06-18] MEDS: ACETAMINOPHEN TAB 650MG DOSE (2X325MG) PO PRN (03:25)
[2023-06-18] MEDS: diphenhydrAMINE 25MG CAP PO PRN (08:13)
[2023-06-18] MEDS: OLANZapine ORAL DISINTEGRATING TAB 5MG PO PRN (08:13)
[2023-06-18] MEDS: IBUPROFEN 400MG TAB PO PRN (08:17)
[2023-06-18] MEDS ORDERED: ABIL400I IM (10:16)
[2023-06-18] MEDS ORDERED: ABIL1TAB11 PO (10:16)
[2023-06-18] MEDS ORDERED: BENZ1LOZ9 PO (10:16)
[2023-06-18] MEDS ORDERED: DEPA1TAB3 PO (10:16)
[2023-06-18] MEDS: ACETAMINOPHEN 500 MG TAB PO ONE (10:23)
[2023-06-18] MEDS: CETIRIZINE (ZyrTEC) 10 MG TAB PO ONE (10:23)
[2023-06-18] MEDS: CEPACOL LOZENGE PO ONE (10:23)
[2023-06-18] MEDS: guaiFENesin ER TABLET 600 MG TAB PO SCH (10:24)
[2023-06-18] MEDS: FLUTICASONE PROP 0.05% NASAL SPRAY 16 GM (FLONASE) NARES SCH (10:49)
[2023-06-18] MEDS: ARIPiprazole MONOHYDRATE 400 MG INJ (ABILIFY)(FREE PSY INPT ONLY) IM ONE (12:08)
[2023-06-18] MEDS: CEPACOL LOZENGE PO PRN (13:39)
[2023-06-18] MEDS ORDERED: ZYPR5TAB31 PO (15:07)
[2023-06-19] MEDS ORDERED: CETIRIZINE (ZyrTEC) 10 MG TAB PO SCH (09:00)
== END 2023-06-18 13:40 | disposition home or self-care (01) | DRG 753 ==
LOC: EDBD 07:43 → M ED 07:43 → M ED INP 18:33 → M PSY 23:29
PROVIDERS: ADMIT Student in an Organized Health Care Education/Training Program; ATTEND Student in an Organized Health Care Education/Training Program
DX: F31.9 Bipolar disorder, unspecified (principal); F60.3 Borderline personality disorder; F43.20 Adjustment disorder, unspecified; Z79.899 Other long term (current) drug therapy; K58.9 Irritable bowel syndrome, unspecified; F17.290 Nicotine dependence, other tobacco product, uncomplicated; M79.671 Pain in right foot

== ENCOUNTER 2023-06-28 13:27 | Emergency (ER) | payer MEDICAID, OTHER ==
[~2023-06-28] VITALS: Ht 167.6 cm; Wt 107.7 kg
[~2023-06-28 13:27] MED LIST changes: +ABIL400I IM; +BENZ1LOZ9 PO; +CLON1TAB8 PO; +ZYPR5TAB31 PO
[2023-06-28 14:32] LABS: HEMATOCRIT 40.8 % (36.0-47.0); HEMOGLOBIN 13.6 g/dl (12.0-15.5); MEAN CORPUSCULAR HEMOGLOBIN 31.2 pg (27.0-33.0); MEAN CORPUSCULAR HGB CONC 33.3 g/dl (32.0-36.5); MEAN CORPUSCULAR VOLUME 93.6 fl (80.0-96.0); PLATELET COUNT, AUTOMATED 305 10^3/uL (150-450); RED BLOOD COUNT 4.36 10^6/uL (4.00-5.40); WHITE BLOOD COUNT 11.3 10^3/uL (4.0-10.0)
[2023-06-28] MEDS ORDERED: CLON0.5T2 PO (14:40)
[2023-06-28 14:56] LABS: AMPHETAMINES LEVEL URINE NEGATIVE (NEGATIVE); BARBITURATES URINE NEGATIVE (NEGATIVE); BENZODIAZEPINES URINE NEGATIVE (NEGATIVE); METHADONE URINE NEGATIVE (NEGATIVE); OPIATES URINE NEGATIVE (NEGATIVE); PHENCYCLIDINE URINE NEGATIVE (NEGATIVE)
[2023-06-28 14:57] LABS: CANNABINOIDS URINE POSITIVE (NEGATIVE); COCAINE METABOLITE URINE POSITIVE (NEGATIVE)
[2023-06-28 14:59] LABS: ETHYL ALCOHOL (ETHANOL) 0.007 % (0.000-0.010)
[2023-06-28 15:00] LABS: SALICYLATE LEVEL 4.7 MG/DL (<30)
[2023-06-28 15:01] LABS: ALBUMIN 3.8 G/DL (3.2-5.2); ALKALINE PHOSPHATASE 63 U/L (46-116); ALT/SGPT < 9 U/L (7.0-40); AST/SGOT < 8 U/L (<34); BILIRUBIN,DIRECT 0.2 MG/DL (<0.4); BILIRUBIN,TOTAL 0.7 MG/DL (0.3-1.2); BLOOD UREA NITROGEN 6 MG/DL (9-23); CALCIUM LEVEL 9.4 MG/DL (8.5-10.1); CARBON DIOXIDE LEVEL 26 MMOL/L (20-31); CHLORIDE LEVEL 107 MMOL/L (98-107); CREATININE FOR GFR 0.69 MG/DL (0.55-1.30); GLOMERULAR FILTRATION RATE > 60.0 (>60); GLUCOSE, FASTING 104 MG/DL (60-100); POTASSIUM SERUM 3.7 MMOL/L (3.5-5.1); SODIUM LEVEL 138 MMOL/L (136-145); TOTAL PROTEIN 6.3 G/DL (5.7-8.2)
[2023-06-28 15:02] LABS: THYROID STIMULATING HORMONE 1.799 uIU/ML (0.55-4.78)
[2023-06-28 16:00] LABS: URINE PREG TEST NEGATIVE (NEGATIVE)
[2023-06-28 16:06] LABS: VALPROIC ACID (DEPAKOTE) 8.8 UG/ML (50.0-100.0)
[2023-06-28] MEDS: ULIPRISTAL ACETATE 30MG TAB (ELLA) PO ONE (16:35)
[2023-06-28 16:40] LABS: HIV 1&2 SCREEN NEGATIVE (NEGATIVE)
[2023-06-28 16:55] LABS: HEPATITIS B SURFACE ANTIBODY NEGATIVE (POSITIVE)
[2023-06-28 17:29] LABS: HEPATITIS C VIRUS ABY INDEX 0.03 INDEX (<0.8)
[2023-06-28] MEDS: LORazepam 0.5 MG TAB PO ONE (17:35)
[2023-06-28] MEDS: AZITHROMYCIN 250MG TABLET PO ONE (17:36)
[2023-06-28] MEDS: metroNIDAZOLE (FLAGYL) 500MG TABLET PO ONE (17:39)
[2023-06-28] MEDS: LIDOCAINE 1% SDV 5ML VIAL DILUENT ONE (17:40)
[2023-06-28] MEDS: cefTRIAXone 500MG VIAL IM ONE (17:40)
[2023-06-28 17:42] LABS: GC DNA AMPLIFICATION NEGATIVE (NEGATIVE)
[2023-06-28] MEDS: HEPATITIS B VACCINE 20MCG/ML 1ML SYRINGE (ADULT DOSE) IM.IMMUN ONE (17:52)
[2023-06-28 18:19] VITALS: BP 135/79; TEMP 96.6; O2SAT 100
== END 2023-06-28 20:02 | disposition home or self-care (01) ==
LOC: M ED 14:24
DX: T76.21XA Adult sexual abuse, suspected, initial encounter (principal); F31.9 Bipolar disorder, unspecified; F90.9 Attention-deficit hyperactivity disorder, unspecified type; J45.909 Unspecified asthma, uncomplicated; F17.200 Nicotine dependence, unspecified, uncomplicated; Z23 Encounter for immunization
CPT/HCPCS: 36415; 80048; 80076; 80143; 80164; 80307; 82077; 84443; 84703; 85027; 86706; 86780; 86803; 87340; 87389; 87635; 87810; 87850; 90471; 90746; 96372; 99284; J0696

== ENCOUNTER 2023-07-29 09:01 | Emergency (ER) | payer OTHER ==
[~2023-07-29] VITALS: Ht 172.7 cm; Wt 101.5 kg
[2023-07-29 09:02] VITALS: BP 146/72; TEMP 96.2; O2SAT 97
[2023-07-29] MEDS ORDERED: LITH300C PO (09:13)
[2023-07-29] MEDS ORDERED: OLAN1TAB20 PO (09:13)
[2023-07-29 11:04] LABS: HEMATOCRIT 41.1 % (36.0-47.0); HEMOGLOBIN 13.6 g/dl (12.0-15.5); MEAN CORPUSCULAR HEMOGLOBIN 31.1 pg (27.0-33.0); MEAN CORPUSCULAR HGB CONC 33.1 g/dl (32.0-36.5); MEAN CORPUSCULAR VOLUME 93.8 fl (80.0-96.0); PLATELET COUNT, AUTOMATED 254 10^3/uL (150-450); RED BLOOD COUNT 4.38 10^6/uL (4.00-5.40); WHITE BLOOD COUNT 7.2 10^3/uL (4.0-10.0)
[2023-07-29] MEDS: LORazepam 2 MG TAB PO STA (11:23)
[2023-07-29 11:30] LABS: HCG, SERUM QUALITATIVE NEGATIVE (NEGATIVE)
[2023-07-29 11:33] LABS: ETHYL ALCOHOL (ETHANOL) < 0.003 % (0.000-0.010)
[2023-07-29 11:34] LABS: SALICYLATE LEVEL < 3.0 MG/DL (<30)
[2023-07-29 11:35] LABS: ALBUMIN 3.4 G/DL (3.2-5.2); ALKALINE PHOSPHATASE 80 U/L (46-116); ALT/SGPT 20 U/L (7.0-40); AST/SGOT 10 U/L (<34); BILIRUBIN,DIRECT 0.1 MG/DL (<0.4); BILIRUBIN,TOTAL 0.3 MG/DL (0.3-1.2); BLOOD UREA NITROGEN 8 MG/DL (9-23); CALCIUM LEVEL 8.8 MG/DL (8.5-10.1); CARBON DIOXIDE LEVEL 26 MMOL/L (20-31); CHLORIDE LEVEL 110 MMOL/L (98-107); CREATININE FOR GFR 0.77 MG/DL (0.55-1.30); GLOMERULAR FILTRATION RATE > 60.0 (>60); GLUCOSE, FASTING 92 MG/DL (60-100); POTASSIUM SERUM 3.9 MMOL/L (3.5-5.1); SODIUM LEVEL 141 MMOL/L (136-145)
[2023-07-29 11:37] LABS: BARBITURATES URINE NEGATIVE (NEGATIVE); BENZODIAZEPINES URINE NEGATIVE (NEGATIVE); COCAINE METABOLITE URINE NEGATIVE (NEGATIVE); METHADONE URINE NEGATIVE (NEGATIVE); OPIATES URINE NEGATIVE (NEGATIVE); PHENCYCLIDINE URINE NEGATIVE (NEGATIVE)
[2023-07-29 11:37] LABS: THYROID STIMULATING HORMONE 1.205 uIU/ML (0.55-4.78)
[2023-07-29 11:48] LABS: AMPHETAMINES LEVEL URINE POSITIVE (NEGATIVE); CANNABINOIDS URINE POSITIVE (NEGATIVE)
[2023-07-29 11:52] LABS: LITHIUM LEVEL 0.15 MMOL/L (1.0-1.20)
== END 2023-07-29 16:56 | disposition home or self-care (01) ==
LOC: M ED 09:01
DX: F31.9 Bipolar disorder, unspecified (principal); J45.909 Unspecified asthma, uncomplicated; K58.9 Irritable bowel syndrome, unspecified; F17.210 Nicotine dependence, cigarettes, uncomplicated; F12.10 Cannabis abuse, uncomplicated; Z79.899 Other long term (current) drug therapy

== ENCOUNTER 2023-07-31 05:54 | Inpatient (IN) | payer OTHER ==
[~2023-07-31] VITALS: Ht 170.2 cm; Wt 100.0 kg
[~2023-07-31 05:54] MED LIST changes: +LITH300C PO; +OLAN1TAB20 PO
[2023-07-31] MEDS: LORazepam 2 MG TAB PO STA ×3 (06:13→15:22)
[2023-07-31 06:37] LABS: HEMATOCRIT 40.4 % (36.0-47.0); HEMOGLOBIN 13.8 g/dl (12.0-15.5); MEAN CORPUSCULAR HGB CONC 34.2 g/dl (32.0-36.5); MEAN CORPUSCULAR VOLUME 90.8 fl (80.0-96.0); PLATELET COUNT, AUTOMATED 278 10^3/uL (150-450); RED BLOOD COUNT 4.45 10^6/uL (4.00-5.40); WHITE BLOOD COUNT 10.3 10^3/uL (4.0-10.0)
[2023-07-31 06:57] LABS: HCG, SERUM QUALITATIVE NEGATIVE (NEGATIVE)
[2023-07-31 07:05] LABS: ALBUMIN 3.9 G/DL (3.2-5.2); ALKALINE PHOSPHATASE 93 U/L (46-116); ALT/SGPT 19 U/L (7.0-40); AST/SGOT 12 U/L (<34); BILIRUBIN,DIRECT < 0.1 MG/DL (<0.4); BILIRUBIN,TOTAL 0.2 MG/DL (0.3-1.2); BLOOD UREA NITROGEN 13 MG/DL (9-23); CALCIUM LEVEL 9.1 MG/DL (8.5-10.1); CARBON DIOXIDE LEVEL 26 MMOL/L (20-31); CHLORIDE LEVEL 106 MMOL/L (98-107); CREATININE FOR GFR 0.89 MG/DL (0.55-1.30); GLOMERULAR FILTRATION RATE > 60.0 (>60); GLUCOSE, FASTING 90 MG/DL (60-100); POTASSIUM SERUM 3.8 MMOL/L (3.5-5.1); SODIUM LEVEL 139 MMOL/L (136-145); THYROID STIMULATING HORMONE 2.286 uIU/ML (0.55-4.78); TOTAL PROTEIN 6.4 G/DL (5.7-8.2)
[2023-07-31 07:08] LABS: AMPHETAMINES LEVEL URINE NEGATIVE (NEGATIVE); BARBITURATES URINE NEGATIVE (NEGATIVE); BENZODIAZEPINES URINE NEGATIVE (NEGATIVE); COCAINE METABOLITE URINE NEGATIVE (NEGATIVE); METHADONE URINE NEGATIVE (NEGATIVE); OPIATES URINE NEGATIVE (NEGATIVE); PHENCYCLIDINE URINE NEGATIVE (NEGATIVE)
[2023-07-31 07:10] LABS: CANNABINOIDS URINE POSITIVE (NEGATIVE)
[2023-07-31] MEDS ORDERED: CLON-412 PO (11:04)
[2023-07-31] MEDS ORDERED: HOME MED LIST COMPLETE! XX SCH (11:05)
[2023-07-31] MEDS: NICOTINE 21MG/24HR 1 EA TRANSDERMAL TD STA (15:16)
[2023-07-31] MEDS: diphenhydrAMINE 50MG CAP PO ONE (15:21)
[2023-07-31] MEDS: NICOTINE 21MG/24HR 1 EA TRANSDERMAL TD ONE (15:21)
[2023-07-31] MEDS: OLANZapine ORAL DISINTEGRATING TAB 5MG PO ONE (15:21)
[2023-08-01] MEDS ORDERED: OLANZapine ORAL DISINTEGRATING TAB 5MG PO ONE (09:30)
[2023-08-01] MEDS: LORazepam 2 MG TAB PO STA (09:43)
[2023-08-01 09:44] VITALS: BP 126/80
[2023-08-01] MEDS: cloNIDine 0.1MG TABLET PO PRN (09:44)
[2023-08-01] MEDS: LITHIUM CARBONATE 300 MG CAP PO SCH ×2 (09:45→20:16)
[2023-08-01] MEDS ORDERED: MAALOX 30 ML SUSP *UDC PO PRN (10:30)
[2023-08-01 12:30] VITALS: BP 108/68; TEMP 97.6; O2SAT 98
[2023-08-01] MEDS: diphenhydrAMINE 25MG CAP PO PRN (17:21)
[2023-08-01] MEDS: IBUPROFEN 400MG TAB PO PRN (17:21)
[2023-08-01] MEDS ORDERED: cloNIDine 0.1MG TABLET PO PRN (18:30)
[2023-08-01] MEDS: OLANZapine 10 MG TAB PO SCH (20:16)
[2023-08-01] MEDS: traZODone 50 MG TAB PO PRN (20:16)
[2023-08-01] MEDS: ACETAMINOPHEN TAB 650MG DOSE (2X325MG) PO PRN (20:16)
[2023-08-01] MEDS ORDERED: NICOTINE 21MG/24HR 1 EA TRANSDERMAL TD PRN (20:20)
[2023-08-01] MEDS ORDERED: OLANZapine 10 MG TAB PO SCH (21:00)
[2023-08-01] MEDS: LORazepam 1 MG TAB PO PRN (23:11)
[2023-08-02] MEDS: MOM 30ML SUSPENSION UDC PO PRN (03:51)
[2023-08-02 06:13] VITALS: BP 124/98; TEMP 97.3; O2SAT 97
[2023-08-02] MEDS ORDERED: OLAN1TAB20 PO (08:38)
[2023-08-02] MEDS ORDERED: LITH300C PO (11:49)
== END 2023-08-02 10:49 | disposition home or self-care (01) | DRG 861 ==
LOC: M ED 05:54 → M ED INP 08-01 10:30 → M PSY 08-01 12:01
PROVIDERS: ADMIT Psychiatry & Neurology Psychiatry; ATTEND Student in an Organized Health Care Education/Training Program
DX: Z76.5 Malingerer [conscious simulation] (principal); F16.10 Hallucinogen abuse, uncomplicated; F15.10 Other stimulant abuse, uncomplicated; F43.20 Adjustment disorder, unspecified; F17.290 Nicotine dependence, other tobacco product, uncomplicated; F60.3 Borderline personality disorder; F31.9 Bipolar disorder, unspecified; F10.10 Alcohol abuse, uncomplicated; F12.10 Cannabis abuse, uncomplicated; J45.909 Unspecified asthma, uncomplicated; K58.9 Irritable bowel syndrome, unspecified; F90.9 Attention-deficit hyperactivity disorder, unspecified type; Z79.899 Other long term (current) drug therapy

== ENCOUNTER 2023-08-06 02:12 | Emergency (ER) | payer OTHER ==
[~2023-08-06] VITALS: Ht 144.8 cm; Wt 100.0 kg
[~2023-08-06 02:12] MED LIST changes: +CLON-412 PO
[2023-08-06 02:46] LABS: HEMATOCRIT 40.7 % (36.0-47.0); HEMOGLOBIN 13.8 g/dl (12.0-15.5); MEAN CORPUSCULAR HEMOGLOBIN 30.9 pg (27.0-33.0); MEAN CORPUSCULAR HGB CONC 33.9 g/dl (32.0-36.5); MEAN CORPUSCULAR VOLUME 91.1 fl (80.0-96.0); PLATELET COUNT, AUTOMATED 328 10^3/uL (150-450); RED BLOOD COUNT 4.47 10^6/uL (4.00-5.40); WHITE BLOOD COUNT 12.3 10^3/uL (4.0-10.0)
[2023-08-06 03:14] LABS: AMPHETAMINES LEVEL URINE NEGATIVE (NEGATIVE); BARBITURATES URINE NEGATIVE (NEGATIVE); BENZODIAZEPINES URINE NEGATIVE (NEGATIVE); COCAINE METABOLITE URINE NEGATIVE (NEGATIVE); METHADONE URINE NEGATIVE (NEGATIVE); OPIATES URINE NEGATIVE (NEGATIVE); PHENCYCLIDINE URINE NEGATIVE (NEGATIVE)
[2023-08-06 03:17] LABS: ETHYL ALCOHOL (ETHANOL) 0.005 % (0.000-0.010)
[2023-08-06 03:18] LABS: CANNABINOIDS URINE POSITIVE (NEGATIVE)
[2023-08-06 03:19] LABS: ALBUMIN 3.9 G/DL (3.2-5.2); ALKALINE PHOSPHATASE 82 U/L (46-116); ALT/SGPT 17 U/L (7.0-40); AST/SGOT 15 U/L (<34); BILIRUBIN,DIRECT 0.2 MG/DL (<0.4); BILIRUBIN,TOTAL 0.4 MG/DL (0.3-1.2); BLOOD UREA NITROGEN 14 MG/DL (9-23); CALCIUM LEVEL 9.3 MG/DL (8.5-10.1); CARBON DIOXIDE LEVEL 25 MMOL/L (20-31); CHLORIDE LEVEL 106 MMOL/L (98-107); CREATININE FOR GFR 0.85 MG/DL (0.55-1.30); GLOMERULAR FILTRATION RATE > 60.0 (>60); GLUCOSE, FASTING 102 MG/DL (60-100); LITHIUM LEVEL 0.27 MMOL/L (1.0-1.20); POTASSIUM SERUM 3.8 MMOL/L (3.5-5.1); SALICYLATE LEVEL < 3.0 MG/DL (<30); SODIUM LEVEL 138 MMOL/L (136-145); TOTAL PROTEIN 6.5 G/DL (5.7-8.2)
[2023-08-06] MEDS: hydrOXYzine 50 MG TAB PO ONE (03:20)
[2023-08-06 03:21] LABS: THYROID STIMULATING HORMONE 2.895 uIU/ML (0.55-4.78)
[2023-08-06 03:29] LABS: HCG, SERUM QUALITATIVE NEGATIVE (NEGATIVE)
[2023-08-06 07:29] VITALS: BP 134/86
[2023-08-06] MEDS: cloNIDine 0.1MG TABLET PO PRN (07:29)
[2023-08-06] MEDS: LITHIUM CARBONATE 300 MG CAP PO SCH (07:29)
[2023-08-06] MEDS: OLANZapine ORAL DISINTEGRATING TAB 5MG PO ONE (09:14)
[2023-08-06] MEDS: NICOTINE 21MG/24HR 1 EA TRANSDERMAL TD ONE (09:30)
[2023-08-06 10:29] VITALS: BP 128/76; TEMP 97.7; O2SAT 99
[2023-08-06] MEDS ORDERED: ARIP1TAB10 PO (10:39)
[2023-08-06] MEDS ORDERED: DIVA500T9 PO (10:39)
[2023-08-06] MEDS ORDERED: FLUT15.820 NARES (10:39)
[2023-08-06] MEDS ORDERED: CLON0.5T17 PO (10:39)
[2023-08-06] MEDS ORDERED: HOME MED LIST COMPLETE! XX SCH (10:40)
[2023-08-06] MEDS ORDERED: OLANZapine 10 MG TAB PO SCH (21:00)
== END 2023-08-06 10:32 | disposition home or self-care (01) ==
LOC: M ED 02:12
DX: F31.9 Bipolar disorder, unspecified (principal); F12.10 Cannabis abuse, uncomplicated; F60.3 Borderline personality disorder; F17.210 Nicotine dependence, cigarettes, uncomplicated; J45.909 Unspecified asthma, uncomplicated; Z79.51 Long term (current) use of inhaled steroids; Z79.899 Other long term (current) drug therapy

== ENCOUNTER 2023-08-06 16:54 | Emergency (ER) | payer OTHER ==
[~2023-08-06 16:54] MED LIST changes: +ARIP1TAB10 PO; +CLON0.5T17 PO; +FLUT15.820 NARES
[2023-08-06] MEDS: hydrOXYzine 50 MG TAB PO STA (17:38)
[2023-08-06 18:11] VITALS: BP 140/88; TEMP 97.7; O2SAT 99
== END 2023-08-06 18:18 | disposition home or self-care (01) ==
LOC: M ED 16:54
DX: F31.9 Bipolar disorder, unspecified (principal); K58.9 Irritable bowel syndrome, unspecified; J45.909 Unspecified asthma, uncomplicated; F90.9 Attention-deficit hyperactivity disorder, unspecified type; F17.210 Nicotine dependence, cigarettes, uncomplicated; Z79.51 Long term (current) use of inhaled steroids; Z79.899 Other long term (current) drug therapy

== ENCOUNTER 2023-08-07 05:18 | Inpatient (IN) | payer OTHER ==
[~2023-08-07] VITALS: Ht 167.6 cm; Wt 75.0 kg
[2023-08-07] VITALS (9 sets, daily range): BP systolic 122–166; BP diastolic 60–102; TEMP 97.6–98.1; O2SAT 98–100
[2023-08-07 05:49] LABS: HEMATOCRIT 40.5 % (36.0-47.0); HEMOGLOBIN 13.7 g/dl (12.0-15.5); MEAN CORPUSCULAR HEMOGLOBIN 30.9 pg (27.0-33.0); MEAN CORPUSCULAR HGB CONC 33.8 g/dl (32.0-36.5); MEAN CORPUSCULAR VOLUME 91.2 fl (80.0-96.0); PLATELET COUNT, AUTOMATED 314 10^3/uL (150-450); RED BLOOD COUNT 4.44 10^6/uL (4.00-5.40); WHITE BLOOD COUNT 9.8 10^3/uL (4.0-10.0)
[2023-08-07 06:15] LABS: AMPHETAMINES LEVEL URINE NEGATIVE (NEGATIVE); BARBITURATES URINE NEGATIVE (NEGATIVE); BENZODIAZEPINES URINE NEGATIVE (NEGATIVE)
[2023-08-07 06:16] LABS: COCAINE METABOLITE URINE NEGATIVE (NEGATIVE); METHADONE URINE NEGATIVE (NEGATIVE); OPIATES URINE NEGATIVE (NEGATIVE); PHENCYCLIDINE URINE NEGATIVE (NEGATIVE)
[2023-08-07 06:18] LABS: CANNABINOIDS URINE POSITIVE (NEGATIVE); ETHYL ALCOHOL (ETHANOL) < 0.003 % (0.000-0.010)
[2023-08-07 06:19] LABS: SALICYLATE LEVEL < 3.0 MG/DL (<30)
[2023-08-07 06:20] LABS: ALBUMIN 3.7 G/DL (3.2-5.2); ALKALINE PHOSPHATASE 85 U/L (46-116); ALT/SGPT 17 U/L (7.0-40); AST/SGOT 13 U/L (<34); BILIRUBIN,DIRECT 0.2 MG/DL (<0.4); BILIRUBIN,TOTAL 0.4 MG/DL (0.3-1.2); BLOOD UREA NITROGEN 13 MG/DL (9-23); CALCIUM LEVEL 9.6 MG/DL (8.5-10.1); CARBON DIOXIDE LEVEL 23 MMOL/L (20-31); CHLORIDE LEVEL 108 MMOL/L (98-107); CREATININE FOR GFR 0.78 MG/DL (0.55-1.30); GLOMERULAR FILTRATION RATE > 60.0 (>60); GLUCOSE, FASTING 101 MG/DL (60-100); POTASSIUM SERUM 4.3 MMOL/L (3.5-5.1); SODIUM LEVEL 138 MMOL/L (136-145); TOTAL PROTEIN 6.3 G/DL (5.7-8.2)
[2023-08-07] MEDS ORDERED: MED REC CURRENTLY UNOBTAINABLE XX SCH (06:20)
[2023-08-07 06:22] LABS: THYROID STIMULATING HORMONE 1.287 uIU/ML (0.55-4.78)
[2023-08-07] MEDS: ARIPiprazole 10 MG TAB PO ONE (06:39)
[2023-08-07] MEDS: clonazePAM 1 MG TAB PO ONE (06:40)
[2023-08-07] MEDS: cloNIDine 0.1MG TABLET PO ONE (06:40)
[2023-08-07] MEDS: OLANZapine 10 MG TAB PO ONE (06:40)
[2023-08-07 06:47] LABS: LITHIUM LEVEL 0.29 MMOL/L (1.0-1.20)
[2023-08-07] MEDS ORDERED: MAALOX 30 ML SUSP *UDC PO PRN (15:10)
[2023-08-07] MEDS ORDERED: ACETAMINOPHEN TAB 650MG DOSE (2X325MG) PO PRN (15:10)
[2023-08-07] MEDS: THIAMINE 100 MG TAB PO SCH (17:34)
[2023-08-07] MEDS: MULTIVITAMINS/MINERALS THERAP 1 TAB PO SCH (17:34)
[2023-08-07] MEDS: diphenhydrAMINE 25MG CAP PO PRN (17:34)
[2023-08-07] MEDS: FOLIC ACID 1MG TAB PO SCH (17:34)
[2023-08-07] MEDS: OLANZapine ORAL DISINTEGRATING TAB 5MG PO PRN (17:34)
[2023-08-07] MEDS: IBUPROFEN 400MG TAB PO PRN (18:34)
[2023-08-07] MEDS: LORazepam 1 MG TAB PO STA (18:41)
[2023-08-07] MEDS: ARIPiprazole 15 MG TAB (AbiLIFY) PO SCH (20:12)
[2023-08-07] MEDS: traZODone 50 MG TAB PO PRN (20:12)
[2023-08-07] MEDS: DIVALPROEX 500MG *ER* TAB PO SCH (20:12)
[2023-08-07] MEDS: LORazepam 2 MG TAB PO PRN (20:13)
[2023-08-08] MEDS: IBUPROFEN 400MG TAB PO ONE (09:41)
[2023-08-08] MEDS: DIVALPROEX 250MG *ER* TAB PO SCH (12:23)
[2023-08-08] MEDS: NICOTINE 21MG/24HR 1 EA TRANSDERMAL TD PRN (12:24)
[2023-08-08] MEDS ORDERED: ALBUTEROL 90 MCG/ACT 8GM HFA INHALER INH PRN (13:15)
[2023-08-08 14:00] VITALS: BP 110/70
[2023-08-08 18:15] VITALS: BP 110/70; TEMP 96.6; O2SAT 98
[2023-08-08 20:00] VITALS: BP 156/89
[2023-08-08] MEDS: ARIPiprazole 10 MG TAB PO SCH (20:02)
[2023-08-09] MEDS ORDERED: HOME MED LIST COMPLETE! XX SCH (08:05)
[2023-08-09] MEDS: ARIPiprazole MONOHYDRATE 400 MG INJ (ABILIFY)(FREE PSY INPT ONLY) IM ONE (11:50)
[2023-08-09 18:27] VITALS: BP 124/70; TEMP 97.9; O2SAT 98
[2023-08-09] MEDS: MOM 30ML SUSPENSION UDC PO PRN (19:41)
[2023-08-10] MEDS: MIRTAZAPINE 15 MG TAB PO ONE (01:36)
[2023-08-10 06:23] LABS: CHOLESTEROL RISK RATIO 3.48 (<5); HDL CHOLESTEROL 40.5 MG/DL (>40); LDL CHOLESTEROL 73.9 MG/DL (<100); NON-HDL-C 100.5 MG/DL
[2023-08-10] MEDS ORDERED: TRAZ-252 PO (10:36)
[2023-08-10] MEDS ORDERED: ARIP1TAB43 PO (10:36)
[2023-08-10] MEDS ORDERED: DEPA250T2 PO (10:36)
[2023-08-10] MEDS ORDERED: ABIL1INJ2 IM (10:37)
[2023-08-10] MEDS ORDERED: MIRT1TAB15 PO (10:37)
[2023-08-10] MEDS ORDERED: CHLO100T22 PO (10:39)
== END 2023-08-10 11:03 | disposition home or self-care (01) | DRG 861 ==
LOC: M ED 05:18 → M ED INP 15:09 → M PSY 17:25
PROVIDERS: ADMIT Student in an Organized Health Care Education/Training Program; ATTEND Student in an Organized Health Care Education/Training Program
DX: Z76.5 Malingerer [conscious simulation] (principal); F31.9 Bipolar disorder, unspecified; Z91.198 Patient's noncompliance with other medical treatment and regimen for other reason; F10.10 Alcohol abuse, uncomplicated; F43.20 Adjustment disorder, unspecified; F19.10 Other psychoactive substance abuse, uncomplicated; F12.10 Cannabis abuse, uncomplicated; J45.909 Unspecified asthma, uncomplicated; F60.3 Borderline personality disorder; Z79.899 Other long term (current) drug therapy

== ENCOUNTER 2023-08-18 12:30 | Emergency (ER) | payer MEDICAID, OTHER ==
[~2023-08-18] VITALS: Ht 165.1 cm; Wt 75.0 kg
[~2023-08-18 12:30] MED LIST changes: +ABIL1INJ2 IM; +ARIP1TAB43 PO; +MIRT1TAB15 PO; +TRAZ-252 PO
[2023-08-18 13:34] LABS: HEMATOCRIT 43.2 % (36.0-47.0); HEMOGLOBIN 14.4 g/dl (12.0-15.5); MEAN CORPUSCULAR HEMOGLOBIN 30.8 pg (27.0-33.0); MEAN CORPUSCULAR HGB CONC 33.3 g/dl (32.0-36.5); MEAN CORPUSCULAR VOLUME 92.3 fl (80.0-96.0); PLATELET COUNT, AUTOMATED 318 10^3/uL (150-450); RED BLOOD COUNT 4.68 10^6/uL (4.00-5.40); WHITE BLOOD COUNT 8.7 10^3/uL (4.0-10.0)
[2023-08-18 13:58] LABS: ETHYL ALCOHOL (ETHANOL) < 0.003 % (0.000-0.010)
[2023-08-18 13:59] LABS: SALICYLATE LEVEL < 3.0 MG/DL (<30)
[2023-08-18 14:00] LABS: ALBUMIN 3.6 G/DL (3.2-5.2); ALKALINE PHOSPHATASE 77 U/L (46-116); ALT/SGPT 19 U/L (7.0-40); AST/SGOT 15 U/L (<34); BILIRUBIN,DIRECT 0.2 MG/DL (<0.4); BILIRUBIN,TOTAL 0.7 MG/DL (0.3-1.2); BLOOD UREA NITROGEN 11 MG/DL (9-23); CALCIUM LEVEL 9.3 MG/DL (8.5-10.1); CARBON DIOXIDE LEVEL 28 MMOL/L (20-31); CHLORIDE LEVEL 108 MMOL/L (98-107); CREATININE FOR GFR 0.84 MG/DL (0.55-1.30); GLOMERULAR FILTRATION RATE > 60.0 (>60); GLUCOSE, FASTING 84 MG/DL (60-100); POTASSIUM SERUM 4.3 MMOL/L (3.5-5.1); SODIUM LEVEL 140 MMOL/L (136-145); TOTAL PROTEIN 6.5 G/DL (5.7-8.2)
[2023-08-18 14:01] LABS: THYROID STIMULATING HORMONE 0.863 uIU/ML (0.55-4.78)
[2023-08-18 14:20] LABS: BARBITURATES URINE NEGATIVE (NEGATIVE); BENZODIAZEPINES URINE NEGATIVE (NEGATIVE); COCAINE METABOLITE URINE NEGATIVE (NEGATIVE); METHADONE URINE NEGATIVE (NEGATIVE); OPIATES URINE NEGATIVE (NEGATIVE); PHENCYCLIDINE URINE NEGATIVE (NEGATIVE)
[2023-08-18 14:21] LABS: AMPHETAMINES LEVEL URINE POSITIVE (NEGATIVE); CANNABINOIDS URINE POSITIVE (NEGATIVE)
[2023-08-18] MEDS ORDERED: FLUT15.820 (14:47)
[2023-08-18] MEDS ORDERED: traZODone 50 MG TAB PO PRN (14:55)
[2023-08-18 15:19] LABS: LITHIUM LEVEL 0.14 MMOL/L (1.0-1.20)
[2023-08-18] MEDS: LITHIUM CARBONATE 300 MG CAP PO SCH (16:24)
[2023-08-18] MEDS: LORazepam 1 MG TAB PO PRN (17:22)
[2023-08-18] MEDS ORDERED: METR375C3 PO (18:34)
[2023-08-18] MEDS: FLUTICASONE PROP 0.05% NASAL SPRAY 16 GM (FLONASE) NARES SCH (21:00)
[2023-08-18] MEDS: metroNIDAZOLE (FLAGYL) 500MG TABLET PO SCH (21:35)
[2023-08-18] MEDS: ACETAMINOPHEN TAB 650MG DOSE (2X325MG) PO ONE (23:01)
[2023-08-19] MEDS: ALBUTEROL 90 MCG/ACT 8GM HFA INHALER INH PRN (00:06)
[2023-08-19 08:22] LABS: HCG, SERUM QUALITATIVE NEGATIVE (NEGATIVE)
[2023-08-19] MEDS ORDERED: ABIL1INJ2 IM (08:24)
[2023-08-19] MEDS ORDERED: METR-265 PO (08:24)
[2023-08-19] MEDS ORDERED: TRAZ-252 PO (08:24)
[2023-08-19] MEDS ORDERED: DIVA250T67 PO (08:32)
[2023-08-19] MEDS ORDERED: MIRT1TAB15 PO (08:32)
[2023-08-19] MEDS ORDERED: CHLOR10TA PO (08:32)
[2023-08-19] MEDS ORDERED: ARIP1TAB43 PO (08:32)
[2023-08-19] MEDS ORDERED: HOME MED LIST COMPLETE! XX SCH (08:35)
[2023-08-19 13:16] VITALS: BP 138/83; TEMP 97.4; O2SAT 97
== END 2023-08-19 13:30 | disposition home or self-care (01) ==
LOC: M ED 12:30
DX: F31.9 Bipolar disorder, unspecified (principal); I10 Essential (primary) hypertension; F90.9 Attention-deficit hyperactivity disorder, unspecified type; F41.9 Anxiety disorder, unspecified; F17.210 Nicotine dependence, cigarettes, uncomplicated; F19.10 Other psychoactive substance abuse, uncomplicated; F10.10 Alcohol abuse, uncomplicated; Z79.51 Long term (current) use of inhaled steroids; Z79.899 Other long term (current) drug therapy

== ENCOUNTER 2023-08-21 05:39 | Emergency (ER) | payer OTHER ==
[~2023-08-21] VITALS: Ht 170.2 cm; Wt 101.7 kg
[~2023-08-21 05:39] MED LIST changes: +CHLOR10TA PO; +DIVA250T67 PO; +FLUT15.820; +METR375C3 PO
== END 2023-08-21 05:57 | disposition left against medical advice (07) ==
LOC: M ED 05:39
DX: Z53.21 Procedure and treatment not carried out due to patient leaving prior to being seen by health care provider (principal)

== ENCOUNTER 2023-11-09 14:25 | Inpatient (IN) | payer OTHER ==
[~2023-11-09] VITALS: Ht 167.6 cm; Wt 230.6 kg
[~2023-11-09 14:25] MED LIST changes: -ARIP1TAB43 PO; +ARIP20TA51 PO
[2023-11-09] MEDS: LORazepam 1 MG TAB PO ONE (15:00)
[2023-11-09 16:13] LABS: HEMATOCRIT 41.1 % (36.0-47.0); HEMOGLOBIN 13.9 g/dl (12.0-15.5); MEAN CORPUSCULAR HEMOGLOBIN 30.6 pg (27.0-33.0); MEAN CORPUSCULAR HGB CONC 33.8 g/dl (32.0-36.5); MEAN CORPUSCULAR VOLUME 90.5 fl (80.0-96.0); PLATELET COUNT, AUTOMATED 340 10^3/uL (150-450); RED BLOOD COUNT 4.54 10^6/uL (4.00-5.40); WHITE BLOOD COUNT 16.6 10^3/uL (4.0-10.0)
[2023-11-09 16:35] LABS: AMPHETAMINES LEVEL URINE NEGATIVE (NEGATIVE); BARBITURATES URINE NEGATIVE (NEGATIVE); BENZODIAZEPINES URINE NEGATIVE (NEGATIVE); COCAINE METABOLITE URINE NEGATIVE (NEGATIVE); METHADONE URINE NEGATIVE (NEGATIVE); OPIATES URINE NEGATIVE (NEGATIVE); PHENCYCLIDINE URINE NEGATIVE (NEGATIVE)
[2023-11-09 16:36] LABS: CANNABINOIDS URINE POSITIVE (NEGATIVE)
[2023-11-09 16:37] LABS: ETHYL ALCOHOL (ETHANOL) < 0.003 % (0.000-0.010); VALPROIC ACID (DEPAKOTE) < 3.0 UG/ML (50.0-100.0)
[2023-11-09 16:38] LABS: HCG, SERUM QUALITATIVE NEGATIVE (NEGATIVE)
[2023-11-09 16:39] LABS: SALICYLATE LEVEL < 3.0 MG/DL (<30)
[2023-11-09 16:40] LABS: ALBUMIN 4.4 G/DL (3.2-5.2); ALKALINE PHOSPHATASE 81 U/L (46-116); ALT/SGPT 18 U/L (7.0-40); AST/SGOT 15 U/L (<34); BILIRUBIN,DIRECT 0.3 MG/DL (<0.4); BILIRUBIN,TOTAL 0.9 MG/DL (0.3-1.2); BLOOD UREA NITROGEN 11 MG/DL (9-23); CARBON DIOXIDE LEVEL 22 MMOL/L (20-31); CHLORIDE LEVEL 108 MMOL/L (98-107); CREATININE FOR GFR 0.82 MG/DL (0.55-1.30); GLOMERULAR FILTRATION RATE > 60.0 (>60); GLUCOSE, FASTING 103 MG/DL (60-100); LITHIUM LEVEL 0.11 MMOL/L (1.0-1.20); POTASSIUM SERUM 3.9 MMOL/L (3.5-5.1); SODIUM LEVEL 142 MMOL/L (136-145); TOTAL PROTEIN 7.4 G/DL (5.7-8.2)
[2023-11-09 16:41] LABS: THYROID STIMULATING HORMONE 0.693 uIU/ML (0.55-4.78)
[2023-11-09] MEDS: HALOPERIDOL LACTATE 5MG/ML VIAL IM ONE (18:47)
[2023-11-09] MEDS: LORazepam 2 MG/ML 1ML VIAL IM ONE (18:47)
[2023-11-09] MEDS ORDERED: MAALOX 30 ML SUSP *UDC PO PRN (20:45)
[2023-11-09] MEDS ORDERED: ACETAMINOPHEN TAB 650MG DOSE (2X325MG) PO PRN (20:45)
[2023-11-10] MEDS: diphenhydrAMINE 25MG CAP PO PRN (02:44)
[2023-11-10] MEDS: LORazepam 1 MG TAB PO ONE (04:00)
[2023-11-10] MEDS ORDERED: DIVALPROEX 500MG *ER* TAB PO SCH (09:00)
[2023-11-10] MEDS: OLANZapine 10 MG TAB PO SCH (10:29)
[2023-11-10] MEDS: LORazepam 2 MG TAB PO STA (11:07)
[2023-11-10] MEDS: traZODone 50 MG TAB PO PRN (23:09)
[2023-11-11] MEDS: diphenhydrAMINE 50MG CAP PO ONE (03:34)
[2023-11-11] MEDS: LORazepam 2 MG TAB PO ONE (03:34)
[2023-11-11 06:03] VITALS: BP 104/54; TEMP 98; O2SAT 96
[2023-11-11] MEDS: diphenhydrAMINE 25MG CAP PO SCH (09:00)
[2023-11-11 18:22] VITALS: BP 152/98; TEMP 97.7; O2SAT 97
[2023-11-11] MEDS: traZODone 50 MG TAB PO PRN (23:51)
[2023-11-12 06:05] VITALS: BP 114/61; TEMP 97.9; O2SAT 98
[2023-11-12] MEDS ORDERED: CHLO100T30 PO (09:08)
[2023-11-12] MEDS ORDERED: NICO1DIS12 TOP (09:08)
[2023-11-12] MEDS ORDERED: HOME MED LIST COMPLETE! XX SCH (09:10)
[2023-11-12] MEDS: NICOTINE 21MG/24HR 1 EA TRANSDERMAL TD SCH (10:15)
[2023-11-12] MEDS: DIVALPROEX 500MG *ER* TAB PO SCH (11:38)
[2023-11-12] MEDS: LOPERAMIDE 2 MG CAPLET PO PRN (12:07)
[2023-11-12 23:30] VITALS: BP 140/82; TEMP 97.5; O2SAT 98
[2023-11-13] MEDS: LORazepam 2 MG TAB PO ONE (00:17)
[2023-11-13] MEDS: IBUPROFEN 400MG TAB PO PRN (01:08)
[2023-11-13 15:54] VITALS: BP 119/60; TEMP 97.9; O2SAT 95
[2023-11-14] MEDS: MOM 30ML SUSPENSION UDC PO PRN (11:00)
[2023-11-14 15:44] VITALS: BP 113/57; TEMP 97.7; O2SAT 97
[2023-11-14] MEDS ORDERED: cloNIDine 0.1MG TABLET PO SCH (16:00)
[2023-11-14] MEDS: OLANZapine 5 MG TAB PO ONE (16:29)
[2023-11-15] MEDS: hydrOXYzine 50 MG TAB PO SCH (08:12)
[2023-11-15] MEDS: OLANZapine 5 MG TAB PO PRN (17:10)
[2023-11-15 18:35] VITALS: BP 125/87; TEMP 97.7; O2SAT 100
[2023-11-15] MEDS: HALOPERIDOL LACTATE 5MG/ML VIAL IM ONE (18:40)
[2023-11-15] MEDS: LORazepam 2 MG/ML 1ML VIAL IM ONE (18:41)
[2023-11-15] MEDS: MIRTAZAPINE 15 MG TAB PO SCH (21:29)
[2023-11-16] MEDS ORDERED: MIRT-10 PO (16:59)
[2023-11-16] MEDS ORDERED: HALO10TA20 PO (16:59)
[2023-11-16] MEDS ORDERED: DEPA500T2 PO (16:59)
[2023-11-16] MEDS ORDERED: HYDR50TA70 PO (16:59)
== END 2023-11-16 17:46 | disposition home or self-care (01) | DRG 753 ==
LOC: M ED 14:25 → M ED INP 20:45 → M PSY 21:44
PROVIDERS: ADMIT Psychiatry & Neurology Child & Adolescent Psychiatry; ATTEND Psychiatry & Neurology Child & Adolescent Psychiatry
DX: F31.9 Bipolar disorder, unspecified (principal); Z91.148 Patient's other noncompliance with medication regimen for other reason; F16.10 Hallucinogen abuse, uncomplicated; F12.10 Cannabis abuse, uncomplicated; E66.9 Obesity, unspecified; J45.909 Unspecified asthma, uncomplicated; K58.9 Irritable bowel syndrome, unspecified; F17.290 Nicotine dependence, other tobacco product, uncomplicated; Z68.32 Body mass index [BMI] 32.0-32.9, adult; Z79.899 Other long term (current) drug therapy

== ENCOUNTER 2023-11-24 01:12 | Emergency (ER) | payer MEDICAID, OTHER ==
[~2023-11-24 01:12] MED LIST changes: +CHLO100T30 PO; +HALO10TA20 PO; +NICO1DIS12 TOP
[2023-11-24] MEDS: LORazepam 2 MG TAB PO STA (01:54)
[2023-11-24 02:06] LABS: HEMATOCRIT 39.9 % (36.0-47.0); HEMOGLOBIN 13.6 g/dl (12.0-15.5); MEAN CORPUSCULAR HEMOGLOBIN 31.2 pg (27.0-33.0); MEAN CORPUSCULAR HGB CONC 34.1 g/dl (32.0-36.5); MEAN CORPUSCULAR VOLUME 91.5 fl (80.0-96.0); PLATELET COUNT, AUTOMATED 356 10^3/uL (150-450); RED BLOOD COUNT 4.36 10^6/uL (4.00-5.40); WHITE BLOOD COUNT 10.9 10^3/uL (4.0-10.0)
[2023-11-24 02:14] LABS: ETHYL ALCOHOL (ETHANOL) 0.013 % (0.000-0.010)
[2023-11-24 02:16] LABS: ALBUMIN 4.3 G/DL (3.2-5.2); ALKALINE PHOSPHATASE 87 U/L (46-116); ALT/SGPT 16 U/L (7.0-40); AST/SGOT 20 U/L (<34); BILIRUBIN,DIRECT 0.4 MG/DL (<0.4); BILIRUBIN,TOTAL 1.4 MG/DL (0.3-1.2); BLOOD UREA NITROGEN 14 MG/DL (9-23); CALCIUM LEVEL 9.4 MG/DL (8.5-10.1); CARBON DIOXIDE LEVEL 27 MMOL/L (20-31); CHLORIDE LEVEL 106 MMOL/L (98-107); GLOMERULAR FILTRATION RATE > 60.0 (>60); GLUCOSE, FASTING 94 MG/DL (60-100); POTASSIUM SERUM 3.5 MMOL/L (3.5-5.1); SALICYLATE LEVEL < 3.0 MG/DL (<30); SODIUM LEVEL 140 MMOL/L (136-145); TOTAL PROTEIN 7.4 G/DL (5.7-8.2)
[2023-11-24 02:18] LABS: THYROID STIMULATING HORMONE 1.512 uIU/ML (0.55-4.78)
[2023-11-24] MEDS: IBUPROFEN 400MG TAB PO ONE (02:25)
[2023-11-24] MEDS: diphenhydrAMINE 50MG/ML VIAL IM ONE ×2 (03:46→10:10)
[2023-11-24] MEDS: LORazepam 2 MG/ML 1ML VIAL IM ONE ×2 (03:46→10:13)
[2023-11-24] MEDS: HALOPERIDOL LACTATE 5MG/ML VIAL IM ONE ×2 (03:48→10:12)
[2023-11-24] MEDS: BENZONATATE 100MG CAPSULE PO ONE (08:35)
[2023-11-24] MEDS: LORazepam 1 MG TAB PO STA (08:35)
[2023-11-24] MEDS ORDERED: HALO10TA20 PO (09:15)
[2023-11-24] MEDS ORDERED: HOME MED LIST COMPLETE! XX SCH (09:20)
[2023-11-24 09:22] LABS: BARBITURATES URINE NEGATIVE (NEGATIVE); COCAINE METABOLITE URINE NEGATIVE (NEGATIVE); METHADONE URINE NEGATIVE (NEGATIVE)
[2023-11-24 09:23] LABS: OPIATES URINE NEGATIVE (NEGATIVE); PHENCYCLIDINE URINE NEGATIVE (NEGATIVE)
[2023-11-24 09:31] LABS: AMPHETAMINES LEVEL URINE POSITIVE (NEGATIVE); BENZODIAZEPINES URINE POSITIVE (NEGATIVE); CANNABINOIDS URINE POSITIVE (NEGATIVE)
[2023-11-24] MEDS: OLANZapine INTRAMUSCULAR 10MG VIAL IM ONE (11:47)
[2023-11-24 15:00] VITALS: BP 95/61; TEMP 97.6; O2SAT 98
== END 2023-11-25 02:35 | disposition home or self-care (01) ==
LOC: M ED 01:12
DX: F19.159 Other psychoactive substance abuse with psychoactive substance-induced psychotic disorder, unspecified (principal); F31.9 Bipolar disorder, unspecified; Z79.51 Long term (current) use of inhaled steroids; Z79.899 Other long term (current) drug therapy
CPT/HCPCS: 80048; 80076; 80143; 80307; 82077; 84443; 85027; 87486; 87581; 87633; 87798; 93005; 96365; 96372; 96374; 99285; J1200; J1630; J2060; J2359

== ENCOUNTER 2023-11-25 10:06 | Inpatient (IN) | payer OTHER ==
[~2023-11-25] VITALS: Ht 167.6 cm; Wt 104.7 kg
[2023-11-25 10:48] LABS: HEMATOCRIT 38.7 % (36.0-47.0); MEAN CORPUSCULAR HEMOGLOBIN 30.8 pg (27.0-33.0); MEAN CORPUSCULAR HGB CONC 33.6 g/dl (32.0-36.5); MEAN CORPUSCULAR VOLUME 91.7 fl (80.0-96.0); PLATELET COUNT, AUTOMATED 329 10^3/uL (150-450); RED BLOOD COUNT 4.22 10^6/uL (4.00-5.40); WHITE BLOOD COUNT 13.5 10^3/uL (4.0-10.0)
[2023-11-25 11:09] LABS: BARBITURATES URINE NEGATIVE (NEGATIVE)
[2023-11-25 11:10] LABS: COCAINE METABOLITE URINE NEGATIVE (NEGATIVE); METHADONE URINE NEGATIVE (NEGATIVE); OPIATES URINE NEGATIVE (NEGATIVE); PHENCYCLIDINE URINE NEGATIVE (NEGATIVE)
[2023-11-25 11:12] LABS: AMPHETAMINES LEVEL URINE POSITIVE (NEGATIVE); BENZODIAZEPINES URINE POSITIVE (NEGATIVE); CANNABINOIDS URINE POSITIVE (NEGATIVE); ETHYL ALCOHOL (ETHANOL) < 0.003 % (0.000-0.010)
[2023-11-25 11:13] LABS: SALICYLATE LEVEL < 3.0 MG/DL (<30)
[2023-11-25 11:23] LABS: HCG, SERUM QUALITATIVE NEGATIVE (NEGATIVE)
[2023-11-25 11:24] LABS: ALBUMIN 3.9 G/DL (3.2-5.2); ALKALINE PHOSPHATASE 83 U/L (46-116); ALT/SGPT 17 U/L (7.0-40); AST/SGOT 20 U/L (<34); BILIRUBIN,DIRECT 0.3 MG/DL (<0.4); BILIRUBIN,TOTAL 0.9 MG/DL (0.3-1.2); BLOOD UREA NITROGEN 10 MG/DL (9-23); CALCIUM LEVEL 9.1 MG/DL (8.5-10.1); CARBON DIOXIDE LEVEL 23 MMOL/L (20-31); CHLORIDE LEVEL 109 MMOL/L (98-107); CREATININE FOR GFR 0.76 MG/DL (0.55-1.30); GLOMERULAR FILTRATION RATE > 60.0 (>60); GLUCOSE, FASTING 89 MG/DL (60-100); POTASSIUM SERUM 3.7 MMOL/L (3.5-5.1); SODIUM LEVEL 140 MMOL/L (136-145); THYROID STIMULATING HORMONE 0.325 uIU/ML (0.55-4.78); TOTAL PROTEIN 6.8 G/DL (5.7-8.2)
[2023-11-25] MEDS: hydrOXYzine 50 MG TAB PO ONE (12:17)
[2023-11-25] MEDS: ACETAMINOPHEN TAB 650MG DOSE (2X325MG) PO ONE ×2 (13:07→19:54)
[2023-11-25] MEDS ORDERED: HOME MED LIST COMPLETE! XX SCH (13:40)
[2023-11-25] MEDS: NICOTINE 21MG/24HR 1 EA TRANSDERMAL TD ONE (17:03)
[2023-11-25] MEDS: hydrOXYzine 50 MG TAB PO PRN (18:38)
[2023-11-25] MEDS: MIRTAZAPINE 15 MG TAB PO SCH (21:00)
[2023-11-26] MEDS: ALPRAZolam 0.5 MG TAB PO ONE (07:48)
[2023-11-26] MEDS ORDERED: MOM 30ML SUSPENSION UDC PO PRN (12:50)
[2023-11-26] MEDS ORDERED: traZODone 50 MG TAB PO PRN (12:50)
[2023-11-26] MEDS ORDERED: MAALOX 30 ML SUSP *UDC PO PRN (12:50)
[2023-11-26] MEDS: DIVALPROEX 500MG *ER* TAB PO SCH (14:34)
[2023-11-26] MEDS: diazePAM 2 MG TAB PO ONE (14:49)
[2023-11-26] MEDS: traZODone 50 MG TAB PO PRN (21:22)
[2023-11-27] MEDS: diazePAM 2 MG TAB PO ONE ×2 (09:05→20:39)
[2023-11-27 15:57] VITALS: BP 126/83; TEMP 96.8; O2SAT 99
[2023-11-27] MEDS: diphenhydrAMINE 25MG CAP PO PRN (22:33)
[2023-11-28] MEDS: ACETAMINOPHEN TAB 650MG DOSE (2X325MG) PO PRN (02:03)
[2023-11-28] MEDS: IBUPROFEN 400MG TAB PO PRN (05:46)
[2023-11-28 06:18] VITALS: BP 134/64; TEMP 96.7; O2SAT 98
[2023-11-28] MEDS: LORazepam 2 MG TAB PO ONE (09:14)
[2023-11-28 16:52] VITALS: BP 104/59; TEMP 97.8; O2SAT 98
[2023-11-28] MEDS: LORazepam 1 MG TAB PO ONE (21:27)
[2023-11-29 06:20] VITALS: BP 123/60; TEMP 97.1; O2SAT 98
== END 2023-11-29 11:49 | disposition home or self-care (01) | DRG 753 ==
LOC: M ED 10:06 → M ED INP 11-26 12:48 → M PSY 11-26 14:15
PROVIDERS: ADMIT Psychiatry & Neurology Child & Adolescent Psychiatry; ATTEND Psychiatry & Neurology Child & Adolescent Psychiatry
DX: F31.9 Bipolar disorder, unspecified (principal); Z91.148 Patient's other noncompliance with medication regimen for other reason; F15.10 Other stimulant abuse, uncomplicated; Z63.8 Other specified problems related to primary support group; F60.9 Personality disorder, unspecified; J45.909 Unspecified asthma, uncomplicated; K58.9 Irritable bowel syndrome, unspecified; F90.9 Attention-deficit hyperactivity disorder, unspecified type; F12.10 Cannabis abuse, uncomplicated; E66.9 Obesity, unspecified; Z79.899 Other long term (current) drug therapy; Z68.37 Body mass index [BMI] 37.0-37.9, adult

== ENCOUNTER 2023-12-16 02:19 | Emergency (ER) | payer MEDICAID, OTHER ==
[~2023-12-16] VITALS: Ht 170.2 cm; Wt 109.1 kg
[2023-12-16] MEDS: HALOPERIDOL LACTATE 5MG/ML VIAL IM ONE (02:57)
[2023-12-16] MEDS: LORazepam 2 MG/ML 1ML VIAL IM ONE (02:57)
[2023-12-16] MEDS: diphenhydrAMINE 50MG/ML VIAL IM ONE (02:58)
[2023-12-16 04:19] LABS: HEMATOCRIT 41.1 % (36.0-47.0); HEMOGLOBIN 13.6 g/dl (12.0-15.5); MEAN CORPUSCULAR HEMOGLOBIN 30.3 pg (27.0-33.0); MEAN CORPUSCULAR HGB CONC 33.1 g/dl (32.0-36.5); MEAN CORPUSCULAR VOLUME 91.5 fl (80.0-96.0); PLATELET COUNT, AUTOMATED 284 10^3/uL (150-450); RED BLOOD COUNT 4.49 10^6/uL (4.00-5.40); WHITE BLOOD COUNT 11.7 10^3/uL (4.0-10.0)
[2023-12-16 04:39] LABS: ETHYL ALCOHOL (ETHANOL) < 0.003 % (0.000-0.010)
[2023-12-16 04:41] LABS: ALBUMIN 3.8 G/DL (3.2-5.2); ALKALINE PHOSPHATASE 81 U/L (46-116); ALT/SGPT 13 U/L (7.0-40); AST/SGOT 14 U/L (<34); BILIRUBIN,DIRECT 0.4 MG/DL (<0.4); BILIRUBIN,TOTAL 1.5 MG/DL (0.3-1.2); BLOOD UREA NITROGEN 10 MG/DL (9-23); CALCIUM LEVEL 9.3 MG/DL (8.5-10.1); CARBON DIOXIDE LEVEL 23 MMOL/L (20-31); CHLORIDE LEVEL 108 MMOL/L (98-107); CREATININE FOR GFR 0.69 MG/DL (0.55-1.30); GLOMERULAR FILTRATION RATE > 60.0 (>60); GLUCOSE, FASTING 80 MG/DL (60-100); POTASSIUM SERUM 3.7 MMOL/L (3.5-5.1); SALICYLATE LEVEL < 3.0 MG/DL (<30); SODIUM LEVEL 138 MMOL/L (136-145); TOTAL PROTEIN 6.8 G/DL (5.7-8.2)
[2023-12-16 04:46] LABS: THYROID STIMULATING HORMONE 0.918 uIU/ML (0.55-4.78)
[2023-12-16 05:09] LABS: HCG, SERUM QUALITATIVE NEGATIVE (NEGATIVE)
[2023-12-16] MEDS ORDERED: HOME MED LIST COMPLETE! XX SCH (07:15)
[2023-12-16] MEDS ORDERED: MED REC COMMENT (07:15)
[2023-12-16 07:57] LABS: AMPHETAMINES LEVEL URINE NEGATIVE (NEGATIVE); BARBITURATES URINE NEGATIVE (NEGATIVE); BENZODIAZEPINES URINE NEGATIVE (NEGATIVE); COCAINE METABOLITE URINE NEGATIVE (NEGATIVE); METHADONE URINE NEGATIVE (NEGATIVE)
[2023-12-16 07:58] LABS: OPIATES URINE NEGATIVE (NEGATIVE); PHENCYCLIDINE URINE NEGATIVE (NEGATIVE)
[2023-12-16 08:04] LABS: CANNABINOIDS URINE POSITIVE (NEGATIVE)
[2023-12-16 10:23] VITALS: BP 102/65; TEMP 96.9; O2SAT 98
[2023-12-16] MEDS: hydrOXYzine 50 MG TAB PO STA (10:37)
[2023-12-16] MEDS ORDERED: LORazepam 2 MG TAB PO STA (11:55)
== END 2023-12-16 14:20 | disposition home or self-care (01) ==
LOC: M ED 02:19
DX: F31.9 Bipolar disorder, unspecified (principal); F60.9 Personality disorder, unspecified; F19.10 Other psychoactive substance abuse, uncomplicated; Z79.52 Long term (current) use of systemic steroids; Z79.899 Other long term (current) drug therapy
CPT/HCPCS: 80048; 80076; 80143; 80307; 82077; 84443; 84703; 85027; 96372; 99285; J1200; J1630; J2060

== ENCOUNTER 2023-12-19 10:13 | Emergency (ER) | payer OTHER ==
[~2023-12-19 10:13] MED LIST changes: +MED REC COMMENT
[2023-12-19] MEDS: LORazepam 2 MG TAB PO STA (10:30)
[2023-12-19 11:31] LABS: HEMATOCRIT 41.4 % (36.0-47.0); HEMOGLOBIN 13.8 g/dl (12.0-15.5); MEAN CORPUSCULAR HEMOGLOBIN 30.4 pg (27.0-33.0); MEAN CORPUSCULAR HGB CONC 33.3 g/dl (32.0-36.5); MEAN CORPUSCULAR VOLUME 91.2 fl (80.0-96.0); PLATELET COUNT, AUTOMATED 291 10^3/uL (150-450); RED BLOOD COUNT 4.54 10^6/uL (4.00-5.40); WHITE BLOOD COUNT 10.5 10^3/uL (4.0-10.0)
[2023-12-19 11:57] LABS: AMPHETAMINES LEVEL URINE NEGATIVE (NEGATIVE)
[2023-12-19 11:58] LABS: BARBITURATES URINE NEGATIVE (NEGATIVE); BENZODIAZEPINES URINE NEGATIVE (NEGATIVE); COCAINE METABOLITE URINE NEGATIVE (NEGATIVE); METHADONE URINE NEGATIVE (NEGATIVE); OPIATES URINE NEGATIVE (NEGATIVE)
[2023-12-19 11:59] LABS: PHENCYCLIDINE URINE NEGATIVE (NEGATIVE)
[2023-12-19 12:00] LABS: ETHYL ALCOHOL (ETHANOL) 0.004 % (0.000-0.010); HCG, SERUM QUALITATIVE NEGATIVE (NEGATIVE)
[2023-12-19 12:01] LABS: CANNABINOIDS URINE POSITIVE (NEGATIVE)
[2023-12-19 12:02] LABS: ALBUMIN 3.8 G/DL (3.2-5.2); ALKALINE PHOSPHATASE 91 U/L (46-116); ALT/SGPT 12 U/L (7.0-40); AST/SGOT 12 U/L (<34); BILIRUBIN,DIRECT 0.1 MG/DL (<0.4); BILIRUBIN,TOTAL 0.4 MG/DL (0.3-1.2); BLOOD UREA NITROGEN 12 MG/DL (9-23); CALCIUM LEVEL 9.5 MG/DL (8.5-10.1); CARBON DIOXIDE LEVEL 24 MMOL/L (20-31); CHLORIDE LEVEL 107 MMOL/L (98-107); CREATININE FOR GFR 0.68 MG/DL (0.55-1.30); GLOMERULAR FILTRATION RATE > 60.0 (>60); GLUCOSE, FASTING 81 MG/DL (60-100); POTASSIUM SERUM 4.2 MMOL/L (3.5-5.1); SALICYLATE LEVEL < 3.0 MG/DL (<30); SODIUM LEVEL 138 MMOL/L (136-145); TOTAL PROTEIN 6.8 G/DL (5.7-8.2)
[2023-12-19 12:03] LABS: THYROID STIMULATING HORMONE 0.355 uIU/ML (0.55-4.78)
[2023-12-19 14:28] VITALS: BP 129/78; TEMP 97; O2SAT 99
== END 2023-12-19 14:31 | disposition home or self-care (01) ==
LOC: M ED 10:13
DX: F31.9 Bipolar disorder, unspecified (principal); J45.909 Unspecified asthma, uncomplicated; K58.9 Irritable bowel syndrome, unspecified; F90.9 Attention-deficit hyperactivity disorder, unspecified type; F12.10 Cannabis abuse, uncomplicated; Z79.51 Long term (current) use of inhaled steroids; Z79.899 Other long term (current) drug therapy

== ENCOUNTER 2023-12-21 09:27 | Emergency (ER) | payer OTHER ==
[~2023-12-21] VITALS: Ht 167.6 cm; Wt 104.5 kg
[2023-12-21 11:01] LABS: AMPHETAMINES LEVEL URINE NEGATIVE (NEGATIVE); BARBITURATES URINE NEGATIVE (NEGATIVE); BENZODIAZEPINES URINE NEGATIVE (NEGATIVE)
[2023-12-21 11:02] LABS: COCAINE METABOLITE URINE NEGATIVE (NEGATIVE); METHADONE URINE NEGATIVE (NEGATIVE); OPIATES URINE NEGATIVE (NEGATIVE); PHENCYCLIDINE URINE NEGATIVE (NEGATIVE)
[2023-12-21 11:03] LABS: CANNABINOIDS URINE POSITIVE (NEGATIVE)
[2023-12-21 11:16] VITALS: BP 141/76; TEMP 97; O2SAT 97
== END 2023-12-21 11:19 | disposition home or self-care (01) ==
LOC: M ED 09:27
DX: F31.9 Bipolar disorder, unspecified (principal); F22 Delusional disorders; F15.10 Other stimulant abuse, uncomplicated; Z79.51 Long term (current) use of inhaled steroids; Z79.899 Other long term (current) drug therapy

== ENCOUNTER 2023-12-22 13:22 | Emergency (ER) | payer OTHER ==
[~2023-12-22] VITALS: Ht 167.6 cm; Wt 110.5 kg
[2023-12-22 14:31] VITALS: BP 135/82; TEMP 98.7; O2SAT 98
[2023-12-22 14:54] LABS: AMPHETAMINES LEVEL URINE NEGATIVE (NEGATIVE); BARBITURATES URINE NEGATIVE (NEGATIVE); BENZODIAZEPINES URINE NEGATIVE (NEGATIVE); COCAINE METABOLITE URINE NEGATIVE (NEGATIVE); METHADONE URINE NEGATIVE (NEGATIVE); OPIATES URINE NEGATIVE (NEGATIVE); PHENCYCLIDINE URINE NEGATIVE (NEGATIVE)
[2023-12-22 14:56] LABS: CANNABINOIDS URINE POSITIVE (NEGATIVE)
== END 2023-12-22 14:48 | disposition home or self-care (01) ==
LOC: M ED 13:22
DX: F43.0 Acute stress reaction (principal); I10 Essential (primary) hypertension; K21.9 Gastro-esophageal reflux disease without esophagitis; F41.9 Anxiety disorder, unspecified; F32.A Depression, unspecified; F90.9 Attention-deficit hyperactivity disorder, unspecified type; F17.210 Nicotine dependence, cigarettes, uncomplicated; F10.10 Alcohol abuse, uncomplicated; Z79.51 Long term (current) use of inhaled steroids; Z79.899 Other long term (current) drug therapy

== ENCOUNTER 2023-12-23 17:11 | Emergency (ER) | payer OTHER ==
[2023-12-23] MEDS: LORazepam 1 MG TAB PO STA (17:50)
[2023-12-23 17:52] LABS: HEMATOCRIT 39.2 % (36.0-47.0); HEMOGLOBIN 13.1 g/dl (12.0-15.5); MEAN CORPUSCULAR HEMOGLOBIN 30.6 pg (27.0-33.0); MEAN CORPUSCULAR HGB CONC 33.4 g/dl (32.0-36.5); MEAN CORPUSCULAR VOLUME 91.6 fl (80.0-96.0); PLATELET COUNT, AUTOMATED 300 10^3/uL (150-450); RED BLOOD COUNT 4.28 10^6/uL (4.00-5.40); WHITE BLOOD COUNT 10.4 10^3/uL (4.0-10.0)
[2023-12-23 18:23] LABS: ETHYL ALCOHOL (ETHANOL) < 0.003 % (0.000-0.010)
[2023-12-23 18:24] LABS: SALICYLATE LEVEL < 3.0 MG/DL (<30)
[2023-12-23 18:25] LABS: ALBUMIN 4.1 G/DL (3.2-5.2); ALKALINE PHOSPHATASE 89 U/L (46-116); ALT/SGPT 14 U/L (7.0-40); AST/SGOT 11 U/L (<34); BILIRUBIN,DIRECT 0.3 MG/DL (<0.4); BILIRUBIN,TOTAL 0.9 MG/DL (0.3-1.2); BLOOD UREA NITROGEN 9 MG/DL (9-23); CALCIUM LEVEL 9.4 MG/DL (8.5-10.1); CARBON DIOXIDE LEVEL 25 MMOL/L (20-31); CHLORIDE LEVEL 109 MMOL/L (98-107); CREATININE FOR GFR 0.83 MG/DL (0.55-1.30); GLOMERULAR FILTRATION RATE > 60.0 (>60); GLUCOSE, FASTING 96 MG/DL (60-100); POTASSIUM SERUM 3.7 MMOL/L (3.5-5.1); SODIUM LEVEL 140 MMOL/L (136-145); TOTAL PROTEIN 6.9 G/DL (5.7-8.2)
[2023-12-23 18:27] LABS: THYROID STIMULATING HORMONE 0.442 uIU/ML (0.55-4.78)
[2023-12-23 18:29] LABS: HCG, SERUM QUALITATIVE NEGATIVE (NEGATIVE)
[2023-12-23] MEDS: LOPERAMIDE 2 MG CAPLET PO ONE (19:03)
[2023-12-23] MEDS: ACETAMINOPHEN 325 MG TAB PO ONE (19:29)
[2023-12-23 19:45] LABS: AMPHETAMINES LEVEL URINE NEGATIVE (NEGATIVE)
[2023-12-23 19:46] LABS: BARBITURATES URINE NEGATIVE (NEGATIVE); BENZODIAZEPINES URINE NEGATIVE (NEGATIVE); COCAINE METABOLITE URINE NEGATIVE (NEGATIVE); METHADONE URINE NEGATIVE (NEGATIVE); OPIATES URINE NEGATIVE (NEGATIVE); PHENCYCLIDINE URINE NEGATIVE (NEGATIVE)
[2023-12-23 19:48] LABS: CANNABINOIDS URINE POSITIVE (NEGATIVE)
[2023-12-23 20:26] VITALS: BP 133/71; TEMP 97.3; O2SAT 97
== END 2023-12-23 20:29 | disposition home or self-care (01) ==
LOC: M ED 17:11
DX: F43.0 Acute stress reaction (principal); I10 Essential (primary) hypertension; J45.909 Unspecified asthma, uncomplicated; K21.9 Gastro-esophageal reflux disease without esophagitis; F41.9 Anxiety disorder, unspecified; F32.A Depression, unspecified; F90.9 Attention-deficit hyperactivity disorder, unspecified type; F17.210 Nicotine dependence, cigarettes, uncomplicated; Z79.51 Long term (current) use of inhaled steroids; Z79.899 Other long term (current) drug therapy

== ENCOUNTER 2023-12-24 09:56 | Emergency (ER) | payer OTHER ==
[2023-12-24 10:40] LABS: HEMATOCRIT 37.1 % (36.0-47.0); HEMOGLOBIN 12.4 g/dl (12.0-15.5); MEAN CORPUSCULAR HEMOGLOBIN 30.5 pg (27.0-33.0); MEAN CORPUSCULAR HGB CONC 33.4 g/dl (32.0-36.5); MEAN CORPUSCULAR VOLUME 91.4 fl (80.0-96.0); PLATELET COUNT, AUTOMATED 296 10^3/uL (150-450); RED BLOOD COUNT 4.06 10^6/uL (4.00-5.40); WHITE BLOOD COUNT 8.8 10^3/uL (4.0-10.0)
[2023-12-24 11:02] LABS: AMPHETAMINES LEVEL URINE NEGATIVE (NEGATIVE)
[2023-12-24 11:03] LABS: BARBITURATES URINE NEGATIVE (NEGATIVE); BENZODIAZEPINES URINE NEGATIVE (NEGATIVE); COCAINE METABOLITE URINE NEGATIVE (NEGATIVE); METHADONE URINE NEGATIVE (NEGATIVE); OPIATES URINE NEGATIVE (NEGATIVE); PHENCYCLIDINE URINE NEGATIVE (NEGATIVE)
[2023-12-24 11:04] LABS: CANNABINOIDS URINE POSITIVE (NEGATIVE); ETHYL ALCOHOL (ETHANOL) < 0.003 % (0.000-0.010)
[2023-12-24 11:05] LABS: HCG, SERUM QUALITATIVE NEGATIVE (NEGATIVE); SALICYLATE LEVEL < 3.0 MG/DL (<30)
[2023-12-24 11:06] LABS: THYROID STIMULATING HORMONE 0.525 uIU/ML (0.55-4.78)
[2023-12-24] MEDS: LORazepam 2 MG TAB PO STA (11:07)
[2023-12-24 11:37] LABS: ALBUMIN 4.1 G/DL (3.2-5.2); ALKALINE PHOSPHATASE 88 U/L (46-116); ALT/SGPT 12 U/L (7.0-40); AST/SGOT 11 U/L (<34); BILIRUBIN,DIRECT 0.3 MG/DL (<0.4); BILIRUBIN,TOTAL 0.8 MG/DL (0.3-1.2); BLOOD UREA NITROGEN 8 MG/DL (9-23); CALCIUM LEVEL 9.4 MG/DL (8.5-10.1); CARBON DIOXIDE LEVEL 25 MMOL/L (20-31); CHLORIDE LEVEL 109 MMOL/L (98-107); CREATININE FOR GFR 0.79 MG/DL (0.55-1.30); GLOMERULAR FILTRATION RATE > 60.0 (>60); GLUCOSE, FASTING 87 MG/DL (60-100); SODIUM LEVEL 139 MMOL/L (136-145); TOTAL PROTEIN 6.9 G/DL (5.7-8.2)
[2023-12-24] MEDS: ACETAMINOPHEN 500 MG TAB PO ONE (12:52)
[2023-12-24 13:35] VITALS: BP 153/77; TEMP 97.7; O2SAT 99
== END 2023-12-24 13:40 | disposition home or self-care (01) ==
LOC: M ED 09:56
DX: F43.0 Acute stress reaction (principal); I10 Essential (primary) hypertension; F41.9 Anxiety disorder, unspecified; F32.A Depression, unspecified; K21.9 Gastro-esophageal reflux disease without esophagitis; F17.210 Nicotine dependence, cigarettes, uncomplicated; F19.10 Other psychoactive substance abuse, uncomplicated; Z79.51 Long term (current) use of inhaled steroids; Z79.899 Other long term (current) drug therapy

== ENCOUNTER 2023-12-26 05:53 | Emergency (ER) | payer OTHER ==
[2023-12-25] MEDS: hydrOXYzine 50 MG TAB PO SCH (21:00)
[~2023-12-26] VITALS: Ht 170.2 cm; Wt 106.8 kg
[2023-12-26] MEDS: OLANZapine INTRAMUSCULAR 10MG VIAL IM ONE (06:20)
[2023-12-26] MEDS: DIVALPROEX 500MG *ER* TAB PO SCH (09:00)
[2023-12-26] MEDS ORDERED: HALOPERIDOL LACTATE 5MG/ML VIAL IM ONE (09:45)
[2023-12-26] MEDS: LORazepam 2 MG/ML 1ML VIAL IM ONE (09:51)
[2023-12-26] MEDS: diphenhydrAMINE 50MG/ML VIAL IM ONE (09:51)
[2023-12-26 09:58] LABS: AMPHETAMINES LEVEL URINE NEGATIVE (NEGATIVE)
[2023-12-26 10:04] LABS: COCAINE METABOLITE URINE NEGATIVE (NEGATIVE); METHADONE URINE NEGATIVE (NEGATIVE); OPIATES URINE NEGATIVE (NEGATIVE)
[2023-12-26 10:05] LABS: BARBITURATES URINE NEGATIVE (NEGATIVE); BENZODIAZEPINES URINE NEGATIVE (NEGATIVE); PHENCYCLIDINE URINE NEGATIVE (NEGATIVE)
[2023-12-26 10:15] LABS: CANNABINOIDS URINE POSITIVE (NEGATIVE)
[2023-12-26 10:22] LABS: HEMATOCRIT 38.2 % (36.0-47.0); HEMOGLOBIN 12.5 g/dl (12.0-15.5); MEAN CORPUSCULAR HEMOGLOBIN 30.6 pg (27.0-33.0); MEAN CORPUSCULAR HGB CONC 32.7 g/dl (32.0-36.5); MEAN CORPUSCULAR VOLUME 93.6 fl (80.0-96.0); PLATELET COUNT, AUTOMATED 280 10^3/uL (150-450); RED BLOOD COUNT 4.08 10^6/uL (4.00-5.40); WHITE BLOOD COUNT 9.6 10^3/uL (4.0-10.0)
[2023-12-26 10:42] LABS: ETHYL ALCOHOL (ETHANOL) < 0.003 % (0.000-0.010)
[2023-12-26 10:44] LABS: SALICYLATE LEVEL < 3.0 MG/DL (<30)
[2023-12-26 10:46] LABS: THYROID STIMULATING HORMONE 0.851 uIU/ML (0.55-4.78)
[2023-12-26 10:51] LABS: ALBUMIN 3.6 G/DL (3.2-5.2); ALKALINE PHOSPHATASE 82 U/L (46-116); ALT/SGPT 13 U/L (7.0-40); AST/SGOT 14 U/L (<34); BILIRUBIN,DIRECT 0.3 MG/DL (<0.4); BILIRUBIN,TOTAL 0.7 MG/DL (0.3-1.2); BLOOD UREA NITROGEN 7 MG/DL (9-23); CALCIUM LEVEL 9.1 MG/DL (8.5-10.1); CARBON DIOXIDE LEVEL 24 MMOL/L (20-31); CHLORIDE LEVEL 114 MMOL/L (98-107); GLOMERULAR FILTRATION RATE > 60.0 (>60); GLUCOSE, FASTING 95 MG/DL (60-100); POTASSIUM SERUM 3.8 MMOL/L (3.5-5.1); SODIUM LEVEL 144 MMOL/L (136-145); TOTAL PROTEIN 6.2 G/DL (5.7-8.2)
[2023-12-26] MEDS ORDERED: HALOPERIDOL LACTATE 5MG/ML VIAL IM PRN (12:15)
[2023-12-26] MEDS ORDERED: LORazepam 2 MG/ML 1ML VIAL IM PRN (12:15)
[2023-12-26] MEDS ORDERED: diphenhydrAMINE 50MG/ML VIAL IM PRN (12:15)
[2023-12-26] MEDS ORDERED: HOME MED LIST COMPLETE! XX SCH (12:20)
[2023-12-26] MEDS: HALOPERIDOL LACTATE 5MG/ML VIAL IM STA (12:49)
[2023-12-26 14:46] LABS: HCG, SERUM QUALITATIVE NEGATIVE (NEGATIVE)
[2023-12-26] MEDS: MIRTAZAPINE 15 MG TAB PO SCH (21:00)
[2023-12-27] MEDS: diphenhydrAMINE 50MG CAP PO PRN (08:43)
[2023-12-27] MEDS: LORazepam 1 MG TAB PO PRN (08:43)
[2023-12-27 09:59] VITALS: BP 122/83; TEMP 96.9; O2SAT 96
== END 2023-12-27 11:58 | disposition home or self-care (01) ==
LOC: M ED 05:53
DX: F31.9 Bipolar disorder, unspecified (principal); J45.909 Unspecified asthma, uncomplicated; Z79.51 Long term (current) use of inhaled steroids; Z79.899 Other long term (current) drug therapy
CPT/HCPCS: 36415; 80048; 80076; 80143; 80307; 82077; 84443; 84703; 85027; 96372; 99285; J1200; J1630; J2060; J2359

== ENCOUNTER 2023-12-29 11:55 | Inpatient (IN) | payer OTHER ==
[~2023-12-29] VITALS: Ht 167.6 cm; Wt 103.5 kg
[2023-12-29 12:47] LABS: HEMATOCRIT 42.3 % (36.0-47.0); HEMOGLOBIN 13.9 g/dl (12.0-15.5); MEAN CORPUSCULAR HEMOGLOBIN 30.8 pg (27.0-33.0); MEAN CORPUSCULAR HGB CONC 32.9 g/dl (32.0-36.5); MEAN CORPUSCULAR VOLUME 93.8 fl (80.0-96.0); PLATELET COUNT, AUTOMATED 380 10^3/uL (150-450); RED BLOOD COUNT 4.51 10^6/uL (4.00-5.40); WHITE BLOOD COUNT 13.1 10^3/uL (4.0-10.0)
[2023-12-29 13:11] LABS: BARBITURATES URINE NEGATIVE (NEGATIVE); BENZODIAZEPINES URINE NEGATIVE (NEGATIVE); COCAINE METABOLITE URINE NEGATIVE (NEGATIVE); METHADONE URINE NEGATIVE (NEGATIVE); OPIATES URINE NEGATIVE (NEGATIVE); PHENCYCLIDINE URINE NEGATIVE (NEGATIVE)
[2023-12-29 13:12] LABS: ETHYL ALCOHOL (ETHANOL) < 0.003 % (0.000-0.010)
[2023-12-29 13:14] LABS: ALBUMIN 4.3 G/DL (3.2-5.2); ALKALINE PHOSPHATASE 89 U/L (46-116); ALT/SGPT 26 U/L (7.0-40); AST/SGOT 33 U/L (<34); BILIRUBIN,DIRECT 0.4 MG/DL (<0.4); BILIRUBIN,TOTAL 1.1 MG/DL (0.3-1.2); BLOOD UREA NITROGEN 8 MG/DL (9-23); CALCIUM LEVEL 9.9 MG/DL (8.5-10.1); CARBON DIOXIDE LEVEL 28 MMOL/L (20-31); CHLORIDE LEVEL 107 MMOL/L (98-107); CREATININE FOR GFR 0.91 MG/DL (0.55-1.30); GLOMERULAR FILTRATION RATE > 60.0 (>60); GLUCOSE, FASTING 83 MG/DL (60-100); POTASSIUM SERUM 3.9 MMOL/L (3.5-5.1); SALICYLATE LEVEL < 3.0 MG/DL (<30); SODIUM LEVEL 141 MMOL/L (136-145); TOTAL PROTEIN 7.3 G/DL (5.7-8.2)
[2023-12-29 13:15] LABS: THYROID STIMULATING HORMONE 1.334 uIU/ML (0.55-4.78)
[2023-12-29 13:22] LABS: AMPHETAMINES LEVEL URINE POSITIVE (NEGATIVE); CANNABINOIDS URINE POSITIVE (NEGATIVE)
[2023-12-29 13:38] LABS: VALPROIC ACID (DEPAKOTE) 19.6 UG/ML (50.0-100.0)
[2023-12-29 13:52] LABS: HCG, SERUM QUALITATIVE NEGATIVE (NEGATIVE)
[2023-12-29] MEDS ORDERED: LITH300T2 PO (13:55)
[2023-12-29] MEDS ORDERED: HOME MED LIST COMPLETE! XX SCH (14:00)
[2023-12-29] MEDS: hydrOXYzine 50 MG TAB PO ONE (14:30)
[2023-12-29] MEDS: LORazepam 2 MG/ML 1ML VIAL IM STA ×2 (14:52→19:16)
[2023-12-29] MEDS ORDERED: diphenhydrAMINE 25MG CAP PO PRN (17:05)
[2023-12-29] MEDS ORDERED: traZODone 50 MG TAB PO PRN (17:05)
[2023-12-29] MEDS ORDERED: MOM 30ML SUSPENSION UDC PO PRN (17:05)
[2023-12-29] MEDS ORDERED: IBUPROFEN 400MG TAB PO PRN (17:05)
[2023-12-29] MEDS ORDERED: MAALOX 30 ML SUSP *UDC PO PRN (17:05)
[2023-12-29] MEDS: diphenhydrAMINE 50MG/ML VIAL IM STA (19:16)
[2023-12-29] MEDS: HALOPERIDOL LACTATE 5MG/ML VIAL IM STA (19:16)
[2023-12-29 20:42] VITALS: BP 119/67; TEMP 97.3; O2SAT 100
[2023-12-29] MEDS: hydrOXYzine 50 MG TAB PO SCH (20:56)
[2023-12-29] MEDS: LITHIUM CARBONATE 300 MG CAP PO SCH (20:57)
[2023-12-29] MEDS: DIVALPROEX 250MG *ER* TAB PO SCH (20:57)
[2023-12-29] MEDS: MIRTAZAPINE 15 MG TAB PO SCH (20:57)
[2023-12-30] MEDS: LORazepam 1 MG TAB PO STA (05:40)
[2023-12-30] MEDS: ACETAMINOPHEN TAB 650MG DOSE (2X325MG) PO PRN (07:09)
== END 2023-12-30 09:39 | disposition home or self-care (01) | DRG 753 ==
LOC: M ED 11:55 → M ED INP 17:04 → M PSY 22:00
PROVIDERS: ADMIT Psychiatry & Neurology Psychiatry; ATTEND Psychiatry & Neurology Psychiatry
DX: F31.9 Bipolar disorder, unspecified (principal); Z79.899 Other long term (current) drug therapy

== ENCOUNTER 2024-01-02 07:04 | Emergency (ER) | payer OTHER ==
[~2024-01-02] VITALS: Ht 167.6 cm; Wt 103.5 kg
[~2024-01-02 07:04] MED LIST changes: +LITH300T2 PO
[2024-01-02] MEDS: diphenhydrAMINE 50MG/ML VIAL IM ONE (08:13)
[2024-01-02] MEDS: HALOPERIDOL LACTATE 5MG/ML VIAL IM ONE (08:14)
[2024-01-02 08:37] LABS: BARBITURATES URINE NEGATIVE (NEGATIVE); BENZODIAZEPINES URINE NEGATIVE (NEGATIVE); COCAINE METABOLITE URINE NEGATIVE (NEGATIVE); METHADONE URINE NEGATIVE (NEGATIVE); OPIATES URINE NEGATIVE (NEGATIVE); PHENCYCLIDINE URINE NEGATIVE (NEGATIVE)
[2024-01-02 08:40] LABS: AMPHETAMINES LEVEL URINE POSITIVE (NEGATIVE); CANNABINOIDS URINE POSITIVE (NEGATIVE)
[2024-01-02 09:41] LABS: HEMATOCRIT 42.3 % (36.0-47.0); HEMOGLOBIN 13.9 g/dl (12.0-15.5); MEAN CORPUSCULAR HEMOGLOBIN 30.8 pg (27.0-33.0); MEAN CORPUSCULAR HGB CONC 32.9 g/dl (32.0-36.5); MEAN CORPUSCULAR VOLUME 93.6 fl (80.0-96.0); PLATELET COUNT, AUTOMATED 294 10^3/uL (150-450); RED BLOOD COUNT 4.52 10^6/uL (4.00-5.40); WHITE BLOOD COUNT 8.3 10^3/uL (4.0-10.0)
[2024-01-02 10:07] LABS: ETHYL ALCOHOL (ETHANOL) < 0.003 % (0.000-0.010)
[2024-01-02 10:09] LABS: ALBUMIN 4.2 G/DL (3.2-5.2); ALKALINE PHOSPHATASE 98 U/L (46-116); ALT/SGPT 33 U/L (7.0-40); AST/SGOT 26 U/L (<34); BILIRUBIN,DIRECT 0.3 MG/DL (<0.4); BILIRUBIN,TOTAL 0.7 MG/DL (0.3-1.2); BLOOD UREA NITROGEN 9 MG/DL (9-23); CALCIUM LEVEL 9.5 MG/DL (8.5-10.1); CARBON DIOXIDE LEVEL 22 MMOL/L (20-31); CHLORIDE LEVEL 109 MMOL/L (98-107); CREATININE FOR GFR 0.82 MG/DL (0.55-1.30); GLOMERULAR FILTRATION RATE > 60.0 (>60); GLUCOSE, FASTING 76 MG/DL (60-100); POTASSIUM SERUM 3.7 MMOL/L (3.5-5.1); SALICYLATE LEVEL < 3.0 MG/DL (<30); SODIUM LEVEL 138 MMOL/L (136-145); TOTAL PROTEIN 6.9 G/DL (5.7-8.2)
[2024-01-02 10:11] LABS: THYROID STIMULATING HORMONE 0.788 uIU/ML (0.55-4.78)
[2024-01-02 10:14] LABS: HCG, SERUM QUALITATIVE NEGATIVE (NEGATIVE)
[2024-01-02] MEDS: LORazepam 2 MG/ML 1ML VIAL IM STA (12:13)
[2024-01-02] MEDS ORDERED: HOME MED LIST COMPLETE! XX SCH (19:15)
[2024-01-03 06:19] VITALS: BP 127/84; TEMP 97.9; O2SAT 98
[2024-01-03 08:40] LABS: VALPROIC ACID (DEPAKOTE) < 3.0 UG/ML (50.0-100.0)
[2024-01-03 08:41] LABS: LITHIUM LEVEL < 0.10 MMOL/L (1.0-1.20)
[2024-01-03 09:32] LABS: HEPATITIS B CORE ANTIBODY IGM NEGATIVE (NEGATIVE); HEPATITIS B SURFACE ANTIGEN NEGATIVE (NEGATIVE); HEPATITIS C VIRUS ABY INDEX < 0.02 INDEX (<0.8)
[2024-01-03] MEDS: hydrOXYzine 50 MG TAB PO SCH (10:07)
[2024-01-03] MEDS: LITHIUM CARBONATE 300 MG CAP PO SCH (10:07)
[2024-01-03] MEDS: DIVALPROEX 500MG *ER* TAB PO SCH (10:09)
[2024-01-03 11:42] LABS: Trichomonas vaginalis (AMP) NOT DETECTED (NEGATIVE)
[2024-01-03 12:05] LABS: GC DNA AMPLIFICATION NEGATIVE (NEGATIVE)
[2024-01-03] MEDS ORDERED: MIRTAZAPINE 15 MG TAB PO SCH (21:00)
== END 2024-01-03 12:36 | disposition home or self-care (01) ==
LOC: M ED 07:04
DX: F25.9 Schizoaffective disorder, unspecified (principal); F31.9 Bipolar disorder, unspecified; K58.9 Irritable bowel syndrome, unspecified; F19.10 Other psychoactive substance abuse, uncomplicated; Z79.51 Long term (current) use of inhaled steroids; Z79.899 Other long term (current) drug therapy
CPT/HCPCS: 80048; 80074; 80076; 80143; 80164; 80178; 80307; 82077; 84443; 84703; 85027; 86780; 87661; 87810; 87850; 96372; 99285; J1200; J1630; J2060

== ENCOUNTER 2024-01-04 10:49 | Emergency (ER) | payer OTHER ==
[~2024-01-04] VITALS: Ht 170.2 cm; Wt 100.9 kg
[2024-01-04 10:50] VITALS: BP 142/88; TEMP 96.2; O2SAT 99
[2024-01-04 11:42] LABS: HEMATOCRIT 40.7 % (36.0-47.0); HEMOGLOBIN 13.4 g/dl (12.0-15.5); MEAN CORPUSCULAR HEMOGLOBIN 30.6 pg (27.0-33.0); MEAN CORPUSCULAR HGB CONC 32.9 g/dl (32.0-36.5); MEAN CORPUSCULAR VOLUME 92.9 fl (80.0-96.0); PLATELET COUNT, AUTOMATED 295 10^3/uL (150-450); RED BLOOD COUNT 4.38 10^6/uL (4.00-5.40); WHITE BLOOD COUNT 8.9 10^3/uL (4.0-10.0)
[2024-01-04 12:00] LABS: ETHYL ALCOHOL (ETHANOL) < 0.003 % (0.000-0.010)
[2024-01-04 12:02] LABS: SALICYLATE LEVEL < 3.0 MG/DL (<30)
[2024-01-04 12:03] LABS: THYROID STIMULATING HORMONE 0.301 uIU/ML (0.55-4.78)
[2024-01-04 12:05] LABS: ALBUMIN 3.7 G/DL (3.2-5.2); ALKALINE PHOSPHATASE 81 U/L (46-116); ALT/SGPT 26 U/L (7.0-40); AST/SGOT 24 U/L (<34); BILIRUBIN,DIRECT 0.2 MG/DL (<0.4); BILIRUBIN,TOTAL 0.5 MG/DL (0.3-1.2); BLOOD UREA NITROGEN 6 MG/DL (9-23); CARBON DIOXIDE LEVEL 26 MMOL/L (20-31); CHLORIDE LEVEL 108 MMOL/L (98-107); CREATININE FOR GFR 0.78 MG/DL (0.55-1.30); GLOMERULAR FILTRATION RATE > 60.0 (>60); GLUCOSE, FASTING 80 MG/DL (60-100); POTASSIUM SERUM 3.5 MMOL/L (3.5-5.1); SODIUM LEVEL 142 MMOL/L (136-145); TOTAL PROTEIN 6.3 G/DL (5.7-8.2)
[2024-01-04 12:09] LABS: PHENCYCLIDINE URINE NEGATIVE (NEGATIVE)
[2024-01-04 12:10] LABS: BARBITURATES URINE NEGATIVE (NEGATIVE); BENZODIAZEPINES URINE NEGATIVE (NEGATIVE); COCAINE METABOLITE URINE NEGATIVE (NEGATIVE); METHADONE URINE NEGATIVE (NEGATIVE); OPIATES URINE NEGATIVE (NEGATIVE)
[2024-01-04 12:11] LABS: AMPHETAMINES LEVEL URINE POSITIVE (NEGATIVE); CANNABINOIDS URINE POSITIVE (NEGATIVE)
[2024-01-04 12:23] LABS: HCG, SERUM QUALITATIVE NEGATIVE (NEGATIVE)
== END 2024-01-04 18:44 | disposition home or self-care (01) ==
LOC: M ED 10:49
DX: F43.0 Acute stress reaction (principal); E11.9 Type 2 diabetes mellitus without complications; F41.9 Anxiety disorder, unspecified; F32.A Depression, unspecified; F90.9 Attention-deficit hyperactivity disorder, unspecified type; F17.210 Nicotine dependence, cigarettes, uncomplicated; F15.10 Other stimulant abuse, uncomplicated; F10.10 Alcohol abuse, uncomplicated; Z79.51 Long term (current) use of inhaled steroids; Z79.899 Other long term (current) drug therapy

== ENCOUNTER 2024-01-08 15:15 | Inpatient (IN) | payer OTHER ==
[~2024-01-08] VITALS: Ht 170.2 cm; Wt 102.4 kg
[2024-01-08 16:22] LABS: HEMATOCRIT 42.1 % (36.0-47.0); HEMOGLOBIN 13.6 g/dl (12.0-15.5); MEAN CORPUSCULAR HGB CONC 32.3 g/dl (32.0-36.5); MEAN CORPUSCULAR VOLUME 92.7 fl (80.0-96.0); PLATELET COUNT, AUTOMATED 314 10^3/uL (150-450); RED BLOOD COUNT 4.54 10^6/uL (4.00-5.40); WHITE BLOOD COUNT 9.5 10^3/uL (4.0-10.0)
[2024-01-08 16:32] LABS: BENZODIAZEPINES URINE NEGATIVE (NEGATIVE)
[2024-01-08 16:33] LABS: BARBITURATES URINE NEGATIVE (NEGATIVE); METHADONE URINE NEGATIVE (NEGATIVE); OPIATES URINE NEGATIVE (NEGATIVE); PHENCYCLIDINE URINE NEGATIVE (NEGATIVE)
[2024-01-08 16:48] LABS: ETHYL ALCOHOL (ETHANOL) < 0.003 % (0.000-0.010)
[2024-01-08 16:49] LABS: SALICYLATE LEVEL < 3.0 MG/DL (<30)
[2024-01-08 16:50] LABS: ALBUMIN 3.7 G/DL (3.2-5.2); ALKALINE PHOSPHATASE 93 U/L (46-116); ALT/SGPT 22 U/L (7.0-40); AST/SGOT 16 U/L (<34); BILIRUBIN,DIRECT 0.1 MG/DL (<0.4); BILIRUBIN,TOTAL 0.3 MG/DL (0.3-1.2); BLOOD UREA NITROGEN 11 MG/DL (9-23); CALCIUM LEVEL 9.2 MG/DL (8.5-10.1); CARBON DIOXIDE LEVEL 25 MMOL/L (20-31); CHLORIDE LEVEL 108 MMOL/L (98-107); CREATININE FOR GFR 0.88 MG/DL (0.55-1.30); GLOMERULAR FILTRATION RATE > 60.0 (>60); GLUCOSE, FASTING 86 MG/DL (60-100); HCG, SERUM QUALITATIVE NEGATIVE (NEGATIVE); SODIUM LEVEL 139 MMOL/L (136-145); TOTAL PROTEIN 6.4 G/DL (5.7-8.2)
[2024-01-08 16:51] LABS: THYROID STIMULATING HORMONE 1.261 uIU/ML (0.55-4.78)
[2024-01-08 16:52] LABS: AMPHETAMINES LEVEL URINE POSITIVE (NEGATIVE); CANNABINOIDS URINE POSITIVE (NEGATIVE); COCAINE METABOLITE URINE POSITIVE (NEGATIVE)
[2024-01-08] MEDS ORDERED: HOME MED LIST COMPLETE! XX SCH (20:35)
[2024-01-09] MEDS: LITHIUM CARBONATE 300 MG CAP PO ONE (01:29)
[2024-01-09] MEDS ORDERED: DIVALPROEX 250MG *ER* TAB PO SCH (09:00)
[2024-01-09] MEDS: DIVALPROEX 500MG *ER* TAB PO SCH (09:00)
[2024-01-09] MEDS: hydrOXYzine 50 MG TAB PO SCH (09:13)
[2024-01-09] MEDS: LITHIUM CARBONATE 300 MG CAP PO SCH (09:14)
[2024-01-09] MEDS ORDERED: MOM 30ML SUSPENSION UDC PO PRN (13:55)
[2024-01-09] MEDS ORDERED: diphenhydrAMINE 25MG CAP PO PRN (13:55)
[2024-01-09] MEDS ORDERED: ACETAMINOPHEN TAB 650MG DOSE (2X325MG) PO PRN (13:55)
[2024-01-09] MEDS ORDERED: traZODone 50 MG TAB PO PRN (13:55)
[2024-01-09] MEDS ORDERED: MAALOX 30 ML SUSP *UDC PO PRN (13:55)
[2024-01-09] MEDS ORDERED: IBUPROFEN 400MG TAB PO PRN (13:55)
[2024-01-09 16:07] VITALS: BP 113/58; TEMP 98.2; O2SAT 98
[2024-01-09] MEDS: MIRTAZAPINE 15 MG TAB PO SCH (20:36)
[2024-01-10 06:00] VITALS: BP 138/89; TEMP 96.1; O2SAT 97
[2024-01-10] MEDS ORDERED: LITH300T2 PO (09:06)
[2024-01-10] MEDS ORDERED: QUET200T2 PO (09:06)
[2024-01-10] MEDS ORDERED: QUEtiapine FUMARATE 200 MG TAB PO SCH (21:00)
== END 2024-01-10 10:11 | disposition home or self-care (01) | DRG 753 ==
LOC: M ED 15:15 → M ED INP 01-09 13:53 → M PSY 01-09 15:08
PROVIDERS: ADMIT Psychiatry & Neurology Psychiatry; ATTEND Psychiatry & Neurology Psychiatry
DX: F31.60 Bipolar disorder, current episode mixed, unspecified (principal); F60.89 Other specific personality disorders; F14.10 Cocaine abuse, uncomplicated; F17.200 Nicotine dependence, unspecified, uncomplicated

== ENCOUNTER 2024-01-18 07:33 | Emergency (ER) | payer OTHER, SELFPAY ==
[~2024-01-18] VITALS: Ht 167.6 cm; Wt 107.0 kg
[~2024-01-18 07:33] MED LIST changes: -OLAN15TA13 PO; +OLAN15TA69 PO; +QUET200T2 PO
[2024-01-18 09:00] LABS: HEMATOCRIT 38.6 % (36.0-47.0); HEMOGLOBIN 12.9 g/dl (12.0-15.5); MEAN CORPUSCULAR HEMOGLOBIN 30.4 pg (27.0-33.0); MEAN CORPUSCULAR HGB CONC 33.4 g/dl (32.0-36.5); MEAN CORPUSCULAR VOLUME 90.8 fl (80.0-96.0); PLATELET COUNT, AUTOMATED 289 10^3/uL (150-450); RED BLOOD COUNT 4.25 10^6/uL (4.00-5.40); WHITE BLOOD COUNT 12.7 10^3/uL (4.0-10.0)
[2024-01-18 09:40] LABS: BARBITURATES URINE NEGATIVE (NEGATIVE); METHADONE URINE NEGATIVE (NEGATIVE); OPIATES URINE NEGATIVE (NEGATIVE); PHENCYCLIDINE URINE NEGATIVE (NEGATIVE)
[2024-01-18 09:41] LABS: BENZODIAZEPINES URINE NEGATIVE (NEGATIVE)
[2024-01-18] MEDS ORDERED: QUET200T2 PO (09:42)
[2024-01-18 09:43] LABS: AMPHETAMINES LEVEL URINE POSITIVE (NEGATIVE); CANNABINOIDS URINE POSITIVE (NEGATIVE); COCAINE METABOLITE URINE POSITIVE (NEGATIVE)
[2024-01-18] MEDS ORDERED: HOME MED LIST COMPLETE! XX SCH (09:45)
[2024-01-18 09:48] LABS: ETHYL ALCOHOL (ETHANOL) < 0.003 % (0.000-0.010)
[2024-01-18 09:50] LABS: ALBUMIN 3.7 G/DL (3.2-5.2); ALKALINE PHOSPHATASE 83 U/L (46-116); ALT/SGPT 19 U/L (7.0-40); AST/SGOT 20 U/L (<34); BILIRUBIN,DIRECT 0.4 MG/DL (<0.4); BILIRUBIN,TOTAL 1.2 MG/DL (0.3-1.2); BLOOD UREA NITROGEN 10 MG/DL (9-23); CALCIUM LEVEL 9.2 MG/DL (8.5-10.1); CARBON DIOXIDE LEVEL 25 MMOL/L (20-31); CHLORIDE LEVEL 108 MMOL/L (98-107); CREATININE FOR GFR 0.72 MG/DL (0.55-1.30); GLOMERULAR FILTRATION RATE > 60.0 (>60); GLUCOSE, FASTING 70 MG/DL (60-100); POTASSIUM SERUM 3.8 MMOL/L (3.5-5.1); SALICYLATE LEVEL < 3.0 MG/DL (<30); SODIUM LEVEL 140 MMOL/L (136-145); TOTAL PROTEIN 6.6 G/DL (5.7-8.2)
[2024-01-18 09:52] LABS: THYROID STIMULATING HORMONE 1.214 uIU/ML (0.55-4.78)
[2024-01-18 09:57] LABS: HCG, SERUM QUALITATIVE NEGATIVE (NEGATIVE)
[2024-01-18] MEDS: OLANZapine ORAL DISINTEGRATING TAB 5MG PO ONE (10:08)
[2024-01-18] MEDS ORDERED: AMOX500C PO (11:01)
[2024-01-18] MEDS ORDERED: OVERDOSE RESCUE KIT XX SCH (11:05)
[2024-01-18 11:30] VITALS: BP 145/82; TEMP 97; O2SAT 95
[2024-01-19] MEDS ORDERED: AZIT-12 PO (12:09)
== END 2024-01-18 11:34 | disposition home or self-care (01) ==
LOC: M ED 07:33
DX: F19.14 Other psychoactive substance abuse with psychoactive substance-induced mood disorder (principal); I10 Essential (primary) hypertension; J45.909 Unspecified asthma, uncomplicated; F31.9 Bipolar disorder, unspecified; F17.210 Nicotine dependence, cigarettes, uncomplicated; Z79.51 Long term (current) use of inhaled steroids; Z79.2 Long term (current) use of antibiotics; Z79.899 Other long term (current) drug therapy

== ENCOUNTER 2024-01-18 17:53 | Emergency (ER) | payer OTHER, SELFPAY ==
[~2024-01-18] VITALS: Ht 167.6 cm; Wt 107.0 kg
[~2024-01-18 17:53] MED LIST changes: +AMOX500C PO
[2024-01-18] MEDS: MAGIC MOUTHWASH 5ML ORAL SYRINGE SS ONE (20:00)
[2024-01-18] MEDS ORDERED: HOME MED LIST COMPLETE! XX SCH (20:50)
[2024-01-18 20:52] LABS: ETHYL ALCOHOL (ETHANOL) < 0.003 % (0.000-0.010)
[2024-01-18 20:53] LABS: ALBUMIN 3.5 G/DL (3.2-5.2); ALKALINE PHOSPHATASE 83 U/L (46-116); ALT/SGPT 19 U/L (7.0-40); AST/SGOT 21 U/L (<34); BILIRUBIN,DIRECT 0.3 MG/DL (<0.4); BLOOD UREA NITROGEN 8 MG/DL (9-23); CALCIUM LEVEL 8.9 MG/DL (8.5-10.1); CARBON DIOXIDE LEVEL 22 MMOL/L (20-31); CHLORIDE LEVEL 109 MMOL/L (98-107); CREATININE FOR GFR 0.65 MG/DL (0.55-1.30); GLOMERULAR FILTRATION RATE > 60.0 (>60); GLUCOSE, FASTING 80 MG/DL (60-100); POTASSIUM SERUM 4.4 MMOL/L (3.5-5.1); SODIUM LEVEL 140 MMOL/L (136-145); TOTAL PROTEIN 6.5 G/DL (5.7-8.2)
[2024-01-18 20:54] LABS: SALICYLATE LEVEL < 3.0 MG/DL (<30)
[2024-01-18 20:55] LABS: THYROID STIMULATING HORMONE 0.787 uIU/ML (0.55-4.78)
[2024-01-18 21:04] LABS: HCG, SERUM QUALITATIVE NEGATIVE (NEGATIVE)
[2024-01-18] MEDS ORDERED: MAGIC MOUTHWASH 5ML ORAL SYRINGE SS PRN (23:25)
[2024-01-19] MEDS: AZITHROMYCIN 250MG TABLET PO ONE (00:36)
[2024-01-19 11:16] LABS: BARBITURATES URINE NEGATIVE (NEGATIVE)
[2024-01-19 11:17] LABS: BENZODIAZEPINES URINE NEGATIVE (NEGATIVE); METHADONE URINE NEGATIVE (NEGATIVE); OPIATES URINE NEGATIVE (NEGATIVE); PHENCYCLIDINE URINE NEGATIVE (NEGATIVE)
[2024-01-19 11:22] LABS: AMPHETAMINES LEVEL URINE POSITIVE (NEGATIVE); CANNABINOIDS URINE POSITIVE (NEGATIVE); COCAINE METABOLITE URINE POSITIVE (NEGATIVE)
[2024-01-19] MEDS ORDERED: AZIT-12 PO (12:09)
[2024-01-19 12:46] VITALS: BP 125/68; TEMP 97; O2SAT 96
[2024-01-19] MEDS ORDERED: AZITHROMYCIN 250MG TABLET PO SCH (18:00)
== END 2024-01-19 12:40 | disposition home or self-care (01) ==
LOC: M ED 17:53
DX: F31.9 Bipolar disorder, unspecified (principal); F19.10 Other psychoactive substance abuse, uncomplicated; J02.0 Streptococcal pharyngitis; F32.A Depression, unspecified; F41.9 Anxiety disorder, unspecified; F90.9 Attention-deficit hyperactivity disorder, unspecified type; Z79.51 Long term (current) use of inhaled steroids; Z79.2 Long term (current) use of antibiotics

== ENCOUNTER 2024-01-29 18:52 | Emergency (ER) | payer MEDICAID, SELFPAY ==
[~2024-01-29] VITALS: Ht 167.6 cm; Wt 100.0 kg
[~2024-01-29 18:52] MED LIST changes: +AZIT-12 PO
[2024-01-29] MEDS ORDERED: LORazepam 2 MG TAB PO PRN (19:20)
== END 2024-01-29 19:25 | disposition left against medical advice (07) ==
LOC: M ED 18:52
DX: F41.9 Anxiety disorder, unspecified (principal); F32.A Depression, unspecified; F90.9 Attention-deficit hyperactivity disorder, unspecified type; F15.10 Other stimulant abuse, uncomplicated; Z79.51 Long term (current) use of inhaled steroids; Z79.2 Long term (current) use of antibiotics; Z79.899 Other long term (current) drug therapy; Z53.9 Procedure and treatment not carried out, unspecified reason

== ENCOUNTER 2024-02-02 21:47 | Emergency (ER) | payer MEDICAID, OTHER ==
[~2024-02-02] VITALS: Ht 170.2 cm; Wt 98.6 kg
[2024-02-02 23:12] LABS: AMPHETAMINES LEVEL URINE NEGATIVE (NEGATIVE); BARBITURATES URINE NEGATIVE (NEGATIVE); BENZODIAZEPINES URINE NEGATIVE (NEGATIVE); COCAINE METABOLITE URINE NEGATIVE (NEGATIVE); METHADONE URINE NEGATIVE (NEGATIVE); OPIATES URINE NEGATIVE (NEGATIVE); PHENCYCLIDINE URINE NEGATIVE (NEGATIVE)
[2024-02-02 23:14] LABS: ETHYL ALCOHOL (ETHANOL) < 0.003 % (0.000-0.010); LIPASE 35 U/L (12-53)
[2024-02-02 23:15] LABS: HCG, SERUM QUANTITATIVE < 2.6 MIU/ML (<4.2)
[2024-02-02 23:16] LABS: ALBUMIN 3.5 G/DL (3.2-5.2); ALKALINE PHOSPHATASE 78 U/L (46-116); ALT/SGPT 10 U/L (7.0-40); AST/SGOT < 8 U/L (<34); BILIRUBIN,DIRECT 0.1 MG/DL (<0.4); BILIRUBIN,TOTAL 0.3 MG/DL (0.3-1.2); BLOOD UREA NITROGEN 8 MG/DL (9-23); CALCIUM LEVEL 9.8 MG/DL (8.5-10.1); CARBON DIOXIDE LEVEL 26 MMOL/L (20-31); CHLORIDE LEVEL 110 MMOL/L (98-107); CREATININE FOR GFR 0.72 MG/DL (0.55-1.30); GLOMERULAR FILTRATION RATE > 60.0 (>60); GLUCOSE, FASTING 84 MG/DL (60-100); POTASSIUM SERUM 3.5 MMOL/L (3.5-5.1); SALICYLATE LEVEL < 3.0 MG/DL (<30); SODIUM LEVEL 141 MMOL/L (136-145); TOTAL PROTEIN 6.5 G/DL (5.7-8.2)
[2024-02-02 23:18] LABS: THYROID STIMULATING HORMONE 2.267 uIU/ML (0.55-4.78)
[2024-02-02 23:28] LABS: CANNABINOIDS URINE POSITIVE (NEGATIVE)
[2024-02-03 01:29] LABS: BASO % 0.3 % (0.0-1.0); EOS # 0.2 10^3/uL (0.0-0.5); EOS % 1.3 % (0.0-3.0); HEMOGLOBIN 13.8 g/dl (12.0-15.5); LYMPH # 2.9 10^3/uL (1.5-5.0); LYMPH % 21.9 % (24.0-44.0); MEAN CORPUSCULAR HEMOGLOBIN 30.7 pg (27.0-33.0); MEAN CORPUSCULAR HGB CONC 32.9 g/dl (32.0-36.5); MEAN CORPUSCULAR VOLUME 93.5 fl (80.0-96.0); MONO # 0.7 10^3/uL (0.0-0.8); MONO % 5.5 % (2.0-8.0); NEUTROPHILS # 9.3 10^3/uL (1.5-8.5); NEUTROPHILS % 70.7 % (36.0-66.0); PLATELET COUNT, AUTOMATED 329 10^3/uL (150-450); RED BLOOD COUNT 4.49 10^6/uL (4.00-5.40); WHITE BLOOD COUNT 13.2 10^3/uL (4.0-10.0)
[2024-02-03] MEDS ORDERED: ISOVUE-370 76% 100ML VIAL As Ordered ONE (04:30)
[2024-02-03 05:00] LABS: LITHIUM LEVEL 0.28 MMOL/L (1.0-1.20)
[2024-02-03] MEDS: KETOROLAC 30 MG/ML 1ML VIAL IV ONE (05:12)
[2024-02-03] MEDS: ONDANSETRON 4MG 2ML VIAL IV ONE (05:12)
[2024-02-03] MEDS: LORazepam 2 MG/ML 1ML VIAL IV STA (05:44)
[2024-02-03] MEDS ORDERED: HOME MED LIST COMPLETE! XX SCH (06:35)
[2024-02-03 07:14] VITALS: BP 128/80; TEMP 97.2; O2SAT 97
[2024-02-03] MEDS ORDERED: NAPR-837 PO (10:07)
== END 2024-02-03 11:09 | disposition home or self-care (01) ==
LOC: M ED 21:47 → EDBD 21:47 → M ED 02-03 11:09
DX: N83.202 Unspecified ovarian cyst, left side (principal); K57.30 Diverticulosis of large intestine without perforation or abscess without bleeding; J45.909 Unspecified asthma, uncomplicated; G43.909 Migraine, unspecified, not intractable, without status migrainosus; K58.9 Irritable bowel syndrome, unspecified; F12.10 Cannabis abuse, uncomplicated; F10.10 Alcohol abuse, uncomplicated; F17.200 Nicotine dependence, unspecified, uncomplicated; Z79.52 Long term (current) use of systemic steroids; Z79.1 Long term (current) use of non-steroidal anti-inflammatories (NSAID); Z79.899 Other long term (current) drug therapy
CPT/HCPCS: 74177; 76856; 80048; 80076; 80143; 80178; 80307; 81001; 82077; 83690; 84443; 84702; 85025; 93976; 96374; 96375; 99284; J1885; J2060; J2405; Q9967

== ENCOUNTER 2024-02-05 12:36 | Inpatient (IN) | payer MEDICAID, OTHER ==
[~2024-02-05] VITALS: Ht 167.6 cm; Wt 95.5 kg
[~2024-02-05 12:36] MED LIST changes: +NAPR-837 PO
[2024-02-05] MEDS ORDERED: OLANZapine ORAL DISINTEGRATING TAB 5MG PO PRN (13:15)
[2024-02-05 13:19] LABS: HEMATOCRIT 41.7 % (36.0-47.0); HEMOGLOBIN 13.8 g/dl (12.0-15.5); MEAN CORPUSCULAR HEMOGLOBIN 30.1 pg (27.0-33.0); MEAN CORPUSCULAR HGB CONC 33.1 g/dl (32.0-36.5); MEAN CORPUSCULAR VOLUME 90.8 fl (80.0-96.0); PLATELET COUNT, AUTOMATED 344 10^3/uL (150-450); RED BLOOD COUNT 4.59 10^6/uL (4.00-5.40); WHITE BLOOD COUNT 10.4 10^3/uL (4.0-10.0)
[2024-02-05 13:42] LABS: AMPHETAMINES LEVEL URINE NEGATIVE (NEGATIVE); BARBITURATES URINE NEGATIVE (NEGATIVE); BENZODIAZEPINES URINE NEGATIVE (NEGATIVE); COCAINE METABOLITE URINE NEGATIVE (NEGATIVE); METHADONE URINE NEGATIVE (NEGATIVE); OPIATES URINE NEGATIVE (NEGATIVE); PHENCYCLIDINE URINE NEGATIVE (NEGATIVE)
[2024-02-05 13:44] LABS: ETHYL ALCOHOL (ETHANOL) < 0.003 % (0.000-0.010)
[2024-02-05 13:46] LABS: HCG, SERUM QUALITATIVE NEGATIVE (NEGATIVE); SALICYLATE LEVEL < 3.0 MG/DL (<30)
[2024-02-05 13:49] LABS: ALBUMIN 3.8 G/DL (3.2-5.2); ALKALINE PHOSPHATASE 86 U/L (35-104); ALT/SGPT 11 U/L (7.0-40); AST/SGOT < 8 U/L (<34); BILIRUBIN,DIRECT 0.3 MG/DL (<0.4); BILIRUBIN,TOTAL 0.8 MG/DL (0.3-1.2); BLOOD UREA NITROGEN 7 MG/DL (9-23); CALCIUM LEVEL 9.9 MG/DL (8.5-10.1); CARBON DIOXIDE LEVEL 26 MMOL/L (20-31); CHLORIDE LEVEL 108 MMOL/L (98-107); CREATININE FOR GFR 0.69 MG/DL (0.55-1.30); GLOMERULAR FILTRATION RATE > 60.0 (>60); GLUCOSE, FASTING 94 MG/DL (60-100); SODIUM LEVEL 140 MMOL/L (136-145); THYROID STIMULATING HORMONE 1.343 uIU/ML (0.55-4.78); TOTAL PROTEIN 6.8 G/DL (5.7-8.2)
[2024-02-05 13:49] LABS: CANNABINOIDS URINE POSITIVE (NEGATIVE)
[2024-02-05 15:07] LABS: LITHIUM LEVEL 0.12 MMOL/L (1.0-1.20)
[2024-02-05] MEDS ORDERED: HOME MED LIST COMPLETE! XX SCH (17:25)
[2024-02-05] MEDS ORDERED: MAALOX 30 ML SUSP *UDC PO PRN (18:15)
[2024-02-05] MEDS ORDERED: MOM 30ML SUSPENSION UDC PO PRN (18:15)
[2024-02-05] MEDS: traZODone 50 MG TAB PO PRN (23:59)
[2024-02-05] MEDS: diphenhydrAMINE 25MG CAP PO PRN (23:59)
[2024-02-06] MEDS: ACETAMINOPHEN 325 MG TAB PO PRN (05:40)
[2024-02-06 05:49] VITALS: BP 114/72; TEMP 97.1; O2SAT 100
[2024-02-06] MEDS: OLANZapine ORAL DISINTEGRATING TAB 5MG PO PRN (06:10)
[2024-02-06] MEDS: LITHIUM CARBONATE 300 MG CAP PO ONE (12:35)
[2024-02-06] MEDS ORDERED: ALBUTEROL 90 MCG/ACT 8GM HFA INHALER INH PRN (15:15)
[2024-02-06 15:52] VITALS: BP 113/61; TEMP 97.6; O2SAT 100
[2024-02-06] MEDS: IBUPROFEN 400MG TAB PO PRN (17:40)
[2024-02-06] MEDS: QUEtiapine FUMARATE 50MG TAB PO SCH (20:17)
[2024-02-06] MEDS: LITHIUM CARBONATE 300 MG CAP PO SCH (20:17)
[2024-02-07] MEDS: FLUZONE VACCINE TRIVALENT PF(2024-25) 0.5ML SYRINGE IM.IMMUN ONE (08:43)
[2024-02-07] MEDS: QUEtiapine FUMARATE 100 MG TAB PO ONE (11:39)
[2024-02-07] MEDS ORDERED: CIPR-249 PO (12:37)
[2024-02-07] MEDS ORDERED: SERO200T PO (13:55)
[2024-02-07] MEDS ORDERED: LITH300C PO (13:55)
[2024-02-07] MEDS ORDERED: QUEtiapine FUMARATE 100 MG TAB PO SCH (21:00)
== END 2024-02-07 15:16 | disposition home or self-care (01) | DRG 753 ==
LOC: M ED 12:36 → M ED INP 18:13 → M PSY 21:30
PROVIDERS: ADMIT Psychiatry & Neurology Psychiatry; ATTEND Psychiatry & Neurology Psychiatry
DX: F31.9 Bipolar disorder, unspecified (principal); Z91.141 Patient's other noncompliance with medication regimen due to financial hardship; I10 Essential (primary) hypertension; F12.10 Cannabis abuse, uncomplicated; F60.3 Borderline personality disorder; E66.9 Obesity, unspecified; J45.909 Unspecified asthma, uncomplicated; K58.9 Irritable bowel syndrome, unspecified; F90.9 Attention-deficit hyperactivity disorder, unspecified type; Z59.00 Homelessness unspecified; T43.596A Underdosing of other antipsychotics and neuroleptics, initial encounter; F17.200 Nicotine dependence, unspecified, uncomplicated; Z62.810 Personal history of physical and sexual abuse in childhood; Z62.811 Personal history of psychological abuse in childhood; Z62.812 Personal history of neglect in childhood; Z79.899 Other long term (current) drug therapy

== ENCOUNTER 2024-02-13 20:39 | Emergency (ER) | payer SELFPAY ==
[~2024-02-13] VITALS: Ht 170.2 cm; Wt 95.0 kg
[~2024-02-13 20:39] MED LIST changes: +CIPR-249 PO; +SERO200T PO
[2024-02-13] MEDS: dexAMETHasone 20MG/5ML VIAL IV ONE (20:57)
[2024-02-13] MEDS: FAMOTIDINE 20MG/2ML VIAL IVP ONE (20:59)
[2024-02-13] MEDS: EXCEDRIN MIGRAINE TABLET PO STA (22:03)
[2024-02-13] MEDS ORDERED: PRED20TA PO (22:44)
[2024-02-13 22:50] VITALS: BP 97/67; TEMP 97.9; O2SAT 98
[2024-02-15] MEDS ORDERED: MEDR4PAK PO (21:12)
== END 2024-02-14 06:09 | disposition home or self-care (01) ==
LOC: M ED 20:39 → EDBD 20:39 → M ED 02-14 06:09
DX: R06.00 Dyspnea, unspecified (principal); F90.9 Attention-deficit hyperactivity disorder, unspecified type; F41.9 Anxiety disorder, unspecified; F32.A Depression, unspecified; F19.10 Other psychoactive substance abuse, uncomplicated; Z79.2 Long term (current) use of antibiotics; Z79.52 Long term (current) use of systemic steroids; Z79.899 Other long term (current) drug therapy
CPT/HCPCS: 71046; 96374; 96375; 99284; J1100; S0028

== ENCOUNTER 2024-02-15 13:55 | Emergency (ER) | payer SELFPAY ==
[~2024-02-15] VITALS: Ht 170.2 cm; Wt 102.2 kg
[~2024-02-15 13:55] MED LIST changes: +PRED20TA PO
[2024-02-15 14:45] LABS: HEMATOCRIT 37.1 % (36.0-47.0); HEMOGLOBIN 12.1 g/dl (12.0-15.5); MEAN CORPUSCULAR HGB CONC 32.6 g/dl (32.0-36.5); MEAN CORPUSCULAR VOLUME 92.1 fl (80.0-96.0); PLATELET COUNT, AUTOMATED 286 10^3/uL (150-450); RED BLOOD COUNT 4.03 10^6/uL (4.00-5.40); WHITE BLOOD COUNT 10.4 10^3/uL (4.0-10.0)
[2024-02-15 15:06] LABS: BARBITURATES URINE NEGATIVE (NEGATIVE); BENZODIAZEPINES URINE NEGATIVE (NEGATIVE); COCAINE METABOLITE URINE NEGATIVE (NEGATIVE); METHADONE URINE NEGATIVE (NEGATIVE); OPIATES URINE NEGATIVE (NEGATIVE); PHENCYCLIDINE URINE NEGATIVE (NEGATIVE)
[2024-02-15 15:08] LABS: ETHYL ALCOHOL (ETHANOL) < 0.003 % (0.000-0.010)
[2024-02-15 15:09] LABS: SALICYLATE LEVEL < 3.0 MG/DL (<30)
[2024-02-15 15:10] LABS: AMPHETAMINES LEVEL URINE POSITIVE (NEGATIVE); CANNABINOIDS URINE POSITIVE (NEGATIVE)
[2024-02-15 15:12] LABS: THYROID STIMULATING HORMONE 2.093 uIU/ML (0.55-4.78)
[2024-02-15 15:15] LABS: ALBUMIN 3.4 G/DL (3.2-5.2); ALKALINE PHOSPHATASE 72 U/L (35-104); ALT/SGPT 15 U/L (7.0-40); AST/SGOT 10 U/L (<34); BILIRUBIN,DIRECT 0.2 MG/DL (<0.4); BILIRUBIN,TOTAL 0.5 MG/DL (0.3-1.2); BLOOD UREA NITROGEN 12 MG/DL (9-23); CALCIUM LEVEL 8.5 MG/DL (8.5-10.1); CARBON DIOXIDE LEVEL 29 MMOL/L (20-31); CHLORIDE LEVEL 107 MMOL/L (98-107); GLOMERULAR FILTRATION RATE > 60.0 (>60); GLUCOSE, FASTING 92 MG/DL (60-100); POTASSIUM SERUM 3.5 MMOL/L (3.5-5.1); SODIUM LEVEL 142 MMOL/L (136-145); TOTAL PROTEIN 6.1 G/DL (5.7-8.2)
[2024-02-15 15:20] LABS: HCG, SERUM QUALITATIVE NEGATIVE (NEGATIVE)
[2024-02-15 21:00] VITALS: BP 138/84; TEMP 97.6; O2SAT 94
[2024-02-15] MEDS ORDERED: MEDR4PAK PO (21:12)
[2024-02-15] MEDS: methylPREDNISolone 125MG 2ML VIAL IM STA (21:15)
[2024-02-15] MEDS: ACETAMINOPHEN 325 MG TAB PO ONE (21:15)
== END 2024-02-15 22:04 | disposition home or self-care (01) ==
LOC: M ED 13:55
DX: F19.10 Other psychoactive substance abuse, uncomplicated (principal); F31.9 Bipolar disorder, unspecified; Z79.899 Other long term (current) drug therapy; Z79.52 Long term (current) use of systemic steroids
CPT/HCPCS: 80048; 80076; 80143; 80178; 80307; 82077; 84443; 84703; 85027; 96372; 99284; J2919

== ENCOUNTER 2024-02-28 22:16 | Emergency (ER) | payer SELFPAY ==
[~2024-02-28] VITALS: Ht 167.6 cm; Wt 102.2 kg
[~2024-02-28 22:16] MED LIST changes: +MEDR4PAK PO
[2024-02-28 22:20] VITALS: BP 122/83; TEMP 97.7; O2SAT 98
[2024-02-28 22:53] LABS: HEMATOCRIT 40.1 % (36.0-47.0); HEMOGLOBIN 13.4 g/dl (12.0-15.5); MEAN CORPUSCULAR HEMOGLOBIN 30.6 pg (27.0-33.0); MEAN CORPUSCULAR HGB CONC 33.4 g/dl (32.0-36.5); MEAN CORPUSCULAR VOLUME 91.6 fl (80.0-96.0); PLATELET COUNT, AUTOMATED 385 10^3/uL (150-450); RED BLOOD COUNT 4.38 10^6/uL (4.00-5.40); WHITE BLOOD COUNT 18.7 10^3/uL (4.0-10.0)
[2024-02-28] MEDS ORDERED: LITH300C PO (22:58)
[2024-02-28] MEDS ORDERED: HOME MED LIST COMPLETE! XX SCH (23:00)
[2024-02-28] MEDS: LORazepam 2 MG/ML 1ML VIAL IM STA (23:01)
[2024-02-28] MEDS: OLANZapine ORAL DISINTEGRATING TAB 5MG PO ONE (23:01)
[2024-02-28 23:20] LABS: BARBITURATES URINE NEGATIVE (NEGATIVE); BENZODIAZEPINES URINE NEGATIVE (NEGATIVE)
[2024-02-28 23:21] LABS: METHADONE URINE NEGATIVE (NEGATIVE); OPIATES URINE NEGATIVE (NEGATIVE); PHENCYCLIDINE URINE NEGATIVE (NEGATIVE)
[2024-02-28 23:23] LABS: ETHYL ALCOHOL (ETHANOL) 0.006 % (0.000-0.010)
[2024-02-28 23:23] LABS: AMPHETAMINES LEVEL URINE POSITIVE (NEGATIVE); CANNABINOIDS URINE POSITIVE (NEGATIVE); COCAINE METABOLITE URINE POSITIVE (NEGATIVE)
[2024-02-28 23:25] LABS: HCG, SERUM QUALITATIVE NEGATIVE (NEGATIVE); LITHIUM LEVEL < 0.10 MMOL/L (1.0-1.20); SALICYLATE LEVEL < 3.0 MG/DL (<30)
[2024-02-28 23:34] LABS: ALKALINE PHOSPHATASE 89 U/L (35-104); ALT/SGPT 25 U/L (7.0-40); AST/SGOT 29 U/L (<34); BILIRUBIN,DIRECT 0.3 MG/DL (<0.4); BILIRUBIN,TOTAL 0.9 MG/DL (0.3-1.2); BLOOD UREA NITROGEN 16 MG/DL (9-23); CALCIUM LEVEL 9.7 MG/DL (8.5-10.1); CARBON DIOXIDE LEVEL 26 MMOL/L (20-31); CHLORIDE LEVEL 107 MMOL/L (98-107); CREATININE FOR GFR 0.97 MG/DL (0.55-1.30); GLOMERULAR FILTRATION RATE > 60.0 (>60); GLUCOSE, FASTING 70 MG/DL (60-100); POTASSIUM SERUM 3.5 MMOL/L (3.5-5.1); SODIUM LEVEL 140 MMOL/L (136-145); THYROID STIMULATING HORMONE 1.807 uIU/ML (0.55-4.78); TOTAL PROTEIN 7.3 G/DL (5.7-8.2)
== END 2024-02-29 11:06 | disposition home or self-care (01) ==
LOC: M ED 22:16
DX: F19.14 Other psychoactive substance abuse with psychoactive substance-induced mood disorder (principal); I10 Essential (primary) hypertension; J45.909 Unspecified asthma, uncomplicated; F32.A Depression, unspecified; K21.9 Gastro-esophageal reflux disease without esophagitis; Z79.899 Other long term (current) drug therapy
CPT/HCPCS: 80048; 80076; 80143; 80178; 80307; 82077; 84443; 84703; 85027; 96372; 99285; J2060

== ENCOUNTER 2024-06-26 01:33 | Emergency (ER) | payer MEDICAID ==
[~2024-06-26] VITALS: Ht 167.6 cm; Wt 111.5 kg
[2024-06-26 01:36] VITALS: TEMP 97.8
[2024-06-26] MEDS ORDERED: NS (Normal Saline) 0.9% 1,000 ML IV ONE (02:05)
[2024-06-26 02:48] LABS: BASO % 0.3 % (0.0-1.0); EOS # 0.1 10^3/uL (0.0-0.5); HEMATOCRIT 36.2 % (36.0-47.0); HEMOGLOBIN 12.2 g/dl (12.0-15.5); LYMPH % 18.6 % (24.0-44.0); MEAN CORPUSCULAR HGB CONC 33.7 g/dl (32.0-36.5); MEAN CORPUSCULAR VOLUME 88.9 fl (80.0-96.0); MONO # 0.8 10^3/uL (0.0-0.8); MONO % 7.4 % (2.0-8.0); NEUTROPHILS # 7.6 10^3/uL (1.5-8.5); NEUTROPHILS % 72.2 % (36.0-66.0); PLATELET COUNT, AUTOMATED 338 10^3/uL (150-450); RED BLOOD COUNT 4.07 10^6/uL (4.00-5.40); WHITE BLOOD COUNT 10.5 10^3/uL (4.0-10.0)
[2024-06-26 03:19] LABS: HCG, SERUM QUALITATIVE NEGATIVE (NEGATIVE)
[2024-06-26 03:20] LABS: ETHYL ALCOHOL (ETHANOL) < 0.003 % (0.000-0.010)
[2024-06-26 03:21] LABS: ALBUMIN 3.8 G/DL (3.2-5.2); ALKALINE PHOSPHATASE 75 U/L (35-104); ALT/SGPT 23 U/L (7.0-40); AST/SGOT 47 U/L (<34); BILIRUBIN,DIRECT 0.2 MG/DL (<0.4); BILIRUBIN,TOTAL 0.6 MG/DL (0.3-1.2); BLOOD UREA NITROGEN 11 MG/DL (9-23); CALCIUM LEVEL 8.7 MG/DL (8.5-10.1); CARBON DIOXIDE LEVEL 20 MMOL/L (20-31); CHLORIDE LEVEL 107 MMOL/L (98-107); CREATININE FOR GFR 0.66 MG/DL (0.55-1.30); GLOMERULAR FILTRATION RATE > 60.0 (>60); GLUCOSE, FASTING 95 MG/DL (60-100); POTASSIUM SERUM 4.4 MMOL/L (3.5-5.1); SALICYLATE LEVEL < 3.0 MG/DL (<30); SODIUM LEVEL 137 MMOL/L (136-145); TOTAL PROTEIN 6.7 G/DL (5.7-8.2)
[2024-06-26 03:23] LABS: THYROID STIMULATING HORMONE 0.738 uIU/ML (0.55-4.78)
[2024-06-26 03:29] LABS: CPK CREATINE PHOSPHOKINASE 545 U/L (34-145)
[2024-06-26 03:35] LABS: BARBITURATES URINE NEGATIVE (NEGATIVE); BENZODIAZEPINES URINE NEGATIVE (NEGATIVE); COCAINE METABOLITE URINE NEGATIVE (NEGATIVE); METHADONE URINE NEGATIVE (NEGATIVE); OPIATES URINE NEGATIVE (NEGATIVE); PHENCYCLIDINE URINE NEGATIVE (NEGATIVE)
[2024-06-26 03:40] LABS: AMPHETAMINES LEVEL URINE POSITIVE (NEGATIVE); CANNABINOIDS URINE POSITIVE (NEGATIVE)
[2024-06-26 05:00] VITALS: BP 115/62
[2024-06-26 05:03] VITALS: O2SAT 98
== END 2024-06-26 07:17 | disposition home or self-care (01) ==
LOC: M ED 01:33
DX: Z76.5 Malingerer [conscious simulation] (principal); F41.9 Anxiety disorder, unspecified; F12.10 Cannabis abuse, uncomplicated; F15.10 Other stimulant abuse, uncomplicated; I45.81 Long QT syndrome; Z79.899 Other long term (current) drug therapy

== ENCOUNTER 2024-07-08 07:53 | Emergency (ER) | payer MEDICAID ==
[~2024-07-08] VITALS: Ht 170.2 cm; Wt 109.9 kg
[2024-07-08 08:03] VITALS: BP 125/77; TEMP 97.2; O2SAT 98
== END 2024-07-08 11:07 | disposition left against medical advice (07) ==
LOC: M ED 07:53
DX: Z53.21 Procedure and treatment not carried out due to patient leaving prior to being seen by health care provider (principal)

== ENCOUNTER 2024-07-21 09:49 | Emergency (ER) | payer MEDICAID ==
[~2024-07-21] VITALS: Ht 170.2 cm; Wt 106.6 kg
[2024-07-21 11:53] LABS: BASO % 0.3 % (0.0-1.0); EOS # 0.2 10^3/uL (0.0-0.5); EOS % 1.9 % (0.0-3.0); HEMATOCRIT 41.4 % (36.0-47.0); HEMOGLOBIN 13.5 g/dl (12.0-15.5); LYMPH # 1.7 10^3/uL (1.5-5.0); LYMPH % 16.6 % (24.0-44.0); MEAN CORPUSCULAR HEMOGLOBIN 29.2 pg (27.0-33.0); MEAN CORPUSCULAR HGB CONC 32.6 g/dl (32.0-36.5); MEAN CORPUSCULAR VOLUME 89.6 fl (80.0-96.0); MONO # 0.6 10^3/uL (0.0-0.8); NEUTROPHILS # 7.5 10^3/uL (1.5-8.5); NEUTROPHILS % 74.8 % (36.0-66.0); PLATELET COUNT, AUTOMATED 291 10^3/uL (150-450); RED BLOOD COUNT 4.62 10^6/uL (4.00-5.40)
[2024-07-21 12:22] LABS: BLOOD UREA NITROGEN 12 MG/DL (9-23); CALCIUM LEVEL 8.8 MG/DL (8.5-10.1); CARBON DIOXIDE LEVEL 26 MMOL/L (20-31); CHLORIDE LEVEL 108 MMOL/L (98-107); CREATININE FOR GFR 0.67 MG/DL (0.55-1.30); GLOMERULAR FILTRATION RATE > 90.0 (>60); GLUCOSE, FASTING 105 MG/DL (60-100); POTASSIUM SERUM 4.1 MMOL/L (3.5-5.1); SODIUM LEVEL 143 MMOL/L (136-145)
[2024-07-21 12:25] LABS: THYROID STIMULATING HORMONE 0.348 uIU/ML (0.55-4.78)
[2024-07-21 12:30] LABS: HCG, SERUM QUALITATIVE NEGATIVE (NEGATIVE)
[2024-07-21 14:26] VITALS: BP 124/67; TEMP 96.7; O2SAT 97
== END 2024-07-21 14:49 | disposition home or self-care (01) ==
LOC: M ED 09:49
DX: F19.10 Other psychoactive substance abuse, uncomplicated (principal); K58.9 Irritable bowel syndrome, unspecified; I10 Essential (primary) hypertension; J45.909 Unspecified asthma, uncomplicated; F90.9 Attention-deficit hyperactivity disorder, unspecified type; F41.9 Anxiety disorder, unspecified; F32.A Depression, unspecified

== ENCOUNTER 2024-08-03 18:15 | Inpatient (IN) | payer MEDICAID, SELFPAY ==
[~2024-08-03] VITALS: Ht 170.2 cm; Wt 108.5 kg
[2024-08-03] MEDS: LORazepam 2 MG/ML 1ML VIAL IV STA (18:35)
[2024-08-03] MEDS: NS (Normal Saline) 0.9% 1,000 ML IV ONE (18:35)
[2024-08-03 18:49] LABS: BASO # 0.1 10^3/uL (0.0-0.2); BASO % 0.3 % (0.0-1.0); EOS # 0.1 10^3/uL (0.0-0.5); EOS % 0.3 % (0.0-3.0); HEMATOCRIT 41.1 % (36.0-47.0); HEMOGLOBIN 13.9 g/dl (12.0-15.5); LYMPH # 2.5 10^3/uL (1.5-5.0); LYMPH % 14.3 % (24.0-44.0); MEAN CORPUSCULAR HEMOGLOBIN 29.6 pg (27.0-33.0); MEAN CORPUSCULAR HGB CONC 33.8 g/dl (32.0-36.5); MEAN CORPUSCULAR VOLUME 87.6 fl (80.0-96.0); MONO # 1.2 10^3/uL (0.0-0.8); MONO % 6.7 % (2.0-8.0); NEUTROPHILS # 13.6 10^3/uL (1.5-8.5); NEUTROPHILS % 78.1 % (36.0-66.0); PLATELET COUNT, AUTOMATED 375 10^3/uL (150-450); RED BLOOD COUNT 4.69 10^6/uL (4.00-5.40); WHITE BLOOD COUNT 17.4 10^3/uL (4.0-10.0)
[2024-08-03] MEDS: OLANZapine INTRAMUSCULAR 10MG VIAL IM ONE (18:57)
[2024-08-03] MEDS: diphenhydrAMINE 50MG/ML VIAL IM ONE (18:57)
[2024-08-03] MEDS: LORazepam 2 MG/ML 1ML VIAL IM ONE (18:58)
[2024-08-03 19:13] LABS: ETHYL ALCOHOL (ETHANOL) 0.004 % (0.000-0.010)
[2024-08-03 19:14] LABS: SALICYLATE LEVEL < 3.0 MG/DL (<30)
[2024-08-03 19:15] LABS: CPK CREATINE PHOSPHOKINASE 433 U/L (34-145)
[2024-08-03 19:20] LABS: ALBUMIN 4.3 G/DL (3.2-5.2); ALKALINE PHOSPHATASE 80 U/L (35-104); ALT/SGPT 25 U/L (7.0-40); AST/SGOT 36 U/L (<34); BILIRUBIN,DIRECT 0.6 MG/DL (<0.4); BILIRUBIN,TOTAL 2.1 MG/DL (0.3-1.2); BLOOD UREA NITROGEN 18 MG/DL (9-23); CALCIUM LEVEL 9.9 MG/DL (8.5-10.1); CARBON DIOXIDE LEVEL 22 MMOL/L (20-31); CHLORIDE LEVEL 106 MMOL/L (98-107); CREATININE FOR GFR 0.86 MG/DL (0.55-1.30); GLOMERULAR FILTRATION RATE > 90.0 (>60); GLUCOSE, FASTING 76 MG/DL (60-100); SODIUM LEVEL 141 MMOL/L (136-145); THYROID STIMULATING HORMONE 1.067 uIU/ML (0.55-4.78); TOTAL PROTEIN 7.4 G/DL (5.7-8.2)
[2024-08-04 07:19] LABS: APPEARANCE, URINE CLOUDY (CLEAR); BACTERIA, URINE AUTO NEGATIVE (NEGATIVE); BILIRUBIN, URINE AUTO NEGATIVE (NEGATIVE); BLOOD, URINE BLOOD NEGATIVE (NEGATIVE); COLOR, URINE AMBER (YELLOW); GLUCOSE, URINE (UA) AUTO NEGATIVE (NEGATIVE); KETONE, URINE AUTO 1+ mg/dL (NEGATIVE); LEUKOCYTE ESTERASE, URINE AUTO NEGATIVE (NEGATIVE); MUCUS, URINE LARGE (NEGATIVE); NITRITE, URINE AUTO NEGATIVE (NEGATIVE); PROTEIN, URINE AUTO 1+ mg/dL (NEGATIVE); RBC, URINE AUTO 3 /HPF (0-3); SPECIFIC GRAVITY URINE AUTO 1.036 (1.002-1.035); SQUAMOUS EPITHELIAL CELL UR AU 17 /HPF (0-6); WBC, URINE AUTO 6 /HPF (0-3)
[2024-08-04] MEDS: OLANZapine INTRAMUSCULAR 10MG VIAL IM ONE (07:24)
[2024-08-04] MEDS: LORazepam 2 MG/ML 1ML VIAL IM ONE (07:25)
[2024-08-04 08:08] LABS: BARBITURATES URINE NEGATIVE (NEGATIVE); BENZODIAZEPINES URINE NEGATIVE (NEGATIVE); COCAINE METABOLITE URINE NEGATIVE (NEGATIVE); METHADONE URINE NEGATIVE (NEGATIVE); OPIATES URINE NEGATIVE (NEGATIVE); PHENCYCLIDINE URINE NEGATIVE (NEGATIVE)
[2024-08-04 08:10] LABS: AMPHETAMINES LEVEL URINE POSITIVE (NEGATIVE); CANNABINOIDS URINE POSITIVE (NEGATIVE)
[2024-08-04] MEDS ORDERED: MED REC CURRENTLY UNOBTAINABLE XX SCH (14:50)
[2024-08-04] MEDS ORDERED: MAALOX 30 ML SUSP *UDC PO PRN (17:40)
[2024-08-04] MEDS ORDERED: ACETAMINOPHEN 325 MG TAB PO PRN (17:40)
[2024-08-04] MEDS ORDERED: MOM 30ML SUSPENSION UDC PO PRN (17:40)
[2024-08-04] MEDS ORDERED: IBUPROFEN 400MG TAB PO PRN (17:40)
[2024-08-04] MEDS ORDERED: traZODone 50 MG TAB PO PRN (17:40)
[2024-08-05] MEDS ORDERED: HOME MED LIST COMPLETE! XX SCH (07:05)
[2024-08-05] MEDS: OLANZapine ORAL DISINTEGRATING TAB 5MG PO PRN (10:07)
[2024-08-05] MEDS: LORazepam 2 MG TAB PO ONE ×2 (10:29→17:31)
[2024-08-05] MEDS: GABAPENTIN 300 MG CAP PO ONE (16:03)
[2024-08-05] MEDS: GABAPENTIN 100 MG CAP PO SCH (21:00)
[2024-08-06] MEDS: OLANZapine ORAL DISINTEGRATING TAB 5MG PO ONE (11:14)
[2024-08-06] MEDS: OLANZapine ORAL DISINTEGRATING TAB 5MG PO PRN (16:43)
[2024-08-06] MEDS: diphenhydrAMINE 25MG CAP PO PRN (16:43)
[2024-08-07 06:28] VITALS: BP 127/69; TEMP 96.8; O2SAT 96
[2024-08-07] MEDS ORDERED: OLAN1TAB20 PO (09:29)
[2024-08-07] MEDS ORDERED: GABA-1171 PO (09:29)
== END 2024-08-07 12:45 | disposition home or self-care (01) | DRG 753 ==
LOC: M ED 18:15 → M ED INP 08-04 17:38 → M PSY 08-05 08:48
PROVIDERS: ADMIT Student in an Organized Health Care Education/Training Program; ATTEND Student in an Organized Health Care Education/Training Program
DX: F31.9 Bipolar disorder, unspecified (principal); F60.3 Borderline personality disorder; I10 Essential (primary) hypertension; J45.909 Unspecified asthma, uncomplicated; F90.9 Attention-deficit hyperactivity disorder, unspecified type; F15.90 Other stimulant use, unspecified, uncomplicated; K58.9 Irritable bowel syndrome, unspecified; E66.9 Obesity, unspecified; F17.210 Nicotine dependence, cigarettes, uncomplicated; E80.6 Other disorders of bilirubin metabolism; R74.01 Elevation of levels of liver transaminase levels; Z59.00 Homelessness unspecified; Z78.1 Physical restraint status; Z62.811 Personal history of psychological abuse in childhood

== ENCOUNTER 2024-08-10 13:43 | Emergency (ER) | payer MEDICAID ==
[~2024-08-10] VITALS: Ht 175.3 cm; Wt 78.0 kg
[~2024-08-10 13:43] MED LIST changes: +GABA-1171 PO
[2024-08-10 14:35] LABS: HEMATOCRIT 46.7 % (36.0-47.0); HEMOGLOBIN 15.2 g/dl (12.0-15.5); MEAN CORPUSCULAR HEMOGLOBIN 29.4 pg (27.0-33.0); MEAN CORPUSCULAR HGB CONC 32.5 g/dl (32.0-36.5); MEAN CORPUSCULAR VOLUME 90.3 fl (80.0-96.0); PLATELET COUNT, AUTOMATED 419 10^3/uL (150-450); RED BLOOD COUNT 5.17 10^6/uL (4.00-5.40); WHITE BLOOD COUNT 16.4 10^3/uL (4.0-10.0)
[2024-08-10] MEDS: OLANZapine INTRAMUSCULAR 10MG VIAL IM ONE (14:51)
[2024-08-10] MEDS: LORazepam 2 MG/ML 1ML VIAL IM ONE (14:52)
[2024-08-10 15:05] LABS: AMPHETAMINES LEVEL URINE POSITIVE (NEGATIVE); BARBITURATES URINE NEGATIVE (NEGATIVE); BENZODIAZEPINES URINE NEGATIVE (NEGATIVE); CANNABINOIDS URINE POSITIVE (NEGATIVE); COCAINE METABOLITE URINE NEGATIVE (NEGATIVE); METHADONE URINE NEGATIVE (NEGATIVE); OPIATES URINE NEGATIVE (NEGATIVE); PHENCYCLIDINE URINE NEGATIVE (NEGATIVE)
[2024-08-10 15:07] LABS: ETHYL ALCOHOL (ETHANOL) < 0.003 % (0.000-0.010)
[2024-08-10 15:09] LABS: ALBUMIN 4.5 G/DL (3.2-5.2); ALKALINE PHOSPHATASE 81 U/L (35-104); ALT/SGPT 21 U/L (7.0-40); AST/SGOT 25 U/L (<34); BILIRUBIN,DIRECT 0.3 MG/DL (<0.4); BILIRUBIN,TOTAL 0.8 MG/DL (0.3-1.2); BLOOD UREA NITROGEN 17 MG/DL (9-23); CALCIUM LEVEL 10.4 MG/DL (8.5-10.1); CARBON DIOXIDE LEVEL 24 MMOL/L (20-31); CHLORIDE LEVEL 105 MMOL/L (98-107); GLOMERULAR FILTRATION RATE 75.8 (>60); GLUCOSE, FASTING 81 MG/DL (60-100); POTASSIUM SERUM 4.6 MMOL/L (3.5-5.1); SALICYLATE LEVEL < 3.0 MG/DL (<30); SODIUM LEVEL 140 MMOL/L (136-145); TOTAL PROTEIN 7.7 G/DL (5.7-8.2)
[2024-08-10 15:11] LABS: THYROID STIMULATING HORMONE 1.103 uIU/ML (0.55-4.78)
[2024-08-10 15:20] LABS: HCG, SERUM QUALITATIVE NEGATIVE (NEGATIVE)
[2024-08-10] MEDS ORDERED: OLAN1TAB20 PO (17:31)
[2024-08-10] MEDS ORDERED: GABA-1171 PO (17:31)
[2024-08-10] MEDS ORDERED: HOME MED LIST COMPLETE! XX SCH (17:35)
[2024-08-11] MEDS: LORazepam 1 MG TAB PO ONE (08:20)
[2024-08-11] MEDS: ACETAMINOPHEN 325 MG TAB PO ONE (08:20)
[2024-08-11 09:37] VITALS: BP 111/78; TEMP 98.8; O2SAT 100
== END 2024-08-11 09:52 | disposition home or self-care (01) ==
LOC: M ED 13:43
DX: F43.0 Acute stress reaction (principal); I10 Essential (primary) hypertension; F90.9 Attention-deficit hyperactivity disorder, unspecified type; Z79.899 Other long term (current) drug therapy
CPT/HCPCS: 80048; 80076; 80143; 80307; 82077; 84443; 84703; 85027; 96372; 99284; J2060; J2359

== ENCOUNTER 2024-08-22 04:04 | Emergency (ER) | payer MEDICAID ==
[~2024-08-22] VITALS: Ht 170.2 cm; Wt 103.4 kg
[2024-08-22 04:10] VITALS: TEMP 96.9; O2SAT 97
== END 2024-08-22 04:50 | disposition left against medical advice (07) ==
LOC: M ED 04:04
DX: Z53.21 Procedure and treatment not carried out due to patient leaving prior to being seen by health care provider (principal)

== ENCOUNTER 2024-08-26 13:50 | Emergency (ER) | payer MEDICAID ==
[2024-08-26 14:46] LABS: HEMATOCRIT 40.7 % (36.0-47.0); HEMOGLOBIN 13.3 g/dl (12.0-15.5); MEAN CORPUSCULAR HEMOGLOBIN 29.8 pg (27.0-33.0); MEAN CORPUSCULAR HGB CONC 32.7 g/dl (32.0-36.5); MEAN CORPUSCULAR VOLUME 91.1 fl (80.0-96.0); PLATELET COUNT, AUTOMATED 312 10^3/uL (150-450); RED BLOOD COUNT 4.47 10^6/uL (4.00-5.40); WHITE BLOOD COUNT 11.2 10^3/uL (4.0-10.0)
[2024-08-26 14:55] LABS: BARBITURATES URINE NEGATIVE (NEGATIVE); BENZODIAZEPINES URINE NEGATIVE (NEGATIVE); METHADONE URINE NEGATIVE (NEGATIVE); OPIATES URINE NEGATIVE (NEGATIVE); PHENCYCLIDINE URINE NEGATIVE (NEGATIVE)
[2024-08-26 14:56] LABS: AMPHETAMINES LEVEL URINE POSITIVE (NEGATIVE); CANNABINOIDS URINE POSITIVE (NEGATIVE); COCAINE METABOLITE URINE POSITIVE (NEGATIVE)
[2024-08-26 15:03] LABS: ETHYL ALCOHOL (ETHANOL) < 0.003 % (0.000-0.010); HCG, SERUM QUALITATIVE NEGATIVE (NEGATIVE)
[2024-08-26 15:04] LABS: ALKALINE PHOSPHATASE 75 U/L (35-104); ALT/SGPT 20 U/L (7.0-40); AST/SGOT 24 U/L (<34); BILIRUBIN,DIRECT 0.4 MG/DL (<0.4); BILIRUBIN,TOTAL 1.3 MG/DL (0.3-1.2); BLOOD UREA NITROGEN 10 MG/DL (9-23); CALCIUM LEVEL 9.4 MG/DL (8.5-10.1); CARBON DIOXIDE LEVEL 23 MMOL/L (20-31); CHLORIDE LEVEL 107 MMOL/L (98-107); GLOMERULAR FILTRATION RATE > 90.0 (>60); GLUCOSE, FASTING 79 MG/DL (60-100); POTASSIUM SERUM 3.7 MMOL/L (3.5-5.1); SALICYLATE LEVEL < 3.0 MG/DL (<30); SODIUM LEVEL 142 MMOL/L (136-145); TOTAL PROTEIN 6.6 G/DL (5.7-8.2)
[2024-08-26 15:07] LABS: THYROID STIMULATING HORMONE 0.997 uIU/ML (0.55-4.78)
[2024-08-26] MEDS: LORazepam 1 MG TAB PO STA (18:01)
[2024-08-26] MEDS: OLANZapine ORAL DISINTEGRATING TAB 5MG PO ONE (19:10)
[2024-08-27 09:42] VITALS: BP 122/91; TEMP 97.3; O2SAT 99
== END 2024-08-27 11:54 | disposition home or self-care (01) ==
LOC: M ED 13:50
DX: F15.159 Other stimulant abuse with stimulant-induced psychotic disorder, unspecified (principal); I10 Essential (primary) hypertension; J45.909 Unspecified asthma, uncomplicated; K58.9 Irritable bowel syndrome, unspecified; F31.9 Bipolar disorder, unspecified; F90.9 Attention-deficit hyperactivity disorder, unspecified type; F19.10 Other psychoactive substance abuse, uncomplicated; Z79.899 Other long term (current) drug therapy

== ENCOUNTER → 2024-08-29 | Outpatient (REF) | payer MEDICAID, OTHER ==
[2024-08-29 15:03] LABS: BASO % 0.5 % (0.0-1.0); EOS # 0.1 10^3/uL (0.0-0.5); EOS % 2.1 % (0.0-3.0); HEMATOCRIT 40.9 % (36.0-47.0); LYMPH # 1.3 10^3/uL (1.5-5.0); LYMPH % 20.2 % (24.0-44.0); MEAN CORPUSCULAR HEMOGLOBIN 29.8 pg (27.0-33.0); MEAN CORPUSCULAR HGB CONC 31.8 g/dl (32.0-36.5); MEAN CORPUSCULAR VOLUME 93.8 fl (80.0-96.0); MONO # 0.5 10^3/uL (0.0-0.8); MONO % 8.6 % (2.0-8.0); NEUTROPHILS # 4.2 10^3/uL (1.5-8.5); NEUTROPHILS % 68.4 % (36.0-66.0); PLATELET COUNT, AUTOMATED 271 10^3/uL (150-450); RED BLOOD COUNT 4.36 10^6/uL (4.00-5.40); WHITE BLOOD COUNT 6.2 10^3/uL (4.0-10.0)
[2024-08-29 15:04] LABS: C REACTIVE PROTEIN QUANTITATIV < 0.50 MG/DL (<1.0)
[2024-08-29 15:06] LABS: RHEUMATOID FACTOR QUANT 3.7 IU/ML (<14)
[2024-08-29 15:09] LABS: ALBUMIN 3.5 G/DL (3.2-5.2); ALKALINE PHOSPHATASE 79 U/L (35-104); ALT/SGPT 18 U/L (7.0-40); AST/SGOT 12 U/L (<34); BILIRUBIN,TOTAL 0.3 MG/DL (0.3-1.2); BLOOD UREA NITROGEN 6 MG/DL (9-23); CALCIUM LEVEL 8.8 MG/DL (8.5-10.1); CARBON DIOXIDE LEVEL 28 MMOL/L (20-31); CHLORIDE LEVEL 107 MMOL/L (98-107); CREATININE FOR GFR 0.62 MG/DL (0.55-1.30); GLOMERULAR FILTRATION RATE > 90.0 (>60); GLUCOSE, FASTING 94 MG/DL (60-100); POTASSIUM SERUM 4.6 MMOL/L (3.5-5.1); SODIUM LEVEL 143 MMOL/L (136-145); TOTAL PROTEIN 6.2 G/DL (5.7-8.2); URIC ACID 5.4 MG/DL (3.1-7.8)
[2024-08-29 15:16] LABS: ERYTHROCYTE SEDIMENTATION RATE 4 mm/hr (0-20)
[2024-08-31 14:47] LABS: ANA SCREEN, IFA NEGATIVE (NEGATIVE)
[2024-08-31 15:24] LABS: SSA SJOGRENS A <1.0 NEG AI (<1.0 NEG); SSB SJOGRENS B <1.0 NEG AI (<1.0 NEG)
== END ==
LOC: M LAB REF 12:05
PROVIDERS: ATTEND Physician Assistant
DX: J02.9 Acute pharyngitis, unspecified (principal); M79.89 Other specified soft tissue disorders

== ENCOUNTER 2024-11-09 06:01 | Emergency (ER) | payer OTHER, MEDICAID ==
[~2024-11-09 06:01] MED LIST changes: -ABIL400I IM; +ARIP400S IM; +DEPA250T PO; -DEPA250T2 PO; +DIVA-41 PO; -DIVA500T94 PO; +EMTR1TAB16 PO; +RALT40TA PO
[2024-11-09 07:17] LABS: PLATELET COUNT, AUTOMATED 313 10^3/uL (150-450)
[2024-11-09 07:30] LABS: BARBITURATES URINE NEGATIVE (NEGATIVE); BENZODIAZEPINES URINE NEGATIVE (NEGATIVE); COCAINE METABOLITE URINE NEGATIVE (NEGATIVE); METHADONE URINE NEGATIVE (NEGATIVE); OPIATES URINE NEGATIVE (NEGATIVE)
[2024-11-09 07:32] LABS: ETHYL ALCOHOL (ETHANOL) 0.004 % (0.000-0.010)
[2024-11-09 07:34] LABS: ALT/SGPT 19 U/L (7.0-40); AST/SGOT 33 U/L (<34); CALCIUM LEVEL 9.3 MG/DL (8.5-10.1); CARBON DIOXIDE LEVEL 22 MMOL/L (20-31); CHLORIDE LEVEL 103 MMOL/L (98-107); CREATININE FOR GFR 0.74 MG/DL (0.55-1.30); GLOMERULAR FILTRATION RATE > 90.0 (>60); POTASSIUM SERUM 3.6 MMOL/L (3.5-5.1); SALICYLATE LEVEL < 3.0 MG/DL (<30); SODIUM LEVEL 140 MMOL/L (136-145)
[2024-11-09 07:36] LABS: HCG, SERUM QUALITATIVE NEGATIVE (NEGATIVE)
[2024-11-09 07:38] LABS: AMPHETAMINES LEVEL URINE POSITIVE (NEGATIVE); CANNABINOIDS URINE POSITIVE (NEGATIVE); PHENCYCLIDINE URINE NEGATIVE (NEGATIVE)
[2024-11-09] MEDS ORDERED: HOME MED LIST COMPLETE! XX SCH (10:15)
[2024-11-09 12:06] VITALS: BP 134/80; TEMP 97.4; O2SAT 99
== END 2024-11-09 12:34 | disposition home or self-care (01) ==
LOC: M ED 06:01
DX: F19.10 Other psychoactive substance abuse, uncomplicated (principal)

== ENCOUNTER 2024-11-10 03:35 | Emergency (ER) | payer OTHER, MEDICAID ==
[~2024-11-10] VITALS: Ht 175.3 cm; Wt 92.6 kg
[2024-11-10 04:05] LABS: PLATELET COUNT, AUTOMATED 331 10^3/uL (150-450)
[2024-11-10 04:27] LABS: ETHYL ALCOHOL (ETHANOL) < 0.003 % (0.000-0.010)
[2024-11-10 04:29] LABS: ALT/SGPT 19 U/L (7.0-40); AST/SGOT 36 U/L (<34); CALCIUM LEVEL 9.2 MG/DL (8.5-10.1); CARBON DIOXIDE LEVEL 25 MMOL/L (20-31); CHLORIDE LEVEL 102 MMOL/L (98-107); CREATININE FOR GFR 0.73 MG/DL (0.55-1.30); GLOMERULAR FILTRATION RATE > 90.0 (>60); POTASSIUM SERUM 3.8 MMOL/L (3.5-5.1); SALICYLATE LEVEL < 3.0 MG/DL (<30); SODIUM LEVEL 138 MMOL/L (136-145)
[2024-11-10 05:47] LABS: BARBITURATES URINE NEGATIVE (NEGATIVE); BENZODIAZEPINES URINE NEGATIVE (NEGATIVE); COCAINE METABOLITE URINE NEGATIVE (NEGATIVE); METHADONE URINE NEGATIVE (NEGATIVE); OPIATES URINE NEGATIVE (NEGATIVE); PHENCYCLIDINE URINE NEGATIVE (NEGATIVE)
[2024-11-10 05:50] LABS: AMPHETAMINES LEVEL URINE POSITIVE (NEGATIVE); CANNABINOIDS URINE POSITIVE (NEGATIVE)
[2024-11-10] MEDS: diphenhydrAMINE 50 MG/ML VIAL IM ONE (06:10)
[2024-11-10] MEDS: HALOPERIDOL LACTATE 5 MG/ML VIAL IM ONE (06:10)
[2024-11-10] MEDS ORDERED: HOME MED LIST COMPLETE! XX SCH (07:30)
[2024-11-10 14:30] VITALS: BP 148/63; TEMP 97.2; O2SAT 98
== END 2024-11-10 17:09 | disposition home or self-care (01) ==
LOC: M ED 03:35
DX: F15.159 Other stimulant abuse with stimulant-induced psychotic disorder, unspecified (principal); S92.355A Nondisplaced fracture of fifth metatarsal bone, left foot, initial encounter for closed fracture; Y92.9 Unspecified place or not applicable; Y93.9 Activity, unspecified; Y99.9 Unspecified external cause status; F31.9 Bipolar disorder, unspecified

== ENCOUNTER 2024-11-10 23:37 | Emergency (ER) | payer MEDICAID, OTHER ==
[~2024-11-10] VITALS: Ht 172.7 cm; Wt 112.0 kg
[2024-11-11 00:32] LABS: PLATELET COUNT, AUTOMATED 337 10^3/uL (150-450)
[2024-11-11 00:57] LABS: BARBITURATES URINE NEGATIVE (NEGATIVE); BENZODIAZEPINES URINE NEGATIVE (NEGATIVE); COCAINE METABOLITE URINE NEGATIVE (NEGATIVE)
[2024-11-11 00:58] LABS: METHADONE URINE NEGATIVE (NEGATIVE); OPIATES URINE NEGATIVE (NEGATIVE); PHENCYCLIDINE URINE NEGATIVE (NEGATIVE)
[2024-11-11 00:59] LABS: AMPHETAMINES LEVEL URINE POSITIVE (NEGATIVE); CANNABINOIDS URINE POSITIVE (NEGATIVE); ETHYL ALCOHOL (ETHANOL) < 0.003 % (0.000-0.010)
[2024-11-11 01:00] LABS: SALICYLATE LEVEL < 3.0 MG/DL (<30)
[2024-11-11 01:05] LABS: ALT/SGPT 21 U/L (7.0-40); AST/SGOT 44 U/L (<34); CALCIUM LEVEL 9.0 MG/DL (8.5-10.1); CARBON DIOXIDE LEVEL 25 MMOL/L (20-31); CHLORIDE LEVEL 102 MMOL/L (98-107); CREATININE FOR GFR 0.71 MG/DL (0.55-1.30); GLOMERULAR FILTRATION RATE > 90.0 (>60); POTASSIUM SERUM 4.0 MMOL/L (3.5-5.1); SODIUM LEVEL 138 MMOL/L (136-145)
[2024-11-11 05:02] VITALS: BP 138/57
[2024-11-11 07:38] VITALS: TEMP 98.7; O2SAT 99
== END 2024-11-11 07:48 | disposition home or self-care (01) ==
LOC: M ED 23:37
DX: Z76.5 Malingerer [conscious simulation] (principal); F15.10 Other stimulant abuse, uncomplicated; F90.9 Attention-deficit hyperactivity disorder, unspecified type; F41.9 Anxiety disorder, unspecified; F32.A Depression, unspecified; Z79.899 Other long term (current) drug therapy
CPT/HCPCS: 36415; 73630; 80048; 80076; 80143; 80307; 82077; 84443; 85027; 96372; 99284; 99285; J1200; J1630; J2060

== ENCOUNTER 2024-11-12 00:11 | Emergency (ER) | payer MEDICAID, OTHER ==
[~2024-11-12] VITALS: Ht 170.2 cm; Wt 94.0 kg
[2024-11-12 00:29] VITALS: BP 120/75; TEMP 97; O2SAT 98
[2024-11-13] MEDS ORDERED: TRAZ-252 PO (10:19)
[2024-11-13] MEDS ORDERED: OLAN1TAB20 PO (10:19)
== END 2024-11-12 00:48 | disposition left against medical advice (07) ==
LOC: M ED 00:11 → EDBD 00:11 → M ED 00:48
DX: Z53.21 Procedure and treatment not carried out due to patient leaving prior to being seen by health care provider (principal)

== ENCOUNTER 2024-11-12 08:28 | Inpatient (IN) | payer OTHER ==
[2024-11-12] MEDS: diphenhydrAMINE 50 MG/ML VIAL IM ONE (09:12)
[2024-11-12] MEDS: HALOPERIDOL LACTATE 5 MG/ML VIAL IM ONE (09:13)
[2024-11-12 11:24] VITALS: BP 113/68; TEMP 97; O2SAT 100
[2024-11-12 12:09] LABS: BARBITURATES URINE NEGATIVE (NEGATIVE); COCAINE METABOLITE URINE NEGATIVE (NEGATIVE)
[2024-11-12 12:10] LABS: METHADONE URINE NEGATIVE (NEGATIVE); OPIATES URINE NEGATIVE (NEGATIVE); PHENCYCLIDINE URINE NEGATIVE (NEGATIVE)
[2024-11-12 12:11] LABS: AMPHETAMINES LEVEL URINE POSITIVE (NEGATIVE); BENZODIAZEPINES URINE POSITIVE (NEGATIVE); CANNABINOIDS URINE POSITIVE (NEGATIVE)
[2024-11-12] MEDS ORDERED: traZODone 50 MG TAB PO PRN (12:55)
[2024-11-12] MEDS ORDERED: IBUPROFEN 400 MG TAB PO PRN (12:55)
[2024-11-12] MEDS ORDERED: MOM 30 ML SUSPENSION UDC PO PRN (12:55)
[2024-11-12] MEDS ORDERED: MAALOX 30 ML SUSP *UDC PO PRN (12:55)
[2024-11-12] MEDS ORDERED: ACETAMINOPHEN 325 MG TAB PO PRN (12:55)
[2024-11-12] MEDS ORDERED: HOME MED LIST COMPLETE! XX SCH (13:40)
[2024-11-12] MEDS: HALOPERIDOL LACTATE 5 MG/ML VIAL IM STA (19:52)
[2024-11-12] MEDS: diphenhydrAMINE 50 MG/ML VIAL IM STA (19:53)
[2024-11-12 20:32] LABS: PLATELET COUNT, AUTOMATED 302 10^3/uL (150-450)
[2024-11-12 20:55] LABS: ALT/SGPT 23 U/L (7.0-40); AST/SGOT 44 U/L (<34); CALCIUM LEVEL 8.3 MG/DL (8.5-10.1); CARBON DIOXIDE LEVEL 25 MMOL/L (20-31); CHLORIDE LEVEL 106 MMOL/L (98-107); CPK CREATINE PHOSPHOKINASE 709 U/L (34-145); CREATININE FOR GFR 0.72 MG/DL (0.55-1.30); GLOMERULAR FILTRATION RATE > 90.0 (>60); POTASSIUM SERUM 4.0 MMOL/L (3.5-5.1); SODIUM LEVEL 143 MMOL/L (136-145)
[2024-11-12] MEDS: OLANZapine 10 MG TAB PO SCH (21:00)
[2024-11-12 21:51] LABS: RSV AMPLIFICATION NEGATIVE (NEGATIVE)
[2024-11-13] MEDS ORDERED: TRAZ-252 PO (10:19)
[2024-11-13] MEDS ORDERED: OLAN1TAB20 PO (10:19)
[2024-11-13] MEDS: HALOPERIDOL 5 MG TAB PO ONE (10:23)
== END 2024-11-13 15:19 | disposition home or self-care (01) | DRG 776 ==
LOC: M ED 08:28 → M ED INP 12:53 → M PSY 15:02
PROVIDERS: ADMIT General Practice; ATTEND Psychiatry & Neurology Psychiatry
DX: F15.14 Other stimulant abuse with stimulant-induced mood disorder (principal); Z78.1 Physical restraint status; F31.9 Bipolar disorder, unspecified; F60.3 Borderline personality disorder; Z79.899 Other long term (current) drug therapy; Z91.148 Patient's other noncompliance with medication regimen for other reason; Z59.01 Sheltered homelessness; Z56.0 Unemployment, unspecified; F17.200 Nicotine dependence, unspecified, uncomplicated

== ENCOUNTER 2024-11-14 18:01 | Emergency (ER) | payer OTHER ==
[~2024-11-14] VITALS: Ht 170.2 cm; Wt 94.0 kg
[2024-11-14 19:51] LABS: PLATELET COUNT, AUTOMATED 328 10^3/uL (150-450)
[2024-11-14 20:16] LABS: ETHYL ALCOHOL (ETHANOL) < 0.003 % (0.000-0.010)
[2024-11-14 20:18] LABS: ALT/SGPT 27 U/L (7.0-40); AST/SGOT 48 U/L (<34); CALCIUM LEVEL 8.6 MG/DL (8.5-10.1); CARBON DIOXIDE LEVEL 27 MMOL/L (20-31); CHLORIDE LEVEL 106 MMOL/L (98-107); CREATININE FOR GFR 0.72 MG/DL (0.55-1.30); GLOMERULAR FILTRATION RATE > 90.0 (>60); POTASSIUM SERUM 3.4 MMOL/L (3.5-5.1); SALICYLATE LEVEL < 3.0 MG/DL (<30); SODIUM LEVEL 143 MMOL/L (136-145)
[2024-11-14 20:20] LABS: HCG, SERUM QUALITATIVE NEGATIVE (NEGATIVE)
[2024-11-14] MEDS: POTASSIUM CHLORIDE 10MEQ SR TABLET PO ONE (21:57)
[2024-11-14 23:23] VITALS: BP 103/58; TEMP 97.5; O2SAT 99
[2024-11-15] MEDS ORDERED: HOME MED LIST COMPLETE! XX SCH (07:15)
[2024-11-15 07:58] LABS: BARBITURATES URINE NEGATIVE (NEGATIVE); COCAINE METABOLITE URINE NEGATIVE (NEGATIVE); METHADONE URINE NEGATIVE (NEGATIVE); OPIATES URINE NEGATIVE (NEGATIVE); PHENCYCLIDINE URINE NEGATIVE (NEGATIVE)
[2024-11-15 08:00] LABS: AMPHETAMINES LEVEL URINE POSITIVE (NEGATIVE); BENZODIAZEPINES URINE POSITIVE (NEGATIVE); CANNABINOIDS URINE POSITIVE (NEGATIVE)
== END 2024-11-15 12:05 | disposition home or self-care (01) ==
LOC: M ED 18:01
DX: F15.159 Other stimulant abuse with stimulant-induced psychotic disorder, unspecified (principal); F60.3 Borderline personality disorder; Z79.899 Other long term (current) drug therapy

== ENCOUNTER 2024-11-15 14:13 | Emergency (ER) | payer OTHER ==
[2024-11-15 14:22] VITALS: BP 167/88; TEMP 97; O2SAT 99
== END 2024-11-15 15:42 | disposition home or self-care (01) ==
LOC: M ED 14:13
DX: F15.188 Other stimulant abuse with other stimulant-induced disorder (principal); Z79.899 Other long term (current) drug therapy

== ENCOUNTER 2024-11-15 23:15 | Emergency (ER) | payer OTHER ==
[~2024-11-15] VITALS: Ht 170.2 cm; Wt 93.8 kg
[2024-11-16 00:12] LABS: HCG, SERUM QUALITATIVE NEGATIVE (NEGATIVE)
[2024-11-16 00:18] LABS: ETHYL ALCOHOL (ETHANOL) 0.003 % (0.000-0.010)
[2024-11-16 00:20] LABS: SALICYLATE LEVEL < 3.0 MG/DL (<30)
[2024-11-16 00:24] LABS: ALT/SGPT 32 U/L (7.0-40); AST/SGOT 38 U/L (<34); CALCIUM LEVEL 9.9 MG/DL (8.5-10.1); CARBON DIOXIDE LEVEL 25 MMOL/L (20-31); CHLORIDE LEVEL 107 MMOL/L (98-107); CREATININE FOR GFR 0.97 MG/DL (0.55-1.30); GLOMERULAR FILTRATION RATE 78.6 (>60); POTASSIUM SERUM 4.5 MMOL/L (3.5-5.1); SODIUM LEVEL 143 MMOL/L (136-145)
[2024-11-16 00:34] LABS: PLATELET COUNT, AUTOMATED 455 10^3/uL (150-450)
[2024-11-16] MEDS ORDERED: ACETAMINOPHEN 325 MG TAB As Ordered ONE (07:28)
[2024-11-16] MEDS: ACETAMINOPHEN 325 MG TAB PO ONE (07:43)
[2024-11-16] MEDS ORDERED: HOME MED LIST COMPLETE! XX SCH (07:45)
[2024-11-16 11:38] VITALS: BP 113/57; TEMP 96.7; O2SAT 100
== END 2024-11-16 11:43 | disposition home or self-care (01) ==
LOC: M ED 23:15
DX: F15.120 Other stimulant abuse with intoxication, uncomplicated (principal); Z79.899 Other long term (current) drug therapy

== ENCOUNTER 2024-11-19 08:30 | Emergency (ER) | payer OTHER ==
[2024-11-20] MEDS ORDERED: PENI500T PO (12:52)
== END 2024-11-19 08:39 | disposition left against medical advice (07) ==
LOC: M ED 08:30
DX: Z53.21 Procedure and treatment not carried out due to patient leaving prior to being seen by health care provider (principal)

== ENCOUNTER 2024-11-19 10:53 | Emergency (ER) | payer OTHER ==
[2024-11-19] MEDS ORDERED: HOME MED LIST COMPLETE! XX SCH (11:10)
[2024-11-19 12:28] LABS: BARBITURATES URINE NEGATIVE (NEGATIVE); COCAINE METABOLITE URINE NEGATIVE (NEGATIVE)
[2024-11-19 12:29] LABS: METHADONE URINE NEGATIVE (NEGATIVE); OPIATES URINE NEGATIVE (NEGATIVE); PHENCYCLIDINE URINE NEGATIVE (NEGATIVE)
[2024-11-19 12:30] LABS: AMPHETAMINES LEVEL URINE POSITIVE (NEGATIVE); BENZODIAZEPINES URINE POSITIVE (NEGATIVE); CANNABINOIDS URINE POSITIVE (NEGATIVE)
[2024-11-19 12:37] LABS: PLATELET COUNT, AUTOMATED 362 10^3/uL (150-450)
[2024-11-19 12:56] LABS: ETHYL ALCOHOL (ETHANOL) 0.004 % (0.000-0.010)
[2024-11-19 12:58] LABS: ALT/SGPT 23 U/L (7.0-40); AST/SGOT 21 U/L (<34); CALCIUM LEVEL 9.2 MG/DL (8.5-10.1); CARBON DIOXIDE LEVEL 25 MMOL/L (20-31); CHLORIDE LEVEL 110 MMOL/L (98-107); CREATININE FOR GFR 0.87 MG/DL (0.55-1.30); GLOMERULAR FILTRATION RATE 89.6 (>60); POTASSIUM SERUM 3.6 MMOL/L (3.5-5.1); SALICYLATE LEVEL < 3.0 MG/DL (<30); SODIUM LEVEL 145 MMOL/L (136-145)
[2024-11-19 13:20] LABS: HCG, SERUM QUALITATIVE NEGATIVE (NEGATIVE)
[2024-11-19] MEDS ORDERED: OVERDOSE RESCUE KIT XX SCH (18:35)
[2024-11-20] MEDS: IBUPROFEN 600 MG TAB PO ONE (07:35)
[2024-11-20 07:50] VITALS: BP 110/55
[2024-11-20] MEDS: COMBIVENT RESPIMAT 100-20 MCG INHALER 4 GM INH STA (07:58)
[2024-11-20] MEDS: PENICILLIN V POTASSIUM 500 MG TAB PO SCH (10:13)
[2024-11-20 12:33] VITALS: TEMP 97.2; O2SAT 99
[2024-11-20] MEDS ORDERED: PENI500T PO (12:52)
== END 2024-11-20 13:17 | disposition home or self-care (01) ==
LOC: M ED 10:53
DX: J02.0 Streptococcal pharyngitis (principal); B34.9 Viral infection, unspecified; F19.188 Other psychoactive substance abuse with other psychoactive substance-induced disorder; F31.9 Bipolar disorder, unspecified; Z79.2 Long term (current) use of antibiotics; Z79.899 Other long term (current) drug therapy
CPT/HCPCS: 80048; 80076; 80143; 80307; 82077; 84443; 84703; 85027; 87486; 87581; 87633; 87798; 87880; 93005; 94640; 96372; 99284; J2060

== ENCOUNTER 2024-11-24 11:01 | Emergency (ER) | payer OTHER ==
[~2024-11-24] VITALS: Ht 167.6 cm; Wt 92.0 kg
[~2024-11-24 11:01] MED LIST changes: +PENI500T PO
[2024-11-24 15:35] LABS: VENOUS BASE EXCESS 0.1 (-2.0-2.0); VENOUS HCO3 26.4 MMOL/L (23.0-27.0); VENOUS O2 SATURATION 72.3 % (60.0-80.0); VENOUS PARTIAL PRESSURE CO2 49.3 mmHg (38.0-50.0); VENOUS PARTIAL PRESSURE O2 39.7 mmHg (30.0-50.0); VENOUS PH 7.346 UNITS (7.330-7.430); VENOUS STANDARD HCO3 24.0 MMOL/L; VENOUS TOTAL CO2 27.9 MMOL/L (24.0-28.0)
[2024-11-24 15:44] LABS: BASO # 0.0 10^3/uL (0.0-0.2); BASO % 0.3 % (0.0-1.0); EOS # 0.2 10^3/uL (0.0-0.5); EOS % 2.0 % (0.0-3.0); LYMPH # 1.7 10^3/uL (1.5-5.0); LYMPH % 22.7 % (24.0-44.0); MONO # 0.5 10^3/uL (0.0-0.8); MONO % 6.9 % (2.0-8.0); NEUTROPHILS # 5.2 10^3/uL (1.5-8.5); NEUTROPHILS % 67.7 % (36.0-66.0); PLATELET COUNT, AUTOMATED 263 10^3/uL (150-450)
[2024-11-24 16:06] LABS: ALT/SGPT 14 U/L (7.0-40); AST/SGOT 19 U/L (<34); CALCIUM LEVEL 8.8 MG/DL (8.5-10.1); CARBON DIOXIDE LEVEL 26 MMOL/L (20-31); CHLORIDE LEVEL 109 MMOL/L (98-107); CREATININE FOR GFR 0.62 MG/DL (0.55-1.30); GLOMERULAR FILTRATION RATE > 90.0 (>60); POTASSIUM SERUM 4.7 MMOL/L (3.5-5.1); SODIUM LEVEL 145 MMOL/L (136-145)
[2024-11-24 16:11] LABS: HCG, SERUM QUALITATIVE NEGATIVE (NEGATIVE)
[2024-11-24 16:34] LABS: ETHYL ALCOHOL (ETHANOL) 0.003 % (0.000-0.010)
[2024-11-24 16:35] LABS: CK-MB VALUE MASS < 1.0 NG/ML (<3.6)
[2024-11-24 16:36] LABS: SALICYLATE LEVEL < 3.0 MG/DL (<30)
[2024-11-24 16:39] LABS: CPK CREATINE PHOSPHOKINASE 35 U/L (34-145)
[2024-11-24 17:38] LABS: CK-MB VALUE MASS 2.2 NG/ML (<3.6)
[2024-11-24 17:41] LABS: CPK CREATINE PHOSPHOKINASE 96.0 U/L (34-145); MB/CK RELATIVE INDEX 2.29 (< OR =4)
[2024-11-25 06:59] VITALS: BP 112/67
[2024-11-25 07:19] VITALS: TEMP 96.8; O2SAT 96
[2024-11-25] MEDS: PENICILLIN V POTASSIUM 500 MG TAB PO ONE (08:31)
[2024-11-25] MEDS: LORazepam 1 MG TAB PO STA (08:31)
[2024-11-25] MEDS ORDERED: VENTAER INH (08:32)
[2024-11-25] MEDS: AMOXICILLIN 500 MG CAP PO ONE (08:32)
== END 2024-11-25 08:45 | disposition home or self-care (01) ==
LOC: M ED 11:01
DX: J02.0 Streptococcal pharyngitis (principal); R00.1 Bradycardia, unspecified; E11.9 Type 2 diabetes mellitus without complications; I10 Essential (primary) hypertension; K58.9 Irritable bowel syndrome, unspecified; K21.9 Gastro-esophageal reflux disease without esophagitis; F17.210 Nicotine dependence, cigarettes, uncomplicated; F12.10 Cannabis abuse, uncomplicated; Z79.899 Other long term (current) drug therapy
CPT/HCPCS: 71045; 80048; 80076; 80143; 82077; 82550; 82553; 82803; 83880; 84484; 84703; 85025; 93005; 93041; 94760; 96374; 99285; J2060

== ENCOUNTER 2024-11-26 01:46 | Emergency (ER) | payer OTHER ==
[~2024-11-26] VITALS: Ht 165.1 cm; Wt 100.0 kg
[2024-11-26] MEDS: diphenhydrAMINE 50 MG/ML VIAL IM ONE (01:56)
[2024-11-26] MEDS: HALOPERIDOL LACTATE 5 MG/ML VIAL IM ONE (01:56)
[2024-11-26 02:16] LABS: PLATELET COUNT, AUTOMATED 453 10^3/uL (150-450)
[2024-11-26 02:34] LABS: ETHYL ALCOHOL (ETHANOL) < 0.003 % (0.000-0.010)
[2024-11-26 02:36] LABS: SALICYLATE LEVEL < 3.0 MG/DL (<30)
[2024-11-26 02:44] LABS: ALT/SGPT 19 U/L (7.0-40); AST/SGOT 30 U/L (<34); CALCIUM LEVEL 10.1 MG/DL (8.5-10.1); CARBON DIOXIDE LEVEL 24 MMOL/L (20-31); CHLORIDE LEVEL 107 MMOL/L (98-107); CREATININE FOR GFR 1.05 MG/DL (0.55-1.30); GLOMERULAR FILTRATION RATE 71.5 (>60); POTASSIUM SERUM 4.1 MMOL/L (3.5-5.1); SODIUM LEVEL 147 MMOL/L (136-145)
[2024-11-26 02:48] LABS: HCG, SERUM QUALITATIVE NEGATIVE (NEGATIVE)
[2024-11-26 03:03] LABS: BARBITURATES URINE NEGATIVE (NEGATIVE)
[2024-11-26 03:04] LABS: COCAINE METABOLITE URINE NEGATIVE (NEGATIVE); METHADONE URINE NEGATIVE (NEGATIVE); OPIATES URINE NEGATIVE (NEGATIVE); PHENCYCLIDINE URINE NEGATIVE (NEGATIVE)
[2024-11-26 03:05] LABS: AMPHETAMINES LEVEL URINE POSITIVE (NEGATIVE); BENZODIAZEPINES URINE POSITIVE (NEGATIVE); CANNABINOIDS URINE POSITIVE (NEGATIVE)
[2024-11-26] MEDS ORDERED: HOME MED LIST COMPLETE! XX SCH (07:10)
[2024-11-26 09:56] VITALS: BP 124/79; TEMP 97.2; O2SAT 99
== END 2024-11-26 09:59 | disposition home or self-care (01) ==
LOC: M ED 01:46
DX: F31.9 Bipolar disorder, unspecified (principal); F19.10 Other psychoactive substance abuse, uncomplicated; Z79.899 Other long term (current) drug therapy
CPT/HCPCS: 80048; 80076; 80143; 80307; 82077; 84443; 84703; 85027; 96372; 99285; J1200; J1630; J2060

== ENCOUNTER 2024-11-29 13:50 | Emergency (ER) | payer OTHER ==
[2024-11-29] MEDS ORDERED: PENI500T PO (15:30)
[2024-11-29] MEDS ORDERED: HOME MED LIST COMPLETE! XX SCH (15:30)
[2024-11-29] MEDS ORDERED: ALBU8.5H INH (15:30)
[2024-11-29] MEDS ORDERED: OVERDOSE RESCUE KIT XX SCH (16:40)
== END 2024-11-29 17:17 | disposition home or self-care (01) ==
LOC: M ED 13:50
DX: F19.10 Other psychoactive substance abuse, uncomplicated (principal); Z79.51 Long term (current) use of inhaled steroids; Z79.899 Other long term (current) drug therapy; Z79.2 Long term (current) use of antibiotics

== ENCOUNTER 2024-12-01 20:55 | Emergency (ER) | payer OTHER ==
[2024-12-01 21:35] LABS: PLATELET COUNT, AUTOMATED 296 10^3/uL (150-450)
[2024-12-01 22:00] LABS: BARBITURATES URINE NEGATIVE (NEGATIVE); BENZODIAZEPINES URINE NEGATIVE (NEGATIVE); COCAINE METABOLITE URINE NEGATIVE (NEGATIVE); METHADONE URINE NEGATIVE (NEGATIVE); OPIATES URINE NEGATIVE (NEGATIVE); PHENCYCLIDINE URINE NEGATIVE (NEGATIVE)
[2024-12-01 22:02] LABS: AMPHETAMINES LEVEL URINE POSITIVE (NEGATIVE); CANNABINOIDS URINE POSITIVE (NEGATIVE); ETHYL ALCOHOL (ETHANOL) < 0.003 % (0.000-0.010)
[2024-12-01 22:03] LABS: SALICYLATE LEVEL < 3.0 MG/DL (<30)
[2024-12-01 22:11] LABS: ALT/SGPT 24 U/L (7.0-40); AST/SGOT 26 U/L (<34); CALCIUM LEVEL 9.0 MG/DL (8.5-10.1); CARBON DIOXIDE LEVEL 21 MMOL/L (20-31); CHLORIDE LEVEL 109 MMOL/L (98-107); CREATININE FOR GFR 0.74 MG/DL (0.55-1.30); GLOMERULAR FILTRATION RATE > 90.0 (>60); POTASSIUM SERUM 4.0 MMOL/L (3.5-5.1); SODIUM LEVEL 143 MMOL/L (136-145)
[2024-12-02 05:16] VITALS: TEMP 97.9
[2024-12-02 14:55] VITALS: BP 130/99; O2SAT 100
[2024-12-02] MEDS: LORATADINE 10 MG TAB PO ONE (15:00)
== END 2024-12-02 15:14 | disposition home or self-care (01) ==
LOC: M ED 20:55
DX: F15.10 Other stimulant abuse, uncomplicated (principal); F31.9 Bipolar disorder, unspecified; K58.9 Irritable bowel syndrome, unspecified

== ENCOUNTER 2024-12-07 14:57 | Emergency (ER) | payer OTHER ==
[~2024-12-07] VITALS: Ht 165.1 cm; Wt 92.0 kg
[2024-12-07] MEDS ORDERED: HOME MED LIST COMPLETE! XX SCH (16:45)
[2024-12-07 17:54] LABS: PLATELET COUNT, AUTOMATED 258 10^3/uL (150-450)
[2024-12-07 18:22] LABS: ETHYL ALCOHOL (ETHANOL) < 0.003 % (0.000-0.010)
[2024-12-07 18:24] LABS: ALT/SGPT 19 U/L (7.0-40); AST/SGOT 21 U/L (<34); CALCIUM LEVEL 8.8 MG/DL (8.5-10.1); CARBON DIOXIDE LEVEL 25 MMOL/L (20-31); CHLORIDE LEVEL 112 MMOL/L (98-107); CREATININE FOR GFR 0.66 MG/DL (0.55-1.30); GLOMERULAR FILTRATION RATE > 90.0 (>60); POTASSIUM SERUM 4.2 MMOL/L (3.5-5.1); SALICYLATE LEVEL < 3.0 MG/DL (<30); SODIUM LEVEL 145 MMOL/L (136-145)
[2024-12-07 18:26] LABS: HCG, SERUM QUALITATIVE NEGATIVE (NEGATIVE)
[2024-12-08] MEDS: CETIRIZINE 10 MG TAB PO ONE (08:55)
[2024-12-08 09:15] LABS: BARBITURATES URINE NEGATIVE (NEGATIVE); BENZODIAZEPINES URINE NEGATIVE (NEGATIVE); METHADONE URINE NEGATIVE (NEGATIVE); OPIATES URINE NEGATIVE (NEGATIVE); PHENCYCLIDINE URINE NEGATIVE (NEGATIVE)
[2024-12-08 09:29] LABS: AMPHETAMINES LEVEL URINE POSITIVE (NEGATIVE); CANNABINOIDS URINE POSITIVE (NEGATIVE); COCAINE METABOLITE URINE POSITIVE (NEGATIVE)
[2024-12-08 09:50] LABS: APPEARANCE, URINE CLOUDY (CLEAR); BACTERIA, URINE AUTO 3+ (NEGATIVE); BILIRUBIN, URINE AUTO NEGATIVE (NEGATIVE); BLOOD, URINE BLOOD 2+ (NEGATIVE); GLUCOSE, URINE (UA) AUTO NEGATIVE (NEGATIVE); KETONE, URINE AUTO TRACE mg/dL (NEGATIVE); LEUKOCYTE ESTERASE, URINE AUTO 2+ (NEGATIVE); MUCUS, URINE LARGE (NEGATIVE); NITRITE, URINE AUTO POSITIVE (NEGATIVE); PROTEIN, URINE AUTO 1+ mg/dL (NEGATIVE); RBC, URINE AUTO 9 /HPF (0-3); SPECIFIC GRAVITY URINE AUTO 1.027 (1.002-1.035); SQUAMOUS EPITHELIAL CELL UR AU 2 /HPF (0-6); UROBILINOGEN, URINE AUTO 0.2 mg/dL (0.0-2.0); WBC, URINE AUTO 101 /HPF (0-3)
[2024-12-08] MEDS ORDERED: NITR100C3 PO (10:28)
[2024-12-08 11:02] VITALS: BP 122/60; TEMP 97; O2SAT 98
[2024-12-08 12:21] LABS: Trichomonas vaginalis (AMP) NOT DETECTED (NEGATIVE)
[2024-12-08 12:44] LABS: GC DNA AMPLIFICATION NEGATIVE (NEGATIVE)
== END 2024-12-08 11:08 | disposition home or self-care (01) ==
LOC: M ED 14:57
DX: F19.159 Other psychoactive substance abuse with psychoactive substance-induced psychotic disorder, unspecified (principal); F29 Unspecified psychosis not due to a substance or known physiological condition; N39.0 Urinary tract infection, site not specified; F31.9 Bipolar disorder, unspecified; F60.3 Borderline personality disorder; Z79.899 Other long term (current) drug therapy

== ENCOUNTER 2024-12-12 02:30 | Emergency (ER) | payer OTHER ==
[~2024-12-12] VITALS: Ht 165.1 cm; Wt 92.0 kg
[~2024-12-12 02:30] MED LIST changes: +NITR100C3 PO
[2024-12-12] MEDS: MIDAZOLAM 5 MG/ML 1 ML VIAL IM ONE (02:57)
[2024-12-12 03:11] LABS: BASO # 0.0 10^3/uL (0.0-0.2); BASO % 0.2 % (0.0-1.0); EOS # 0.0 10^3/uL (0.0-0.5); EOS % 0.1 % (0.0-3.0); LYMPH # 1.8 10^3/uL (1.5-5.0); LYMPH % 11.8 % (24.0-44.0); MONO # 0.9 10^3/uL (0.0-0.8); MONO % 6.0 % (2.0-8.0); NEUTROPHILS # 12.3 10^3/uL (1.5-8.5); NEUTROPHILS % 81.5 % (36.0-66.0); PLATELET COUNT, AUTOMATED 350 10^3/uL (150-450)
[2024-12-12 03:31] LABS: BARBITURATES URINE NEGATIVE (NEGATIVE); BENZODIAZEPINES URINE NEGATIVE (NEGATIVE); COCAINE METABOLITE URINE NEGATIVE (NEGATIVE); METHADONE URINE NEGATIVE (NEGATIVE); OPIATES URINE NEGATIVE (NEGATIVE); PHENCYCLIDINE URINE NEGATIVE (NEGATIVE)
[2024-12-12 03:32] LABS: AMPHETAMINES LEVEL URINE POSITIVE (NEGATIVE); CANNABINOIDS URINE POSITIVE (NEGATIVE)
[2024-12-12 03:50] LABS: CALCIUM LEVEL 9.6 MG/DL (8.5-10.1); CARBON DIOXIDE LEVEL 26 MMOL/L (20-31); CHLORIDE LEVEL 107 MMOL/L (98-107); CREATININE FOR GFR 0.79 MG/DL (0.55-1.30); GLOMERULAR FILTRATION RATE > 90.0 (>60); MAGNESIUM LEVEL 1.5 MG/DL (1.8-2.4); POTASSIUM SERUM 4.0 MMOL/L (3.5-5.1); SODIUM LEVEL 144 MMOL/L (136-145)
[2024-12-12 04:25] LABS: HCG, SERUM QUALITATIVE NEGATIVE (NEGATIVE)
[2024-12-12] MEDS: OLANZapine ORAL DISINTEGRATING TAB 5MG PO ONE (05:13)
[2024-12-12] MEDS: diphenhydrAMINE 50 MG/ML VIAL IM ONE (06:03)
[2024-12-12] MEDS: HALOPERIDOL LACTATE 5 MG/ML VIAL IM ONE (06:03)
[2024-12-12 08:00] VITALS: TEMP 97.6
[2024-12-12 08:47] VITALS: BP 122/70; O2SAT 99
[2024-12-12] MEDS: MAGNESIUM OXIDE 400 MG TAB PO ONE (10:29)
== END 2024-12-12 10:48 | disposition home or self-care (01) ==
LOC: M ED 02:30
DX: F19.10 Other psychoactive substance abuse, uncomplicated (principal); F31.9 Bipolar disorder, unspecified; F41.9 Anxiety disorder, unspecified; Z79.51 Long term (current) use of inhaled steroids; Z79.899 Other long term (current) drug therapy
CPT/HCPCS: 80048; 80307; 83735; 84443; 84703; 85025; 96372; 99285; J1200; J1630; J2060; J2250